=== PATIENT | female | born 1945 | race Caucasian/White ===

== ENCOUNTER 2018-01-14 09:23 | Inpatient (IN) | payer MEDICARE, MEDICAID ==
[2018-01-14 10:06] LABS: #Lymphocytes 0.8 thou/uL (1.20-3.40); #Monocytes 0.7 thou/uL (0.11-0.59); #Neutrophils 10.9 thou/uL (1.40-6.50); %Basophils 0.2 % (0.0-1.0); %Eosinophils 0.4 % (0.0-10.0); %Lymphocytes 6.5 % (21.0-51.0); %Monocytes 5.4 % (0.0-10.0); %Neutrophils 87.5 % (42.0-75.0); Hemoglobin 14.9 g/dL (12.0-16.0); Mean Corpuscular HGB CONC 33.5 g/dL (32.0-36.0); Mean Corpuscular Hemoglobin 30.4 pg (27.0-31.0); Mean Corpuscular Volume 90.7 fl (81.0-99.0); Mean Platelet Volume 7.1 fL (7.4-10.4); Platelet Count 225 thou/uL (130-400); RBC Distribution Width 11.8 % (11.5-14.5); Red Blood Cell (RBC) Count 4.89 mill/uL (4.20-5.40); White Blood Cell (WBC) Count 12.4 thou/uL (4.8-10.8)
[2018-01-14 10:24] LABS: ALT (SGPT) 26 U/L (8-55); AST (SGOT) 21 U/L (5-34); Alkaline Phosphatase 60 U/L (40-150); Anion Gap 12 mmol/L (10-20); BUN (Urea Nitrogen) 13 mg/dL (9.8-20.1); Bilirubin, Total 1.1 mg/dL (0.2-1.2); Calc. Creatinine Clearance 0 mL/min (70-130); Calcium 9.6 mg/dL (7.8-10.44); Carbon Dioxide 24 mmol/L (23-31); Chloride 105 mmol/L (98-107); Estimated GFR-MDRD 78; Globulin 2.9 g/dL (2.4-3.5); Glucose 141 mg/dL (83-110); Lipase 22 U/L (8-78); Potassium 3.5 mmol/L (3.5-5.1); Protein, Total 6.9 g/dL (6.0-8.3); Sodium 137 mmol/L (136-145)
--- NOTE | 2018-01-14 10:51 | ULT ---
RIGHT UPPER QUADRANT ULTRASOUND: Indication: Right upper quadrant pain. Nausea, vomiting, and diarrhea. Technique: Grayscale and doppler ultrasound images were obtained in the right upper quadrant. FINDINGS: Visualized aspect of the abdominal aorta are unremarkable. No focal hepatic lesion is evident. Visualized gallbladder is unremarkable. Sonographic Munguia's sign is indeterminate. Common bile duct measured 4 mm. Visualized aspects of the pancreas are within normal limits. The right kidney measures 10.4 cm in length. No focal renal lesion or hydronephrosis is evident. IMPRESSION: No acute sonographic abnormalities seen in the right upper quadrant. POS: [facility]
--- NOTE | 2018-01-14 11:24 | CT ---
CT ABDOMEN AND PELVIS WITHOUT CONTRAST: Date: 01/14/18 HISTORY: Nausea, vomiting, diarrhea, and abdominal pain. FINDINGS: Absence of oral and IV contrast reduces the sensitivity of exam, particularly for evaluation of solid organs and bowel. Comparison made with exam of 10/15/16. There are mild dependent changes in the lung bases. No free air is seen in the abdomen or pelvis. No calcified gallstones are seen. No calculi noted in the kidneys, ureters, or the urinary bladder. No h ydroureteronephrosis is noted on either side. There is dilatation of the proximal and mid small bowel loops. There is a small amount of free fluid in the pelvis. There are vascular calcifications without evidence of aneurysmal dilatation of the abdominal aorta. T here are degenerative changes in the spine. Surgical clips in the retroperitoneum and pelvis are agai n noted. IMPRESSION: Findings are suspicious for small bowel obstruction. POS: [facility]
[2018-01-14] MEDS ORDERED: Benzocaine 20% Spray 60 ML CAN ONE (11:43)
--- NOTE | 2018-01-14 11:49 | PDOC.PN ---
- Subjective Encounter Start Date: 01/14/18 Encounter Start Time: 11:48 -: old records requested/rev see my H & P later - Objective MAR Reviewed: Yes Result Diagrams: 01/14/18 09:51 01/14/18 09:51 Radiology Reviewed by me: Yes EKG Reviewed by me: Yes Phys Exam - Physical Examination Constitutional: NAD HEENT: PERRLA, moist MMs, sclera anicteric Neck: no JVD, supple Respiratory: no wheezing, no rales, no rhonchi Cardiovascular: RRR, no significant murmur, no rub Gastrointestinal: soft, no distention, positive bowel sounds discomfort Musculoskeletal: no edema, pulses present Neurological: non-focal, normal sensation, moves all 4 limbs Psychiatric: normal affect, A&O x 3 Skin: no rash, normal turgor Dx/Plan (1) SBO (small bowel obstruction) Code(s): K56.69 - OTHER INTESTINAL OBSTRUCTION * DO NOT USE * Status: Acute (2) Dyslipidemia Code(s): E78.5 - HYPERLIPIDEMIA, UNSPECIFIED Status: Chronic (3) Hx of anxiety disorder Code(s): Z86.59 - PERSONAL HISTORY OF OTHER MENTAL AND BEHAVIORAL DISORDERS Status: Chronic (4) Hypertension Code(s): I10 - ESSENTIAL (PRIMARY) HYPERTENSION Status: Chronic Qualifiers: (5) Hypothyroidism Code(s): E03.9 - HYPOTHYROIDISM, UNSPECIFIED Status: Chronic (6) Uterine cancer Code(s): C55 - MALIGNANT NEOPLASM OF UTERUS, PART UNSPECIFIED Status: Chronic - Plan cont current plan of care * NG tube with LIS * surgery consult * IVF * see my H & P later for further detail. Review of Systems - Review of Systems Constitutional: negative: fever, chills, sweats, weakness, malaise, other Eyes: negative: Pain, Vision Change, Conjunctivae Inflammation, Eyelid Inflammation, Redness, Other ENT: negative: Ear Pain, Ear Discharge, Nose Pain, Nose Discharge, Nose Congestion, Mouth Pain, Mouth Swelling, Throat Pain, Throat Swelling, Other Respiratory: negative: Cough, Dry, Shortness of Breath, Hemoptysis, SOB with Excertion, Pleuritic Pain, Sputum, Wheezing Cardiovascular: negative: chest pain, palpitations, orthopnea, paroxysmal nocturnal dyspnea, edema, light headedness, other Gastrointestinal: Nausea, Vomiting, Abdominal Pain, Diarrhea. negative: Constipation, Melena, Hematochezia, Other Genitourinary: negative: Dysuria, Frequency, Incontinence, Hematuria, Retention , Other Musculoskeletal: negative: Neck Pain, Shoulder Pain, Arm Pain, Back Pain, Hand Pain, Leg Pain, Foot Pain, Other Skin: negative: Rash, Lesions, Abdulkadir, Bruising, Other - Medications/Allergies Allergies/Adverse Reactions: Allergies Allergy/AdvReac Type Severity Reaction Status Date / Time Iodine and Iodide Containing Allergy Severe Verified 08/23/14 21:14 Produc Hives metronidazole [From Flagyl] Allergy Verified 08/23/14 21:14
--- NOTE | 2018-01-14 13:02 | RAD ---
ABDOMEN 1 VIEW: Date: 01/14/18 HISTORY: NG tube placement, nausea and vomiting. FINDINGS/IMPRESSION: There is a nasogastric tube with tip in the projection of the stomach and the left upper quadrant. POS: [facility]
--- NOTE | 2018-01-14 13:05 | CON ---
DATE OF CONSULTATION: 01/14/2018 REQUESTING PHYSICIAN: Dr. Lenz HISTORY OF PRESENT ILLNESS: This is a 72-year-old woman who presented to emergency department today given a history of insidious onset crampy abdominal pain which started yesterday. The pain was sever e, associated with multiple episodes of nausea and bilious emesis. The patient passed a lot of flatu s yesterday. This morning she had 3 bouts of diarrhea which failed to relieve the abdominal pain. As a result, lorraine bernardo presented to emergency department. She denies any fevers or chills. She has had multiple previous hospital visits and admissions relating to acute small-bowel obstruction. She has had multiple abdo jai operations in the past. At the time of my evaluation, the patient reports a 2-3/10 abdominal pain. She has a nasogastric tub e which has been placed here in the emergency department which returns nonbilious moderate amount of gastric effluent. PAST MEDICAL HISTORY: Pertinent for uterine carcinoma, multiple previous small bowel obstructions, s he is status post chemoradiation therapy. Other pertinent past medical history includes chronic anxi ety disorder. PAST SURGICAL HISTORY: Pertinent for , total abdominal hysterectomy followed by adjuvant ch emoradiation therapy. She has had upper and lower endoscopies in the past. SOCIAL HISTORY: The patient lives at home independently. She denies any cigarette smoking, ethanol or illicit drug abuse. FAMILY HISTORY: Noncontributory for this patient's age. REVIEW OF SYSTEMS: This morning includes runny nose, cough over the last 24-36 hours. Otherwise, un remarkable except for as stated in past medical history and chief complaint. PHYSICAL EXAMINATION: GENERAL: This reveals a 72-year-old normally developed woman who is otherwise coherent and interacti ve and appears stated age. The patient is alert and oriented x3, appears to be in no acute distress at the time of my evaluation. VITAL SIGNS: Includes blood pressure 153/90, heart rate is 77, respiratory rate is 16, temperature i s 98.2 degrees Fahrenheit. Oxygen saturation is 92% on room air. HEENT: Reveals normocephalic and atraumatic. Pupils are equal, round, and reactive to light and acc ommodation. Extraocular muscles are intact bilaterally. No sclerae icterus present. Oral mucosa is pink and moist. No lesions are noted. NECK: Supple. No palpable lymphadenopathy or thyromegaly present. CARDIOVASCULAR: Reveals regular rate and rhythm, no murmurs or gallops auscultated. LUNGS: Clear to auscultation bilaterally. Her breathing is regular and unlabored. ABDOMEN: Soft with mild tenderness to deep palpation. There is no abdominal distention present. Mo wel sounds in all 4 quadrants appear normoactive. EXTREMITIES: Reveals 2+ radial and pedal pulses bilaterally. No ankle edema is present. NEUROLOGIC: Reveals no focal deficits present. PERTINENT LABORATORY DATA: Today includes a CBC with 12,400 white blood cells, hemoglobin 14.9, ijeoma tocrit is 44.3, platelet count is 225,000. Metabolic profile: Sodium 137, potassium is 3.5, chloride is 105, bicarbonate is 24, BUN 13, creatin ine 0.73, glucose 141, AST and ALT normal at 21 and 26 respectively. Serum lipase is normal at 22. I have personally reviewed the CT scan of the abdomen and pelvis which is without oral contrast. Helena s is remarkable for multiple distended loops of proximal and mid small bowel. There is, however, gas in the colon and rectum. There is minimal free fluid in the pelvis. There is no pneumatosis intest inalis seen. IMPRESSION: Multiple distended loops of small bowel, likely secondary to recurrent partial small-bow el obstruction versus gastroenteritis. PLAN: Bowel rest with nasogastric tube decompression. There is no acute surgical indication for thi s patient at this time. We will initiate a small bowel follow through and make further recommendatio ns as necessary. The above findings and plan discussed with the patient who indicates understanding of information giv en. I have answered her questions. Thank you again, Dr. Lenz for allowing me the opportunity to participate in the care of this patie nt.
[2018-01-14] MEDS ORDERED: Ondansetron PF 4 MG/2 ML Vial IVP PRN (13:12)
[2018-01-14] MEDS ORDERED: Eucerin (Mineral Oil/Petrolatum,White) 30 gm Jar TOP PRN (13:12)
[2018-01-14] MEDS ORDERED: Acetaminophen 325 MG TAB PO PRN (13:12)
[2018-01-14] MEDS ORDERED: hydrALAZINE 20 MG/ML VIAL SLOW IVP PRN (13:12)
[2018-01-14] MEDS ORDERED: Artificial Tears 18 DROP/0.9 ML EA EYE PRN (13:12)
[2018-01-14] MEDS ORDERED: Sodium Chloride 0.65% Nasal 44 ML BOT EA NARE PRN (13:12)
[2018-01-14 13:15] VITALS: BMI 30.2
--- NOTE | 2018-01-14 16:05 | RAD ---
GASTROGRAFIN SMALL BOWEL FOLLOW THROUGH: INDICATION: History of small bowel obstruction. COMPARISON: CT of the abdomen and pelvis dated 01/14/18. FINDINGS: Supervisor Of Officials image demonstrated mild to moderately dilated loop of gas-filled small bowel within the central abdomen. Gas is present within the colon. Subsequent images after administration of Gastrografin c ontrast through the nasogastric tube demonstrates filling of mildly prominent loops of small bowel wi thin the central abdomen. Subsequent images obtained at 1 hour demonstrate filling of contrast withi n the cecum and right hemicolon. There are numerous surgical clips within the lower abdomen and pelv is. There is scattered degenerative change. IMPRESSION: 1. Findings consistent with mild partial small bowel obstruction of the mid to distal small bowel. 2. Small bowel transit time of 1 hour. POS: [facility]
[2018-01-14] MEDS: D5 0.9% NS w/ 20 mEq KCl 1,000 ML IV SCH (16:14)
[2018-01-14] MEDS ORDERED: MD-Gastroview 120 ML BOT ONE (17:54)
[2018-01-15] MEDS: D5 0.9% NS w/ 20 mEq KCl 1,000 ML IV SCH ×2 (01:27→09:59)
[2018-01-15 04:29] LABS: Bilirubin Negative (Negative); Blood, Urine Negative (Negative); Clarity CLEAR (Clear); Glucose, Urine (Dipstick) Negative (Negative); Leukocyte Negative (Negative); Nitrite Negative (Negative); Protein, Urine (Dipstick) Negative (Neg-Trace); Specific Gravity, Urine 1.022 (1.002-1.036); Urobilinogen 0.2 mg/dL (0.2-1.0)
[2018-01-15 06:06] LABS: #Eosinphils 0.1 thou/uL (0.0-0.7); #Lymphocytes 1.1 thou/uL (1.20-3.40); #Monocytes 0.9 thou/uL (0.11-0.59); #Neutrophils 5.6 thou/uL (1.40-6.50); %Basophils 0.4 % (0.0-1.0); %Eosinophils 0.8 % (0.0-10.0); %Lymphocytes 14.2 % (21.0-51.0); %Monocytes 11.4 % (0.0-10.0); %Neutrophils 73.1 % (42.0-75.0); Hemoglobin 13.2 g/dL (12.0-16.0); Mean Corpuscular HGB CONC 33.6 g/dL (32.0-36.0); Mean Corpuscular Hemoglobin 30.8 pg (27.0-31.0); Mean Corpuscular Volume 91.6 fl (81.0-99.0); Platelet Count 212 thou/uL (130-400); RBC Distribution Width 11.9 % (11.5-14.5); Red Blood Cell (RBC) Count 4.28 mill/uL (4.20-5.40); White Blood Cell (WBC) Count 7.7 thou/uL (4.8-10.8)
[2018-01-15 06:31] LABS: Anion Gap 10 mmol/L (10-20); BUN (Urea Nitrogen) 16 mg/dL (9.8-20.1); Calc. Creatinine Clearance 103 mL/min (70-130); Calcium 8.7 mg/dL (7.8-10.44); Carbon Dioxide 26 mmol/L (23-31); Chloride 112 mmol/L (98-107); Estimated GFR-MDRD 88; Glucose 132 mg/dL (83-110); Potassium 3.2 mmol/L (3.5-5.1); Sodium 145 mmol/L (136-145)
--- NOTE | 2018-01-15 06:31 | HP ---
DATE OF ADMISSION: 01/14/2018. Date of service: 01/14/18 PRIMARY CARE PHYSICIAN: Dr. Armani Polanco. REASON FOR ADMISSION: Small-bowel obstruction. HISTORY OF PRESENT ILLNESS: A 72-year-old female who has previous history of small-bowel obstruction which was improved with conservative treatment that was happened in 09/2016. At this time, the patient has exactly similar presentation. The patient reports that she had a bowel movement yesterday as well as patient had this morning several loose stools. She was also having crampy abdominal pain associated with nausea and vomiting. She was feeling subjective feverish, but she did not measure her temperature. She denies any abdominal distension. She describes abdominal pain, crampy in nature, 10/10 in intensity, associated with nausea and vomiting. Patient denies any urinary tract infection symptoms. She denies any previous constipation. She denies any sick exposures. She denies any unusual food ingestion. She denies any hematochezia, melena or hematemesis. She denies any chest pain, palpitation or shortness of breath. Patient came to emergency room and she had CT of the abdomen and pelvis which showed findings suggestive of small-bowel obstruction. The patient also had ultrasound of abdomen which was unremarkable. Routine blood test was also unremarkable. General Surgery was consulted from the emergency room and they recommended to admit under Medicine Service. Patient is being admitted for small-bowel obstruction. After admission, the patient had a small bowel x-ray series and that showed partial small bowel obstruction. In the emergency room, we started NG tube with low intermittent suction and IV fluid was started. REVIEW OF SYSTEMS: REVIEW OF SYSTEMS: The following complete review of systems was negative, unless otherwise mentioned in the HPI or below: Constitutional: Weight loss or gain, ability to conduct usual activities. Skin: Rash, itching. Eyes: Double vision, pain. ENT/Mouth: Nose bleeding, neck stiffness, pain, tenderness. Cardiovascular: Palpitations, dyspnea on exertion, orthopnea. Respiratory: Shortness of breath, wheezing, cough, hemoptysis, fever or night sweats. Gastrointestinal: Poor appetite, abdominal pain, heartburn, nausea, vomiting, constipation, or diarrhea. Genitourinary: Urgency, frequency, dysuria, nocturia. Musculoskeletal: Pain, swelling. Neurologic/Psychiatric: Anxiety, depression. Allergy/Immunologic: Skin rash, bleeding tendency. Please see my HPI for pertinent positive and negative. All other review of systems reviewed and negative except as mentioned in the HPI. PAST MEDICAL HISTORY: History of recurrent small-bowel obstruction, last one in 09/2016 and before that patient had in 07/2016, history of uterine cancer, hypothyroidism, dyslipidemia, and hypertension. PAST PSYCHIATRIC HISTORY: Anxiety and depression. PAST SURGICAL HISTORY: and hysterectomy for uterine cancer. SOCIAL HISTORY: Patient is . She lives by herself at home. No history of tobacco, alcohol or illicit drug abuse. FAMILY HISTORY: No strong family history of premature coronary artery disease, stroke or cancer. ALLERGIES: FLAGYL, IODINE, and IODINE CONTAINING PRODUCTS. CURRENT HOME MEDICATIONS: Alprazolam 0.5 mg p.o. at bedtime p.r.n., aspirin 81 mg p.o. daily, chlorthalidone 12.5 mg p.o. daily, clotrimazole topical application b.i.d., Benadryl 25 mg q.6 hourly p.r.n., Synthroid 88 mcg p.o. daily, lisinopril 10 mg p.o. daily, MiraLax 17 grams p.o. daily, Zocor 20 mg p.o. at bedtime, triamcinolone topical application as directed. EMERGENCY ROOM COURSE: Reviewed. PHYSICAL EXAMINATION: VITAL SIGNS: On arrival, blood pressure 130/64, pulse 74, respiratory rate 15, temperature 97.8, saturation 96% on room air, and weight 84.8 kilograms. GENERAL: The patient is currently alert, oriented, no acute distress. HEAD: Normocephalic, atraumatic. EYES: Pupils round, reactive to light. Extraocular muscle intact. ENT: Oropharynx within normal limits. Moist mucous membranes, no oral lesion, no pharyngeal erythema, no exudate. NECK: Supple, no JVD, no thyromegaly, no carotid bruit, no jugular venous distention. LUNGS: Clear to auscultation without any rhonchi or rales. CARDIAC: S1 and S2 regular. No murmur, no gallop, no rub. ABDOMEN: Soft, bowel sounds hyperactive noted. Diffuse vague discomfort noted. No distention, no organomegaly, no mass, no peritoneal sign, no suprapubic tenderness. BACK: Examination unremarkable, no CVA tenderness. EXTREMITIES: Upper extremity passive movements of all joints are normal. Lower extremities: No edema. Good peripheral pulsation. SKIN: No skin rash. HEMATOLOGICAL SYSTEM: No lymphadenopathy. PSYCHIATRIC: Normal affect. SIGNIFICANT LABORATORY DATA AND IMAGING DATA: 1. CBC: WBC 12.4, hemoglobin 14.9, and platelet 225. 2. BMP: Sodium 137, potassium 3.5, chloride 105, carbon dioxide 24, anion gap 12, BUN 13, creatinine 0.73, glucose 141, calcium 9.6. 3. LFT: AST 21, ALT 26, alkaline phosphatase 60, albumin 4.0, and lipase 22. Urinalysis normal. 4. Stool for infection workup negative. 5. Abdomen x-ray showed nasogastric tube in stomach. 6. Small bowel x-ray showing partial small-bowel obstruction. 7. Abdomen and pelvis CT scan showing small-bowel obstruction. 8. Abdominal ultrasound unremarkable. ASSESSMENT AND PLAN/IMPRESSION: 1. Small-bowel obstruction. The patient has third episode of small-bowel obstruction. Previously, it was improved with conservative treatment. Currently, patient does not have any distention and she still has little bit bowel sound. Radiographically, patient had small-bowel obstruction. Small bowel x-ray also showing partial bowel obstruction. At this point, we will treat this condition conservatively with NG tube with low intermittent suction, n.p.o. except ice chips and medications. We will continue IV fluid, dextrose NS 20s mEq KCl 800 mL per hour. We will monitor on surgical floor. Neurosurgery will be consulted. Patient will need repeat abdominal x-ray tomorrow. Once patient's condition improves, then we will start clear liquid and advancing her diet. We are thinking that most likely this patient will not need any surgical intervention. 2. Hypertension. We will continue chlorthalidone 12.5 mg p.o. daily and lisinopril 10 mg p.o. daily. 3. Hypothyroidism, currently controlled. Continue Synthroid 88 mcg p.o. daily. 4. Dyslipidemia, controlled. Continue Zocor 20 mg p.o. at bedtime. 5. Anxiety/depression. Continue Xanax 0.5 mg p.o. at bedtime p.r.n. 6. Fluid, electrolytes, and nutrition. We are giving her IV fluid with dextrose with NS and KCl and we will repeat labs tomorrow and replace electrolytes accordingly. 7. Obesity with body mass index 30. Dietary education given. 8. Deep venous thrombosis prophylaxis, Lovenox 40 mg subcu daily. 9. Gastrointestinal prophylaxis, Protonix 40 mg IV daily. 10. Code status: The patient is FULL CODE. Patient does not have any surrogate decision maker. Disposition plan based on clinical course. We are expecting patient's stay in hospital more than 2 midnights. Plan of care discussed with the patient. We are going to send stool for infection workup as well during this admission. TENZIN
[2018-01-15 08:37] LABS: Magnesium 1.9 mg/dL (1.6-2.6); Phosphorus 2.3 mg/dL (2.3-4.7)
[2018-01-15] MEDS ORDERED: Pantoprazole 40 MG VIAL IVP SCH (09:00)
[2018-01-15] MEDS ORDERED: Enoxaparin Sodium 40 MG/0.4 ML SYRINGE SC SCH (09:00)
[2018-01-15] MEDS ORDERED: Potassium Phosphate 20 MMOL, Magnesium Sulfate 3 GM in Sodium Chloride 0.9% 250 ML 250 ML IVPB SCH (09:30)
--- NOTE | 2018-01-15 11:24 | PRG ---
DATE OF SERVICE: 01/15/2018 SUBJECTIVE: Ms. Barton is a 72-year-old woman with previous multiple abdominal operations who was ad mitted yesterday following multiple bouts of loose bowel movements associated with abdominal pain. R adiographic examination was suggestive of small-bowel obstruction. Nasogastric tube was placed in [facility] department and small bowel follow through was initiated. Overnight, the patient has had 5 bowel movements. She reports no abdominal pain this morning. Nasogastric tube output has been 150 mL of nonbilious effluent from insertion. In fact, over the last 12 hours, nasogastric tube output returned 500 mL of nonbilious output. PHYSICAL EXAMINATION: VITAL SIGNS: Currently includes blood pressure 115/74, pulse 68, respiration rate 16, temperature 98 degrees Fahrenheit, and oxygen saturation 94% on room air. HEART: Reveals regular rate and rhythm. No murmurs or gallops auscultated. CHEST: Lungs clear to auscultation bilaterally. Breathing is regular and unlabored. ABDOMEN: Soft, nontender, nondistended. Bowel sounds in all four quadrants appear normoactive. LABORATORY DATA: Laboratory findings includes CBC with 7,700 white blood cells, hemoglobin and hemat ocrit are stable at 13.2 and 39.2 respectively. Platelet count is 212,000. Metabolic profile; sodiu m 145, potassium is 3.2, chloride is 112, bicarbonate 26, BUN 16, creatinine 0.66, glucose 132, magne sium 1.9, and phosphorus is 2.3. I have also personally reviewed the small bowel follow through, which is remarkable for any significa nt bowel obstruction. In fact, transit time for contrast was 1 hour. IMPRESSION: 1. Resolved partial small-bowel obstruction. 2. Acute hypokalemia. 3. Acute hypophosphatemia. 4. Acute hypomagnesemia. PLAN: 1. Correct abnormal electrolytes. 2. Nasogastric tube will be removed. Diet will be initiated. 3. There is no acute surgical indication for this patient at this time.
[2018-01-15] MEDS ORDERED: diphenhydrAMINE 25 MG CAP PO PRN (14:19)
[2018-01-15] MEDS ORDERED: ALPRAZolam 0.5 MG TAB PO PRN (22:06)
--- NOTE | 2018-01-15 22:08 | PDOC.PN ---
- Subjective Encounter Start Date: 01/15/18 Encounter Start Time: 10:00 Patient seen and examined for SBO. No new complaints. No overnight events. No N/ V/abd pain - Objective Resuscitation Status: Resuscitation Status FULL:Full Resuscitation MAR Reviewed: Yes Vital Signs & Weight: Vital Signs (12 hours) Temp Pulse Resp BP Pulse Ox 01/15/18 20:00 98.3 F 75 18 119/73 97 01/15/18 15:37 97.8 F 76 16 136/78 96 01/15/18 11:46 97.4 F L 78 16 125/83 91 L I&O: 01/14/18 01/15/18 01/16/18 06:59 06:59 06:59 Intake Total 1650 1920 Output Total 950 Balance 700 1920 Result Diagrams: 01/15/18 05:36 01/16/18 03:13 Radiology Reviewed by me: Yes (CT abd - SBO) Phys Exam - Physical Examination Constitutional: NAD Respiratory: no wheezing, no rhonchi Cardiovascular: RRR, no rub Gastrointestinal: soft, non-tender, no distention, positive bowel sounds Musculoskeletal: no edema Neurological: moves all 4 limbs Dx/Plan - Plan DVT proph w/SCDs IMPRESSION: 1. SBO 2. Hypokalemia 3. Obesity BMI 30.2 4. HTN 5. Hypothyroidism PLAN: * NG tube dced * on Clear liqd diet - advance as tolerated * AM labs * Replace Potassium * Cont current meds as below Review of Systems - Review of Systems Respiratory: negative: Cough, Dry, Shortness of Breath, Hemoptysis, SOB with Excertion, Pleuritic Pain, Sputum, Wheezing Cardiovascular: negative: chest pain, palpitations, orthopnea, paroxysmal nocturnal dyspnea, edema, light headedness, other - Medications/Allergies Allergies/Adverse Reactions: Allergies Allergy/AdvReac Type Severity Reaction Status Date / Time Iodine and Iodide Containing Allergy Severe Verified 08/23/14 21:14 Produc Hives metronidazole [From Flagyl] Allergy Verified 08/23/14 21:14 Medications: Current Medications Acetaminophen (Tylenol) 650 mg PO Q4H PRN PRN Reason: Headache/Fever or Pain Artificial Tears (Tears Naturale) 0 drop EA EYE PRN PRN PRN Reason: Dry Eyes Diphenhydramine HCl (Benadryl) 25 mg PO Q6H PRN PRN Reason: Itching & Insomnia Last Admin: 01/15/18 14:57 Dose: 25 mg Hydralazine HCl (Apresoline) 10 mg SLOW IVP Q4H PRN PRN Reason: Systolic BP > 180 Mineral Oil/White Petrolatum (Eucerin Cream) 0 gm TOP BIDPRN PRN PRN Reason: Dry Skin Ondansetron HCl (Zofran) 4 mg IVP Q6H PRN PRN Reason: Nausea/Vomiting Pantoprazole Sodium (Protonix) 40 mg PO DAILY FERNANDA Sodium Chloride ([place] Nasal Phyllis 0.65%) 0 ml EA NARE QIDPRN PRN PRN Reason: Nasal Congestion
[2018-01-16 04:39] LABS: Anion Gap 12 mmol/L (10-20); BUN (Urea Nitrogen) 9 mg/dL (9.8-20.1); Calc. Creatinine Clearance 106 mL/min (70-130); Calcium 8.5 mg/dL (7.8-10.44); Carbon Dioxide 25 mmol/L (23-31); Chloride 106 mmol/L (98-107); Estimated GFR-MDRD Greater than 90; Glucose 95 mg/dL (83-110); Magnesium 2.5 mg/dL (1.6-2.6); Potassium 3.7 mmol/L (3.5-5.1); Sodium 139 mmol/L (136-145)
[2018-01-16] MEDS ORDERED: Levothyroxine Sodium 88 MCG TAB PO SCH (06:00)
[2018-01-16] MEDS ORDERED: Lisinopril 10 MG TAB PO SCH (09:00)
[2018-01-16 12:32] VITALS: BP 121/76; TEMP 98
--- NOTE | 2018-01-16 13:16 | PRG-2 ---
DATE OF SERVICE: 01/16/2018 ATTENDING PHYSICIAN: Dr. Akhil Mathews SUBJECTIVE: The patient is a 72-year-old female with multiple abdominal operations who was admitted 2 days ago following multiple bouts of loose bowel movements associated with abdominal pain.Radiographic exam was suggestive of small-bowel obstruction. She did have 5 bowel movements on the night of the . Today, she reports no abdominal pain, no nausea or vomiting and continues to pass gas from her bottom. Diet was initiated yesterday and she reports tolerating it well. She is dressed and up and moving about. Vital signs remain normal. GENERAL: AOx4, NAD ABD: soft, nontender, normoactive BS IMPRESSION: 1. Partial small bowel obstruction, resolved PLAN There is no surgical intervention needed at this time. She is stable for discharge from a general surgery standpoint. The patient was seen and examined by Dr. Mathews and myself and together formulated a plan. TENZIN
[2018-01-16] MEDS ORDERED: Atorvastatin Calcium 10 MG TAB PO SCH (21:00)
--- NOTE | 2018-01-17 09:37 | DIS ---
DATE OF ADMISSION: 01/14/2018 DATE OF DISCHARGE: 01/16/2018 DISCHARGE DISPOSITION: Home. FOLLOWUP: 1. Follow up with primary care physician, Dr. Lomeli in 1 week. 2. Follow up with General Surgery, Dr. Mathews in 2-3 weeks. The patient was seen and examined on the day of discharge. Denies any new complaints. No chest pain , shortness of breath, or palpitations. She is able to tolerate a regular diet. BRIEF HOSPITAL COURSE: The patient is a 72-year-old female with history of small bowel obstructions in the past, presented to the hospital with abdominal pain, nausea, and vomiting. Her workup in the emergency room including abdominal and pelvis CT was consistent with small-bowel obstruction. She wa s managed conservatively with NG tube suction and IV fluids. Next day, she underwent a Gastrografin small bowel follow through that showed findings consistent wit h partial small-bowel obstruction. She improved with conservative measures. Later on, NG tube was d iscontinued. Her diet was gradually advanced. The patient was seen by General Surgery this admissio n. Her electrolytes were monitored on a daily basis. She has been cleared for discharge by the [facility]. A stool workup was negative. SIGNIFICANT LABORATORY DATA: Potassium 3.2, at discharge 3.7. WBC on admission 12.4, at discharge 7 .7. FINAL DIAGNOSES: 1. Small-bowel obstruction. 2. Hypokalemia, corrected. 3. Obesity with a BMI 30.2. 4. Hypertension. 5. Hypothyroidism. 6. Dyslipidemia. Plan of care was discussed with the patient in detail. She stated understanding.
== END 2018-01-16 14:07 | disposition home or self-care (01) | DRG 390 ==
LOC: ERS 09:23 → SURG A 11:20
PROVIDERS: ADMIT Internal Medicine; ATTEND Internal Medicine
DX: K56.600 Partial intestinal obstruction, unspecified as to cause (principal); E83.39 Other disorders of phosphorus metabolism; E03.9 Hypothyroidism, unspecified; I10 Essential (primary) hypertension; E78.5 Hyperlipidemia, unspecified; F32.9 Major depressive disorder, single episode, unspecified; F41.9 Anxiety disorder, unspecified; E66.9 Obesity, unspecified; Z68.30 Body mass index [BMI] 30.0-30.9, adult; E87.6 Hypokalemia; E83.42 Hypomagnesemia
CPT/HCPCS: 36415; 74018; 74176; 74250; 76705; 80048; 80053; 81003; 83690; 83735; 84100; 85025; 87045; 87046; 87449; 87899; C9113; J1650; J3475; J7050

== ENCOUNTER 2018-02-27 14:26 | Emergency (ER) | payer MEDICARE, MEDICAID | END 2018-02-27 15:26 | disposition home or self-care (01) | LOC: ERS 14:26 | DX: T78.40XA Allergy, unspecified, initial encounter (principal); F41.9 Anxiety disorder, unspecified; F32.9 Major depressive disorder, single episode, unspecified; Z79.82 Long term (current) use of aspirin; Z79.899 Other long term (current) drug therapy | CPT/HCPCS: 99283 ==

== ENCOUNTER 2018-03-20 05:46 | Emergency (ER) | payer MEDICARE, MEDICAID ==
[2018-03-20 06:19] LABS: #Eosinphils 0.1 thou/uL (0.0-0.7); #Monocytes 0.5 thou/uL (0.11-0.59); %Basophils 0.9 % (0.0-1.0); %Eosinophils 1.3 % (0.0-10.0); %Lymphocytes 17.1 % (21.0-51.0); %Monocytes 9.1 % (0.0-10.0); %Neutrophils 71.6 % (42.0-75.0); Hemoglobin 13.1 g/dL (12.0-16.0); Mean Corpuscular HGB CONC 33.3 g/dL (32.0-36.0); Mean Corpuscular Hemoglobin 30.2 pg (27.0-31.0); Mean Corpuscular Volume 90.8 fL (78.0-98.0); Mean Platelet Volume 7.2 fL (7.4-10.4); Platelet Count 222 thou/uL (130-400); RBC Distribution Width 11.6 % (11.5-14.5); Red Blood Cell (RBC) Count 4.35 mill/uL (4.20-5.40); White Blood Cell (WBC) Count 5.5 thou/uL (4.8-10.8)
[2018-03-20] MEDS ORDERED: hydrOXYzine 25 MG TAB ONE (06:22)
[2018-03-20 06:42] LABS: Acetaminophen Less than 6.0 mcg/mL (10.0-30.0); Alcohol Less than 10 mg/dL (Less than 10); CK (CPK) 426 U/L (29-168); Salicylate Less than 8.0 mg/dL (15.0-30.0)
[2018-03-20 06:44] LABS: ALT (SGPT) 34 U/L (8-55); AST (SGOT) 31 U/L (5-34); Alkaline Phosphatase 54 U/L (40-150); Anion Gap 12 mmol/L (10-20); BUN (Urea Nitrogen) 11 mg/dL (9.8-20.1); Bilirubin, Total 1.3 mg/dL (0.2-1.2); Calc. Creatinine Clearance 0 mL/min (70-130); Calcium 9.7 mg/dL (7.8-10.44); Carbon Dioxide 27 mmol/L (23-31); Chloride 101 mmol/L (98-107); Estimated GFR-MDRD 81; Globulin 2.9 g/dL (2.4-3.5); Glucose 138 mg/dL (83-110); Potassium 3.2 mmol/L (3.5-5.1); Protein, Total 6.9 g/dL (6.0-8.3); Sodium 137 mmol/L (136-145)
== END 2018-03-20 06:38 | disposition home or self-care (01) ==
LOC: ERS 05:46
DX: T78.40XA Allergy, unspecified, initial encounter (principal); F41.9 Anxiety disorder, unspecified; F32.9 Major depressive disorder, single episode, unspecified; Z79.82 Long term (current) use of aspirin; Z79.899 Other long term (current) drug therapy
CPT/HCPCS: 36415; 80053; 80307; 82550; 84443; 85025; 99283

== ENCOUNTER 2018-03-31 15:59 | Observation (INO) | payer MEDICARE, MEDICAID ==
--- NOTE | 2018-03-31 17:23 | RAD ---
AP VIEW CHEST: HISTORY: A 72-year-old with a history of a panic attack and dizziness. COMPARISON: 08/23/2014 TECHNIQUE: AP view chest is obtained on 03/31/2018. FINDINGS: AP view chest demonstrates mild cardiomegaly seen. The lungs are well aerated. No evidence of activ e intrathoracic disease is seen. No evidence of effusions, pneumonia, or pneumothorax is seen. IMPRESSION: Unremarkable anterior-posterior view chest. POS: H
[2018-03-31 17:25] LABS: #Eosinphils 0.1 thou/uL (0.0-0.7); #Lymphocytes 1.2 thou/uL (1.20-3.40); #Monocytes 0.7 thou/uL (0.11-0.59); #Neutrophils 5.1 thou/uL (1.40-6.50); %Basophils 0.5 % (0.0-1.0); %Eosinophils 0.9 % (0.0-10.0); %Lymphocytes 16.4 % (21.0-51.0); %Monocytes 9.6 % (0.0-10.0); %Neutrophils 72.6 % (42.0-75.0); Hemoglobin 13.8 g/dL (12.0-16.0); Mean Corpuscular HGB CONC 34.8 g/dL (32.0-36.0); Mean Corpuscular Hemoglobin 31.1 pg (27.0-31.0); Mean Corpuscular Volume 89.4 fL (78.0-98.0); Mean Platelet Volume 6.7 fL (7.4-10.4); Platelet Count 248 thou/uL (130-400); RBC Distribution Width 11.5 % (11.5-14.5); Red Blood Cell (RBC) Count 4.44 mill/uL (4.20-5.40)
[2018-03-31 17:45] LABS: ALT (SGPT) 30 U/L (8-55); AST (SGOT) 27 U/L (5-34); Albumin 4.1 g/dL (3.4-4.8); Alkaline Phosphatase 59 U/L (40-150); Anion Gap 16 mmol/L (10-20); BUN (Urea Nitrogen) 13 mg/dL (9.8-20.1); Bilirubin, Total 0.5 mg/dL (0.2-1.2); Calc. Creatinine Clearance 0 mL/min (70-130); Calcium 9.8 mg/dL (7.8-10.44); Carbon Dioxide 24 mmol/L (23-31); Chloride 102 mmol/L (98-107); Estimated GFR-MDRD 74; Globulin 3.1 g/dL (2.4-3.5); Glucose 95 mg/dL (83-110); Potassium 3.6 mmol/L (3.5-5.1); Protein, Total 7.2 g/dL (6.0-8.3); Sodium 138 mmol/L (136-145)
[2018-03-31 17:49] LABS: Troponin I Less than 0.010 ng/mL (< 0.028)
[2018-03-31 17:53] LABS: CKMB 9.1 ng/mL (0-6.6)
[2018-03-31] MEDS ORDERED: Acetaminophen 325 MG TAB PO PRN (19:50)
[2018-03-31 20:47] LABS: Troponin I Less than 0.010 ng/mL (< 0.028)
[2018-03-31] MEDS ORDERED: ALPRAZolam 0.25 MG TAB PO PRN (23:17)
[2018-03-31 23:20] LABS: Troponin I Less than 0.010 ng/mL (< 0.028)
[2018-04-01 00:31] VITALS: BMI 30.5
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
[2018-04-01] MEDS ORDERED: Lisinopril 10 MG TAB PO SCH (09:00)
[2018-04-01 12:06] VITALS: BP 104/56; TEMP 98.5
--- NOTE | 2018-04-01 12:59 | PDOC.PN ---
- Subjective Encounter Start Date: 04/01/18 Encounter Start Time: 09:40 Subjective: no chest pain or sob or palp -: is amb in room - Objective Resuscitation Status: Resuscitation Status FULL:Full Resuscitation MAR Reviewed: Yes Vital Signs & Weight: Vital Signs (12 hours) Temp Pulse Resp BP BP Pulse Ox 04/01/18 11:05 98.5 F 80 18 104/56 L 95 04/01/18 08:56 113/55 L 04/01/18 08:50 97.6 F 71 20 04/01/18 07:37 97.6 F 71 20 113/55 L 94 L 04/01/18 04:55 98.0 F 69 18 121/59 L 95 Weight Weight 183 lb 9.6 oz I&O: 03/31/18 04/01/18 04/02/18 06:59 06:59 06:59 Intake Total 550 Output Total 1000 Balance -450 Result Diagrams: 03/31/18 17:14 03/31/18 17:13 Phys Exam - Physical Examination HEENT: PERRLA, moist MMs Neck: no JVD, supple Respiratory: no wheezing, no rales Cardiovascular: RRR, no significant murmur Gastrointestinal: soft, non-tender, positive bowel sounds Musculoskeletal: no edema, pulses present Neurological: non-focal, moves all 4 limbs Psychiatric: normal affect, A&O x 3 Dx/Plan (1) Chest pain Code(s): R07.9 - CHEST PAIN, UNSPECIFIED Status: Acute Qualifiers: Chest pain type: unspecified Qualified Code(s): R07.9 - Chest pain, unspecified (2) Dyslipidemia Code(s): E78.5 - HYPERLIPIDEMIA, UNSPECIFIED Status: Chronic (3) Hypertension Code(s): I10 - ESSENTIAL (PRIMARY) HYPERTENSION Status: Chronic Qualifiers: Hypertension type: essential hypertension (4) Hypothyroidism Code(s): E03.9 - HYPOTHYROIDISM, UNSPECIFIED Status: Chronic Qualifiers: Hypothyroidism type: unspecified Qualified Code(s): E03.9 - Hypothyroidism , unspecified - Plan trop x 3 -ve, clinically no pain -: dc pt home -: has f/u appt with cardio on of this month -: hemostable * .
[2018-04-01] MEDS ORDERED: Atorvastatin Calcium 10 MG TAB PO SCH (21:00)
[2018-04-02] MEDS ORDERED: Levothyroxine Sodium 88 MCG TAB PO SCH (06:00)
--- NOTE | 2018-04-03 05:00 | DIS ---
DATE OF ADMISSION: 03/31/2018 DATE OF DISCHARGE: 04/01/2018 DISCHARGE DISPOSITION: To home. PRIMARY DISCHARGE DIAGNOSIS: Chest pain which is noncardiac. SECONDARY DISCHARGE DIAGNOSES: Hypertension, hypothyroidism, and dyslipidemia. PROCEDURES DONE DURING HOSPITALIZATION: Chest x-ray done showed no acute cardiopulmonary abnormaliti es. H&H 13 and 39, platelet count 248. Troponin x3 was negative. TSH 1.97. BUN 13, creatinine 0.7 . DISCHARGE MEDICATIONS: Aspirin 81 mg p.o. daily, levothyroxine 88 mcg p.o. daily, lisinopril 10 mg p .o. daily, simvastatin 20 mg p.o. at bedtime, alprazolam p.r.n. for anxiety. ALLERGIES: Allergic to IODINE, METRONIDAZOLE, and PANTOPRAZOLE. DISCHARGE PLAN: The patient to follow up with Dr. Mathew, her news anchor on 04/15/2018 and to follow up with primary care physician in 1 week. BRIEF COURSE DURING HOSPITALIZATION: The patient initially got admitted on the with complaints of chest tightness. In view of multiple risk factors, the patient was placed under observation on te lemetry. She has had 3 sets of troponin done which were negative. EKGs did not reveal any new acute ischemic changes. She remained chest pain free after initial chest tightness on arrival. The patie nt has a followup appointment with her news anchor on 04/15/2018. She has been advised to follow up with Dr. Mathew. She is otherwise hemodynamically stable, ambulating and eating well prior to dischar . Please see a [id number] documentation on [facility] for the day of discharge.
== END 2018-04-01 15:56 | disposition home or self-care (01) ==
LOC: ERS 15:59 → 2SW 18:40
PROVIDERS: ADMIT Internal Medicine; ATTEND Internal Medicine
DX: R07.89 Other chest pain (principal); I10 Essential (primary) hypertension; E03.9 Hypothyroidism, unspecified; E78.5 Hyperlipidemia, unspecified; Z91.041 Radiographic dye allergy status; Z88.8 Allergy status to other drugs, medicaments and biological substances; Z79.82 Long term (current) use of aspirin; Z79.899 Other long term (current) drug therapy
CPT/HCPCS: 71045; 82553; 84484 ×2; 93005; 99285; G0378; 36415; 80053; 84443; 85025

== ENCOUNTER 2018-05-20 07:28 | Emergency (ER) | payer MEDICARE, MEDICAID ==
[2018-05-20 07:59] LABS: #Eosinphils 0.1 thou/uL (0.0-0.7); #Monocytes 0.6 thou/uL (0.11-0.59); #Neutrophils 3.6 thou/uL (1.40-6.50); %Basophils 0.4 % (0.0-1.0); %Eosinophils 1.3 % (0.0-10.0); %Lymphocytes 18.6 % (21.0-51.0); %Monocytes 11.4 % (0.0-10.0); %Neutrophils 68.4 % (42.0-75.0); Hemoglobin 13.2 g/dL (12.0-16.0); Mean Corpuscular HGB CONC 34.1 g/dL (32.0-36.0); Mean Corpuscular Hemoglobin 31.1 pg (27.0-31.0); Mean Corpuscular Volume 91.3 fL (78.0-98.0); Mean Platelet Volume 7.3 fL (7.4-10.4); Platelet Count 210 thou/uL (130-400); RBC Distribution Width 11.7 % (11.5-14.5); Red Blood Cell (RBC) Count 4.25 mill/uL (4.20-5.40); White Blood Cell (WBC) Count 5.3 thou/uL (4.8-10.8)
--- NOTE | 2018-05-20 08:12 | RAD ---
AP VIEW OF THE CHEST: INDICATION: History of nausea. COMPARISON: Prior study dated 03/31/18. IMPRESSION: There is stable cardiomegaly. No appreciable change is seen from the comparison study. POS: [facility]
[2018-05-20 08:21] LABS: ALT (SGPT) 26 U/L (8-55); AST (SGOT) 21 U/L (5-34); Albumin 3.9 g/dL (3.4-4.8); Alkaline Phosphatase 57 U/L (40-150); Anion Gap 11 mmol/L (10-20); BUN (Urea Nitrogen) 12 mg/dL (9.8-20.1); Bilirubin, Total 1.1 mg/dL (0.2-1.2); Calc. Creatinine Clearance 0 mL/min (70-130); Calcium 9.6 mg/dL (7.8-10.44); Carbon Dioxide 24 mmol/L (23-31); Chloride 107 mmol/L (98-107); Estimated GFR-MDRD 81; Globulin 2.9 g/dL (2.4-3.5); Glucose 102 mg/dL (83-110); Potassium 3.9 mmol/L (3.5-5.1); Protein, Total 6.8 g/dL (6.0-8.3); Sodium 138 mmol/L (136-145)
[2018-05-20 08:24] LABS: Troponin I Less than 0.010 ng/mL (< 0.028)
[2018-05-20 08:28] LABS: CKMB 8.8 ng/mL (0-6.6)
== END 2018-05-20 10:57 | disposition home or self-care (01) ==
LOC: ERS 07:28
DX: R11.0 Nausea (principal); I10 Essential (primary) hypertension; E03.9 Hypothyroidism, unspecified; E78.00 Pure hypercholesterolemia, unspecified; F41.9 Anxiety disorder, unspecified; F32.9 Major depressive disorder, single episode, unspecified; Z79.82 Long term (current) use of aspirin; Z79.899 Other long term (current) drug therapy
CPT/HCPCS: 36415; 71045; 80053; 82553; 84484; 85025

== ENCOUNTER 2018-05-30 11:54 | Emergency (ER) | payer MEDICARE, MEDICAID ==
[2018-05-30] MEDS ORDERED: Ondansetron HCl/PF 4 MG/2 ML Vial ONE (12:45)
[2018-05-30 13:05] LABS: Bilirubin Negative (Negative); Blood, Urine Negative (Negative); Clarity CLOUDY (Clear); Glucose, Urine (Dipstick) Negative (Negative); Leukocyte Trace (Negative); Nitrite Negative (Negative); Protein, Urine (Dipstick) Negative (Neg-Trace); Specific Gravity, Urine 1.015 (1.002-1.036); Urobilinogen 0.2 mg/dL (0.2-1.0)
[2018-05-30 13:07] LABS: Bacteria/HPF None Seen HPF (None Seen); Hyaline Casts/LPF 0-3 HYALINE CAST LPF (0-3 Hyaline); RBC/HPF 0-3 HPF (0-3); Squamous Epithelial 0-3 HPF (0-3); WBC/HPF 0-3 HPF (0-3)
[2018-05-30 13:24] LABS: #Lymphocytes 0.8 thou/uL (1.20-3.40); #Monocytes 0.7 thou/uL (0.11-0.59); #Neutrophils 10.4 thou/uL (1.40-6.50); %Basophils 0.1 % (0.0-1.0); %Eosinophils 0.3 % (0.0-10.0); %Lymphocytes 6.3 % (21.0-51.0); %Monocytes 5.8 % (0.0-10.0); %Neutrophils 87.5 % (42.0-75.0); Hemoglobin 14.7 g/dL (12.0-16.0); Mean Corpuscular HGB CONC 34.1 g/dL (32.0-36.0); Mean Corpuscular Hemoglobin 31.3 pg (27.0-31.0); Mean Corpuscular Volume 91.7 fL (78.0-98.0); Mean Platelet Volume 7.1 fL (7.4-10.4); Platelet Count 237 thou/uL (130-400); RBC Distribution Width 11.7 % (11.5-14.5); White Blood Cell (WBC) Count 11.9 thou/uL (4.8-10.8)
[2018-05-30 13:39] LABS: ALT (SGPT) 25 U/L (8-55); AST (SGOT) 19 U/L (5-34); Alkaline Phosphatase 68 U/L (40-150); Anion Gap 14 mmol/L (10-20); BUN (Urea Nitrogen) 12 mg/dL (9.8-20.1); Bilirubin, Total 0.8 mg/dL (0.2-1.2); Calc. Creatinine Clearance 0 mL/min (70-130); Calcium 9.7 mg/dL (7.8-10.44); Carbon Dioxide 22 mmol/L (23-31); Chloride 103 mmol/L (98-107); Estimated GFR-MDRD 80; Globulin 3.2 g/dL (2.4-3.5); Glucose 111 mg/dL (83-110); Lipase 23 U/L (8-78); Potassium 3.9 mmol/L (3.5-5.1); Protein, Total 7.2 g/dL (6.0-8.3); Sodium 135 mmol/L (136-145)
[2018-05-30] MEDS ORDERED: Dicyclomine 20 MG TAB ONE (15:51)
== END 2018-05-30 15:57 | disposition home or self-care (01) ==
LOC: ERS 11:54
DX: R11.2 Nausea with vomiting, unspecified (principal); R10.32 Left lower quadrant pain; E03.9 Hypothyroidism, unspecified; I10 Essential (primary) hypertension; F41.9 Anxiety disorder, unspecified; F32.9 Major depressive disorder, single episode, unspecified; Z79.899 Other long term (current) drug therapy; Z79.82 Long term (current) use of aspirin
CPT/HCPCS: 36415; 80053; 81003; 81015; 83690; 85025; 96374; J2405

== ENCOUNTER 2018-06-26 06:34 | Inpatient (IN) | payer MEDICARE, MEDICAID ==
[2018-06-26 07:20] LABS: #Eosinphils 0.1 thou/uL (0.0-0.7); #Lymphocytes 0.9 thou/uL (1.20-3.40); #Monocytes 0.6 thou/uL (0.11-0.59); #Neutrophils 5.4 thou/uL (1.40-6.50); %Basophils 0.3 % (0.0-1.0); %Eosinophils 0.7 % (0.0-10.0); %Lymphocytes 12.4 % (21.0-51.0); %Monocytes 9.1 % (0.0-10.0); %Neutrophils 77.4 % (42.0-75.0); Hemoglobin 14.2 g/dL (12.0-16.0); Mean Corpuscular HGB CONC 32.9 g/dL (32.0-36.0); Mean Corpuscular Volume 91.1 fL (78.0-98.0); Mean Platelet Volume 7.1 fL (7.4-10.4); Platelet Count 254 thou/uL (130-400); RBC Distribution Width 11.7 % (11.5-14.5); Red Blood Cell (RBC) Count 4.73 mill/uL (4.20-5.40); White Blood Cell (WBC) Count 6.9 thou/uL (4.8-10.8)
[2018-06-26 07:30] LABS: ALT (SGPT) 22 U/L (8-55); AST (SGOT) 18 U/L (5-34); Alkaline Phosphatase 68 U/L (40-150); Anion Gap 12 mmol/L (10-20); BUN (Urea Nitrogen) 10 mg/dL (9.8-20.1); Calc. Creatinine Clearance 0 mL/min (70-130); Calcium 9.6 mg/dL (7.8-10.44); Carbon Dioxide 24 mmol/L (23-31); Chloride 103 mmol/L (98-107); Estimated GFR-MDRD 81; Globulin 3.1 g/dL (2.4-3.5); Glucose 120 mg/dL (83-110); Lipase 25 U/L (8-78); Potassium 4.2 mmol/L (3.5-5.1); Protein, Total 7.1 g/dL (6.0-8.3); Sodium 135 mmol/L (136-145)
[2018-06-26 08:03] LABS: Bilirubin Negative (Negative); Blood, Urine Negative (Negative); Clarity CLEAR (Clear); Glucose, Urine (Dipstick) Negative (Negative); Leukocyte Negative (Negative); Nitrite Negative (Negative); Protein, Urine (Dipstick) Negative (Neg-Trace); Specific Gravity, Urine 1.013 (1.002-1.036); Urobilinogen 0.2 mg/dL (0.2-1.0); pH, Urine 6.5 (5.0-9.0)
[2018-06-26] MEDS ORDERED: methylPREDNISolone Sod Succ/PF 125 MG/2 ML VIAL ONE (08:29)
[2018-06-26] MEDS ORDERED: diphenhydrAMINE 50 MG CAP ONE (08:29)
[2018-06-26] MEDS ORDERED: Famotidine/PF 20 mg/2ml Vial ONE (08:29)
[2018-06-26] MEDS ORDERED: Benzocaine 20% Spray 60 ML CAN ONE (10:08)
--- NOTE | 2018-06-26 10:32 | CT ---
ABDOMEN AND PELVIS CT SCAN WITH IV CONTRAST: HISTORY: A 72-year-old female with abdominal pain. COMPARISON: 10/15/2016 FINDINGS: The lung bases are clear. The visualized liver, gallbladder, somewhat fatty replaced pancreas, splee n, and adrenal glands are unremarkable. No renal calculi or acute obstruction. There is some abn ormal, long segment, circumferential wall thickening of the terminal ileum and distal ileum, with brad e resultant proximal small bowel obstruction, with dilatation and air-fluid levels. This appearance has not significantly changed when compared to the prior study of 10/15/2016. In fact, at that time, there was more severe proximal small bowel dilatation. Findings concerning for nonspecific ileitis and resultant abnormal ileal wall thickening are considered possible etiologies. Trace amount of dat e cul-de-sac fluid. Status post hysterectomy. Very small intramuscular lipoma within the right ilio psoas distal muscle. IMPRESSION: 1. Abnormal long segment, circumferential wall thickening of the terminal ileum and distal ileum wit h possible small bowel obstruction. 2. Little change and actually slightly less abnormal small bowel dilatation than seen on the prior 2 017 study. 3. Trace free fluid in the pelvis. POS: [facility]
[2018-06-26] MEDS ORDERED: cloNIDine 0.1 MG TAB PO PRN (10:55)
[2018-06-26] MEDS ORDERED: traMADol HCl 50 MG TAB PO PRN (10:55)
[2018-06-26] MEDS ORDERED: Senokot S 8.6-50 MG TAB PO PRN (10:55)
[2018-06-26] MEDS ORDERED: Bisacodyl 10 MG SUPP PR PRN (10:55)
[2018-06-26] MEDS ORDERED: hydrALAZINE 20 MG/ML VIAL SLOW IVP PRN (10:55)
[2018-06-26] MEDS ORDERED: Nitroglycerin 0.4 MG TAB (25 Tab Bottle) SL PRN (10:55)
[2018-06-26] MEDS ORDERED: Acetaminophen 325 MG TAB PO PRN (10:55)
[2018-06-26] MEDS ORDERED: Calcium Carbonate 500 MG ChewTAB PO PRN (10:55)
[2018-06-26] MEDS ORDERED: Ondansetron HCl/PF 4 MG/2 ML Vial IVP PRN (10:55)
[2018-06-26] MEDS ORDERED: Bisacodyl 5 MG TAB PO PRN (10:55)
--- NOTE | 2018-06-26 11:03 | RAD ---
UPRIGHT PORTABLE CHEST 1 VIEW: HISTORY: A 72-year-old female with a history of diarrhea and abdominal cramping. COMPARISON: 05/20/2018. FINDINGS: Heart size is within normal limits. An NG tube is noted in place, the distal tip of the tube appears to be in the region of the distal esophagus and should probably be advanced roughly 10 cm or so to c ompletely enter the stomach. Heart size is normal. The lungs are clear. Atherosclerosis of the aor ta. IMPRESSION: Nasogastric tube tip in the distal esophagus which should probably be advanced at least 10 cm or so t o completely enter the stomach. Atherosclerosis of the aorta. No acute intrathoracic disease. POS: H
[2018-06-26] MEDS ORDERED: Famotidine/PF 20 mg/2ml Vial SLOW IVP SCH (11:15)
[2018-06-26] MEDS ORDERED: MEROPENEM 1 GM/50 ML 1 GM in Premix Bag 1 BAG IVPB SCH (11:30)
[2018-06-26 12:37] VITALS: BMI 28.5
[2018-06-26] MEDS: Sodium Chloride 0.9% 1,000 ML IV SCH (12:39)
[2018-06-26] MEDS ORDERED: ISOVUE-370 76%-LOCM 1 ML ONE (12:50)
--- NOTE | 2018-06-26 14:32 | HP ---
DATE OF ADMISSION: 06/26/2018 PRIMARY CARE PHYSICIAN: Dr. Lomeli. CHIEF COMPLAINT: Abdominal pain, nausea, and vomiting. HISTORY OF PRESENTING ILLNESS: Ms. Ramos is a pleasant 72-year-old female with past medical hist ory of multiple episodes of small bowel obstruction in the past and history of uterine cancer, dyslip idemia, hypertension, and hypothyroidism who presented to the emergency room with the above-mentioned complaint. History is mainly obtained by the patient herself. Electronic medical records have been reviewed. Ms. Smith reports that she has been feeling fine up until last evening. She ate 3 mashed potatoes wi th butter and some other stuff for dinner around 6:00 and shortly afterwards around 8:00 p.m., she st arted to feel bloated and had some abdominal pain followed by significant nausea. She did not have a ny vomiting up until this morning when she woke up. She had 2 episodes of vomiting this morning. Th e pain persisted on and off and because the patient has had multiple episodes of small bowel obstruct ion in the past, she decided to present to the emergency room this morning. She also reports that az has been having lots of loose stools since last night. She reports that she had 5 episodes of smal l bowel obstruction in 2016. She has been seen by General Surgery in the past. Other than that, she denies any recent illnesses. She denies any blood in her stools. She denies any fever or chills. She denies any dysuria, frequency or urgency. She denies any chest pain, shortness of breath. Upon presentation to the ER, she was hemodynamically stable with blood pressure 129/103 with a pulse of 88, saturating 95% on room air. She underwent CT scan of the abdomen and pelvis with IV contrast, which showed abnormal long segment, circumferential wall thickening of the terminal ileum and distal ileum with possible small-bowel obstruction. General Surgery, Dr. Mathews was contacted by the ER faraz olson who will be consulting on the patient. As per his direction, patient has got an NG tube and w ill be admitted to Medicine Team with n.p.o. status. At the time of my examination, the patient is quite comfortable and her abdominal pain is 2/10. PAST MEDICAL HISTORY: 1. History of recurrent small bowel obstructions, last one was in 12/2017. 2. History of uterine cancer. 3. Hypothyroidism. 4. Dyslipidemia. 5. Hypertension. PAST PSYCHIATRIC HISTORY: Anxiety and depression. PAST SURGICAL HISTORY: section and hysterectomy for uterine cancer. FAMILY HISTORY: Father of cancer. Mother of diabetes and heart failure. Brother of myocardial infarction and stroke. Sister has diabetes and renal failure. SOCIAL HISTORY: Patient lives alone, is a . She is independent with her ADLs and IDLs. Largel y, she lives in [facility]. She has no history of drug, tobacco or alcoho l abuse. ALLERGIES: Include METRONIDAZOLE. HOME MEDICATIONS: Are as follows; MiraLax 1 packet daily, risperidone 0.25 mg at bedtime, aspirin 81 mg daily, levothyroxine 88 mcg daily, Benadryl p.r.n., simvastatin 20 mg daily, lisinopril 10 mg stevo ly. REVIEW OF SYSTEMS: Twelve point review of systems was done and it is negative except for those menti oned in the history and physical. LABORATORY DATA AND IMAGING DATA: CBC shows neutrophils of 77% with normal WBC, otherwise unremarkab le. Serum chemistries show sodium 135, blood sugar 120, otherwise unremarkable. Lipase is normal. Urinalysis is unremarkable. Chest x-ray by my review has no evidence to suggest acute cardiopulmonar y abnormality. No effusion or edema. NG tube seen in the distal esophagus on the chest x-ray. CT s can of the abdomen and pelvis as per HPI. PHYSICAL EXAMINATION: VITAL SIGNS: Most recent vital signs, temperature 97.7, pulse of 66, respirations 16, saturating 94% on room air and blood pressure 126/79. GENERAL: No acute distress, awake, alert, oriented x3. HEENT: Mucous membrane is moist and pink. No oropharyngeal exudate or erythema. Head is normocepha lic and atraumatic. Pupils are equal, reactive to light and accommodation. Extraocular movement int act. NECK: Supple without any lymphadenopathy, JVD or bruit. CHEST: Clear to auscultation without any wheezing, rales or rhonchi. Rhythm is regular without any murmur, rubs or gallops. ABDOMEN: Mildly tender to palpation in the left upper quadrant and left lower quadrant. No guarding , rebound or rigidity. Bowel sounds are heard equally in all 4 quadrants. No hepatosplenomegaly. EXTREMITIES: Free of any cyanosis, clubbing, or edema. NEUROLOGIC: Examination is nonfocal. SKIN: Free of any rashes or bruises. I feel warm and dry to touch. PSYCHIATRIC: Normal affect. IMPRESSION AND PLAN: 1. Partial small-bowel obstruction. This is a recurrent episode for the patient. The patient is qu ite comfortable at this time and we will continue the conservative management with NG tube, n.p.o. st atus, and normal saline. General Surgery has been consulted and Dr. Mathews will see the patient later for possible small bowel follow through if needed if the symptoms do not improve. We will monitor h er electrolytes closely. She is currently hemodynamically stable to be admitted to medical floor. 2. Hypertension. Restart her home medications when she is cleared to take oral intake. Meanwhile, we will put her on p.r.n. IV antihypertensives. 3. Hypothyroidism. Resume Synthroid once she is cleared to take oral medications by General Surgery . 4. Dyslipidemia. Restart simvastatin once able to take p.o. medications. 5. Code status discussed with the patient in detail and she wants to be a FULL CODE for now. 6. Deep venous thrombosis and gastrointestinal prophylaxis. DISPOSITION: Ms. Ramos is currently being admitted to the hospital for small for recurrent small -bowel obstruction. Estimated length of stay at this time is at least 2-3 midnights. Further manage ment will depend upon her clinical course and recommendations from General Surgery Team.
[2018-06-26] MEDS: Famotidine/PF 20 mg/2ml Vial SLOW IVP SCH (19:38)
[2018-06-26] MEDS ORDERED: Famotidine 20 MG TAB PO SCH (21:00)
--- NOTE | 2018-06-26 22:52 | CON ---
DATE OF CONSULTATION: 06/26/2018 REQUESTING PHYSICIAN: Dr. Joshi. I have been asked to see Ms. Ramos 72-year-old woman with a known history of multiple intraabdomi nal operations. The patient presented to the emergency department with a complaint of insidious onset abdominal bloat ing and pain which started approximately 2 hours after dinner consisting of mashed potatoes and butte r. The patient reported multiple episodes of loose bowel movements. This continued up until this mo rning when she presented to emergency department. Her last bowel movement was approximately 0800 [address] rs in the emergency department. She also recorded the last flatus about the same time. Since then s he has had no abdominal pain, bloating, nausea, or vomiting. A nasogastric tube was placed in the em ergency department and this so far has returned very scant amount of clear gastric effluent, in fact, it was less than 100 mL more than 8 hours. The patient denies any fevers or chills. I have reviewed her medical record, she is in fact well known to me as I consulted with her last admi ssion in 12/2017 for possible small bowel obstruction at that time as well. Currently, she has no ab dominal pain. She is sitting up in the bed with her nurse at bedside, her legs crossed. She is hung ry. She has been hemodynamically stable and afebrile through this admission. Current vital signs in clude a blood pressure of 112/57, pulse 65, respiration rate is 18, temperature 97.7 degrees Fahrenhe it, oxygen saturation 95%. I have reviewed her laboratory status which includes a normal white blood cell count of 6900, hemoglobin and hematocrit 14.2 and 43.1 respectively. Platelet count is normal at 254,000. Metabolic profile is also unremarkable. I have personally reviewed the CT scan of the a bdomen and pelvis and was not impressed. The CT scan findings are in fact better done during her las t visit. She does have gas in the colon and rectum. IMPRESSION: Likely resolved gastroenteritis. There is no clinical evidence of acute small bowel obs truction at this time. PLAN: I discontinue her nasogastric tube. The patient will be started on clear liquid diet and adva nce as tolerated. Anticipate discharge within the next day unless there is any recurrence of abdomin al pain, nausea, or vomiting.
[2018-06-27 05:11] LABS: #Lymphocytes 1.2 thou/uL (1.20-3.40); #Monocytes 0.9 thou/uL (0.11-0.59); #Neutrophils 7.4 thou/uL (1.40-6.50); %Eosinophils 0.3 % (0.0-10.0); %Lymphocytes 12.8 % (21.0-51.0); %Monocytes 8.9 % (0.0-10.0); Hemoglobin 12.7 g/dL (12.0-16.0); Mean Corpuscular HGB CONC 33.2 g/dL (32.0-36.0); Mean Corpuscular Hemoglobin 30.8 pg (27.0-31.0); Mean Corpuscular Volume 92.8 fL (78.0-98.0); Mean Platelet Volume 7.1 fL (7.4-10.4); Platelet Count 231 thou/uL (130-400); RBC Distribution Width 11.7 % (11.5-14.5); Red Blood Cell (RBC) Count 4.11 mill/uL (4.20-5.40); White Blood Cell (WBC) Count 9.5 thou/uL (4.8-10.8)
[2018-06-27] MEDS: Sodium Chloride 0.9% 1,000 ML IV SCH ×2 (05:31→08:39)
[2018-06-27 05:34] LABS: Anion Gap 11 mmol/L (10-20); BUN (Urea Nitrogen) 11 mg/dL (9.8-20.1); Calc. Creatinine Clearance 106 mL/min (70-130); Calcium 8.9 mg/dL (7.8-10.44); Carbon Dioxide 23 mmol/L (23-31); Chloride 108 mmol/L (98-107); Estimated GFR-MDRD Greater than 90; Glucose 108 mg/dL (83-110); Potassium 3.7 mmol/L (3.5-5.1); Sodium 138 mmol/L (136-145)
[2018-06-27] MEDS: Enoxaparin Sodium 40 MG/0.4 ML SYRINGE SC SCH (08:34)
[2018-06-27] MEDS: Famotidine/PF 20 mg/2ml Vial SLOW IVP SCH ×2 (08:36→19:52)
[2018-06-27] MEDS ORDERED: Levothyroxine Sodium 88 MCG TAB PO SCH (10:30)
[2018-06-27] MEDS ORDERED: Lisinopril 10 MG TAB PO SCH (10:30)
--- NOTE | 2018-06-27 13:56 | PDOC.PN ---
- Subjective Encounter Start Date: 06/27/18 Encounter Start Time: 13:54 Subjective: feels well. able to eat and not have any abd pain/N/V -: some loose stools now - Objective Resuscitation Status: Resuscitation Status FULL:Full Resuscitation MAR Reviewed: Yes Vital Signs & Weight: Vital Signs (12 hours) Temp Pulse Resp BP BP Pulse Ox 06/27/18 11:07 97.5 F L 70 16 126/71 97 06/27/18 08:11 98.4 F 97 16 123/60 90 L 06/27/18 03:57 97.6 F 55 L 20 115/72 95 Weight Admit Weight 176 lb 12.8 oz Weight 176 lb 12.8 oz I&O: 06/26/18 06/27/18 06/28/18 06:59 06:59 06:59 Intake Total 1140 Balance 1140 Result Diagrams: 06/27/18 04:44 06/27/18 04:44 Phys Exam - Physical Examination Constitutional: NAD HEENT: PERRLA, moist MMs, sclera anicteric, oral pharynx no lesions Neck: no nodes, no JVD, supple, full ROM Respiratory: no wheezing, no rales, no rhonchi, clear to auscultation bilateral Cardiovascular: RRR, no significant murmur, no rub Gastrointestinal: soft, non-tender, no distention, positive bowel sounds Musculoskeletal: no edema, pulses present Neurological: non-focal, normal sensation, moves all 4 limbs Psychiatric: normal affect, A&O x 3 Skin: no rash Dx/Plan (1) Abdominal pain Code(s): R10.9 - UNSPECIFIED ABDOMINAL PAIN Status: Acute Comment: improved (2) SBO (small bowel obstruction) Code(s): K56.69 - OTHER INTESTINAL OBSTRUCTION * DO NOT USE * Status: Acute Comment: ruled out (3) Dyslipidemia Code(s): E78.5 - HYPERLIPIDEMIA, UNSPECIFIED Status: Chronic (4) Hx of anxiety disorder Code(s): Z86.59 - PERSONAL HISTORY OF OTHER MENTAL AND BEHAVIORAL DISORDERS Status: Chronic (5) Hypertension Code(s): I10 - ESSENTIAL (PRIMARY) HYPERTENSION Status: Chronic Qualifiers: (6) Hypothyroidism Code(s): E03.9 - HYPOTHYROIDISM, UNSPECIFIED Status: Chronic Qualifiers: (7) Uterine cancer Code(s): C55 - MALIGNANT NEOPLASM OF UTERUS, PART UNSPECIFIED Status: Chronic - Plan out of bed/ambulate, DVT proph w/SCDs advance diet.encourage Po intake -: am labs -: HH for DC -: likley DC in am if tolerates regular diet.NGT pulled yesterday . -: apprecite GS input * . Review of Systems - Review of Systems Constitutional: weakness, malaise. negative: fever, chills, sweats, other ENT: negative: Ear Pain, Ear Discharge, Nose Pain, Nose Discharge, Nose Congestion, Mouth Pain, Mouth Swelling, Throat Pain, Throat Swelling, Other Respiratory: negative: Cough, Dry, Shortness of Breath, Hemoptysis, SOB with Excertion, Pleuritic Pain, Sputum, Wheezing Cardiovascular: negative: chest pain, palpitations, orthopnea, paroxysmal nocturnal dyspnea, edema, light headedness, other Gastrointestinal: negative: Nausea, Vomiting, Abdominal Pain, Diarrhea, Constipation, Melena, Hematochezia, Other Genitourinary: negative: Dysuria, Frequency, Incontinence, Hematuria, Retention , Other Musculoskeletal: negative: Neck Pain, Shoulder Pain, Arm Pain, Back Pain, Hand Pain, Leg Pain, Foot Pain, Other Neurological: negative: Weakness, Numbness, Incoordination, Change in Speech, Confusion, Seizures, Other - Medications/Allergies Allergies/Adverse Reactions: Allergies Allergy/AdvReac Type Severity Reaction Status Date / Time Iodine and Iodide Containing Allergy Severe Verified 03/31/18 22:56 Produc Hives metronidazole [From Flagyl] Allergy Verified 03/31/18 22:56 pantoprazole [From Protonix] Allergy Verified 01/16/18 12:10 Medications: Current Medications Acetaminophen (Tylenol) 650 mg PO Q4H PRN PRN Reason: Headache/Fever/Mild Pain (1-3) Aspirin (Aspirin Chewable) 81 mg PO DAILY FERNANDA Atorvastatin Calcium (Lipitor) 10 mg PO HS FERNANDA Bisacodyl (Dulcolax) 10 mg PO DAILYPRN PRN PRN Reason: Constipation Bisacodyl (Dulcolax) 10 mg LA DAILYPRN PRN PRN Reason: Constipation Calcium Carbonate (Tums) 1,000 mg PO Q4H PRN PRN Reason: Heartburn or Indigestion Clonidine (Catapres) 0.1 mg PO Q4H PRN PRN Reason: Systolic BP > 160 Enoxaparin Sodium (Lovenox) 40 mg SC 0900 [facility] Last Admin: 06/27/18 08:34 Dose: Not Given Famotidine (Pepcid) 20 mg SLOW IVP BID [facility] Last Admin: 06/27/18 08:36 Dose: 20 mg Hydralazine HCl (Apresoline) 10 mg SLOW IVP Q4H PRN PRN Reason: Systolic BP > 170 Sodium Chloride (Normal Saline 0.9%) 1,000 mls @ 75 mls/hr IV .[id number] [facility] Last Admin: 06/27/18 08:39 Dose: 1,000 mls Levothyroxine Sodium (Synthroid) 88 mcg PO DAILY-AC [facility] Lisinopril (Zestril) 10 mg PO DAILY [facility] Nitroglycerin (Nitrostat) 0.4 mg SL Q5MIN PRN PRN Reason: Chest Pain Ondansetron HCl (Zofran) 4 mg IVP Q6H PRN PRN Reason: Nausea/Vomiting Risperidone (Risperidone) 0.25 mg PO HS [facility] Senna/Docusate Sodium (Senokot S) 2 tab PO BID PRN PRN Reason: Constipation Sodium Chloride (Flush - Normal Saline) 10 ml IVF Q12HR PRN PRN Reason: Saline Flush Last Admin: 06/27/18 08:36 Dose: 10 ml Tramadol HCl (Ultram) 50 mg PO Q4H PRN PRN Reason: Moderate Pain (4-6)
[2018-06-27] MEDS ORDERED: Polyethylene Glycol 3350 17 GM Packet PO PRN (16:35)
[2018-06-27] MEDS: diphenhydrAMINE 25 MG CAP PO PRN (18:21)
[2018-06-27] MEDS ORDERED: Atorvastatin Calcium 10 MG TAB PO SCH (21:00)
[2018-06-27] MEDS ORDERED: risperiDONE 0.25 MG TAB PO SCH (21:00)
[2018-06-28] MEDS ORDERED: Levothyroxine Sodium 88 MCG TAB PO SCH (07:30)
[2018-06-28] MEDS ORDERED: Lisinopril 10 MG TAB PO SCH (09:00)
[2018-06-28] MEDS: diphenhydrAMINE 25 MG CAP PO PRN (11:30)
[2018-06-28] MEDS: Sodium Chloride 0.9% 1,000 ML IV SCH ×2 (12:13→12:48)
[2018-06-28] MEDS: Enoxaparin Sodium 40 MG/0.4 ML SYRINGE SC SCH (12:14)
[2018-06-28] MEDS: Famotidine/PF 20 mg/2ml Vial SLOW IVP SCH (12:14)
--- NOTE | 2018-06-28 14:52 | DIS ---
DATE OF ADMISSION: 06/26/2018 DATE OF DISCHARGE: 06/28/2018 CONDITION AT THE TIME OF DISCHARGE: Stable and improved. DISCHARGE DISPOSITION: Home with [facility]. PRIMARY CARE PHYSICIAN: Dr. Collin Lomeli. PROCEDURES DONE IN THE HOSPITAL: CT scan of the abdomen and pelvis which was somewhat concerning for partial small-bowel obstruction. IN-HOUSE CONSULTATIONS: General Surgery, Dr. Mathews. DISCHARGE MEDICATIONS: Remain the same as admission medication. No changes were made. Please see [facility] EMR for further details. HISTORY OF PRESENT ILLNESS: Ms. Ramos is a pleasant 72-year-old female with past medical history of hypertension, dyslipidemia, hypothyroidism, and obesity, who presented to the emergency room with complaints of abdominal pain. She underwent a CT scan of the abdomen and pelvis in the Emergency Ro om with contrast which was concerning for partial small-bowel obstruction. Emergency room physician talked to the on-call General Surgery, Dr. Mathews and an NG tube was advised with n.p.o. status. This was started and IM team was called to admit this patient. Please see admission history and physical for further detail. The patient was otherwise hemodynamically stable at the time of admission. HOSPITAL COURSE: Dr. Mathews saw the patient next morning and after his examination, he found out that the patient did not have small-bowel obstruction. NG tube was discontinued and diet was advanced. The patient was monitored 1 more day even though she was cleared for discharge by General Surgery. [facility] patient was somewhat reluctant to leave the hospital and go home yesterday as she lives alone. [facility] was discussed for her and it was arranged with the help of the porter sample case. As of this morning, the patient is having frequent bowel movements, eating a regular diet without saurav sea, vomiting or abdominal pain. She insisted and took MiraLax actually because she felt that she wa s constipated and this morning, she has had 3 or 4 loose stools. PHYSICAL EXAMINATION: Otherwise unremarkable. She was seen and examined prior to discharge. VITAL SIGNS: This morning, temperature 97.6, pulse of 63, respirations 14, saturating 96% on room ai r, blood pressure 157/81 with repeat blood pressure of systolic 112. Home medications were restarted , and the patient tolerated it very well. GENERAL: No acute distress, awake, alert, oriented x3. CHEST: Clear to auscultation bilaterally. Rate and rhythm is regular. ABDOMEN: Soft, nontender, nondistended, positive bowel sound. LABORATORY EXAMINATION: Please see [facility] for details. As of now, the EMR is down for me to dicta te. The patient is instructed to follow up with the primary care physician in 1-2 weeks. She verbalizes understanding. The patient's blood pressure will be checked again and if it remains stable, she tal l be discharged home. She is ambulatory and hemodynamically stable.
[2018-06-28 15:53] VITALS: BP 121/78; TEMP 98.1
== END 2018-06-28 16:10 | disposition home health service (06) | DRG 392 ==
LOC: ERS 06:34 → T4-A 11:04
PROVIDERS: ADMIT Internal Medicine; ATTEND Internal Medicine
DX: K52.9 Noninfective gastroenteritis and colitis, unspecified (principal); E78.5 Hyperlipidemia, unspecified; I10 Essential (primary) hypertension; E03.9 Hypothyroidism, unspecified; Z85.42 Personal history of malignant neoplasm of other parts of uterus; F32.9 Major depressive disorder, single episode, unspecified; F41.9 Anxiety disorder, unspecified; Z88.8 Allergy status to other drugs, medicaments and biological substances; E66.9 Obesity, unspecified; K59.00 Constipation, unspecified; Z68.28 Body mass index [BMI] 28.0-28.9, adult; Z79.899 Other long term (current) drug therapy; Z79.82 Long term (current) use of aspirin
CPT/HCPCS: 36415; 71045; 74177; 80048; 80053; 81003; 83690; 85025; 93005; 96374; 96375; J2185; J2930; S0028

== ENCOUNTER 2018-12-28 17:09 | Emergency (ER) | payer MEDICARE, MEDICAID ==
[~2018-12-28 17:09] MED LIST: ISOVUE-370 76%-LOCM 1 ML ONE
[2018-12-28 17:52] LABS: #Eosinphils 0.1 thou/uL (0.0-0.7); #Lymphocytes 1.1 thou/uL (1.20-3.40); #Monocytes 0.8 thou/uL (0.11-0.59); %Basophils 0.6 % (0.0-1.0); %Eosinophils 0.9 % (0.0-10.0); %Lymphocytes 18.3 % (21.0-51.0); %Neutrophils 67.2 % (42.0-75.0); Mean Corpuscular HGB CONC 34.6 g/dL (32.0-36.0); Mean Corpuscular Hemoglobin 30.7 pg (27.0-31.0); Mean Corpuscular Volume 88.7 fL (78.0-98.0); Mean Platelet Volume 7.4 fL (7.4-10.4); Platelet Count 208 thou/uL (130-400); RBC Distribution Width 11.6 % (11.5-14.5); Red Blood Cell (RBC) Count 4.25 mill/uL (4.20-5.40)
[2018-12-28] MEDS ORDERED: methylPREDNISolone Sod Succ/PF 125 MG/2 ML VIAL ONE (17:53)
[2018-12-28] MEDS ORDERED: diphenhydrAMINE 50 MG/ML VIAL ONE (17:53)
[2018-12-28] MEDS ORDERED: Ondansetron PF 4 MG/2 ML Vial ONE (17:53)
[2018-12-28] MEDS ORDERED: Famotidine/PF 20 mg/2ml Vial ONE (17:53)
[2018-12-28 18:21] LABS: ALT (SGPT) 16 U/L (8-55); AST (SGOT) 24 U/L (5-34); Albumin 3.7 g/dL (3.4-4.8); Alkaline Phosphatase 51 U/L (40-150); Anion Gap 15 mmol/L (10-20); BUN (Urea Nitrogen) 11 mg/dL (9.8-20.1); Bilirubin, Total 0.9 mg/dL (0.2-1.2); Calc. Creatinine Clearance 0 mL/min (70-130); Calcium 9.1 mg/dL (7.8-10.44); Carbon Dioxide 24 mmol/L (23-31); Chloride 105 mmol/L (98-107); Estimated GFR-MDRD 77; Globulin 3.1 g/dL (2.4-3.5); Glucose 88 mg/dL (83-110); Lipase 28 U/L (8-78); Potassium 4.5 mmol/L (3.5-5.1); Protein, Total 6.8 g/dL (6.0-8.3); Sodium 139 mmol/L (136-145)
[2018-12-28 18:53] LABS: Bilirubin Negative (Negative); Blood, Urine Trace (Negative); Glucose, Urine (Dipstick) Negative (Negative); Leukocyte Negative (Negative); Nitrite Negative (Negative); Protein, Urine (Dipstick) Negative (Neg-Trace)
[2018-12-28 18:56] LABS: Clarity CLEAR (Clear)
[2018-12-28 18:57] LABS: Specific Gravity, Urine 1.012 (1.002-1.036)
[2018-12-28 19:03] LABS: Bacteria/HPF None Seen HPF (None Seen); RBC/HPF None Seen HPF (0-3); Squamous Epithelial 0-3 HPF (0-3); WBC/HPF None Seen HPF (0-3)
[2018-12-28 19:04] LABS: Hyaline Casts/LPF NONE SEEN LPF (0-3 Hyaline)
--- NOTE | 2018-12-28 19:04 | CT ---
CT abdomen and pelvis with IV contrast HISTORY: Abdominal pain. COMPARISON: 06/26/2018. FINDINGS: Lung bases are clear. The liver, spleen, kidneys, adrenal glands, and pancreas have a stevenson l CT appearance. Postoperative changes in the retroperitoneum. Calcification throughout the arterial structures. There are degenerative changes of the lumbar spine. Urinary bladder is intact. Gaseous distention of small bowel loops within the lower anterior abdomen is similar in appearance to the prior exam. Not the appearance of an obstruction. IMPRESSION: Atherosclerosis. Findings are stable. No acute abnormalities are demonstrated.
== END 2018-12-28 20:50 | disposition home or self-care (01) ==
LOC: ERS 17:09
DX: R10.30 Lower abdominal pain, unspecified (principal); E78.00 Pure hypercholesterolemia, unspecified; I10 Essential (primary) hypertension; E03.9 Hypothyroidism, unspecified; F41.9 Anxiety disorder, unspecified; F32.9 Major depressive disorder, single episode, unspecified; Z79.82 Long term (current) use of aspirin; Z79.899 Other long term (current) drug therapy
CPT/HCPCS: 51701; 74177; 80053; 81003; 81015; 83690; 85025; 93005; 96361; 96374; 96375; A4353; J1200; J2405; J2930; Q9966; S0028

== ENCOUNTER 2019-01-12 06:09 | Emergency (ER) | payer MEDICARE, MEDICAID ==
[2019-01-12 06:36] LABS: #Lymphocytes 0.9 thou/uL (1.20-3.40); #Monocytes 0.6 thou/uL (0.11-0.59); #Neutrophils 4.2 thou/uL (1.40-6.50); %Basophils 0.3 % (0.0-1.0); %Eosinophils 0.8 % (0.0-10.0); %Lymphocytes 15.9 % (21.0-51.0); %Monocytes 10.6 % (0.0-10.0); %Neutrophils 72.4 % (42.0-75.0); Hemoglobin 13.6 g/dL (12.0-16.0); Mean Corpuscular HGB CONC 31.9 g/dL (32.0-36.0); Mean Corpuscular Hemoglobin 29.2 pg (27.0-31.0); Mean Corpuscular Volume 91.5 fL (78.0-98.0); Mean Platelet Volume 7.9 fL (7.4-10.4); Platelet Count 204 thou/uL (130-400); RBC Distribution Width 11.8 % (11.5-14.5); Red Blood Cell (RBC) Count 4.65 mill/uL (4.20-5.40); White Blood Cell (WBC) Count 5.7 thou/uL (4.8-10.8)
[2019-01-12 06:59] LABS: ALT (SGPT) 18 U/L (8-55); AST (SGOT) 19 U/L (5-34); Alkaline Phosphatase 59 U/L (40-150); Anion Gap 13 mmol/L (10-20); BUN (Urea Nitrogen) 11 mg/dL (9.8-20.1); Bilirubin, Total 1.6 mg/dL (0.2-1.2); Calc. Creatinine Clearance 0 mL/min (70-130); Calcium 9.7 mg/dL (7.8-10.44); Carbon Dioxide 26 mmol/L (23-31); Chloride 102 mmol/L (98-107); Estimated GFR-MDRD 76; Glucose 119 mg/dL (83-110); Lipase 24 U/L (8-78); Potassium 4.1 mmol/L (3.5-5.1); Sodium 137 mmol/L (136-145)
[2019-01-12] MEDS ORDERED: Acetaminophen 500 MG TAB ONE ×2 (07:17)
== END 2019-01-12 07:27 | disposition home or self-care (01) ==
LOC: ERS 06:09
DX: E86.0 Dehydration (principal); I10 Essential (primary) hypertension; E03.9 Hypothyroidism, unspecified; E78.00 Pure hypercholesterolemia, unspecified; F41.9 Anxiety disorder, unspecified; F32.9 Major depressive disorder, single episode, unspecified; Z79.899 Other long term (current) drug therapy; Z79.82 Long term (current) use of aspirin
CPT/HCPCS: 80053; 83690; 85025; 96360; 96361

== ENCOUNTER 2019-01-29 10:28 | Emergency (ER) | payer MEDICARE, MEDICAID ==
[2019-01-29 10:57] LABS: #Lymphocytes 0.9 thou/uL (1.20-3.40); #Monocytes 0.6 thou/uL (0.11-0.59); #Neutrophils 5.9 thou/uL (1.40-6.50); %Basophils 0.2 % (0.0-1.0); %Eosinophils 0.2 % (0.0-10.0); %Lymphocytes 12.2 % (21.0-51.0); %Monocytes 7.4 % (0.0-10.0); %Neutrophils 79.9 % (42.0-75.0); Hemoglobin 13.5 g/dL (12.0-16.0); Mean Corpuscular HGB CONC 33.8 g/dL (32.0-36.0); Mean Corpuscular Hemoglobin 30.7 pg (27.0-31.0); Mean Corpuscular Volume 90.9 fL (78.0-98.0); Mean Platelet Volume 7.7 fL (7.4-10.4); Platelet Count 222 thou/uL (130-400); RBC Distribution Width 11.7 % (11.5-14.5); White Blood Cell (WBC) Count 7.4 thou/uL (4.8-10.8)
[2019-01-29 11:18] LABS: ALT (SGPT) 20 U/L (8-55); AST (SGOT) 17 U/L (5-34); Albumin 4.1 g/dL (3.4-4.8); Alkaline Phosphatase 59 U/L (40-150); Anion Gap 12 mmol/L (10-20); BUN (Urea Nitrogen) 15 mg/dL (9.8-20.1); Bilirubin, Total 0.8 mg/dL (0.2-1.2); Calc. Creatinine Clearance 0 mL/min (70-130); Calcium 9.9 mg/dL (7.8-10.44); Carbon Dioxide 25 mmol/L (23-31); Chloride 104 mmol/L (98-107); Estimated GFR-MDRD 83; Globulin 2.8 g/dL (2.4-3.5); Glucose 99 mg/dL (83-110); Potassium 4.1 mmol/L (3.5-5.1); Protein, Total 6.9 g/dL (6.0-8.3); Sodium 137 mmol/L (136-145)
[2019-01-29 11:28] LABS: Bilirubin Negative (Negative); Blood, Urine Negative (Negative); Clarity CLEAR (Clear); Glucose, Urine (Dipstick) Negative (Negative); Leukocyte Negative (Negative); Nitrite Negative (Negative); Protein, Urine (Dipstick) Negative (Neg-Trace); Specific Gravity, Urine 1.009 (1.002-1.036); Urobilinogen 0.2 mg/dL (0.2-1.0)
[2019-01-29] MEDS ORDERED: Meclizine HCl 25 MG TAB ONE (11:39)
[2019-01-29] MEDS ORDERED: Ondansetron ODT 4 MG TAB ONE (11:39)
--- NOTE | 2019-01-29 11:59 | CT ---
Exam: CT brain without contrast HISTORY: Dizziness COMPARISON: None TECHNIQUE: Multiple contiguous axial images were obtained and a CT of the brain without contrast. FINDINGS: There are scattered hypodensities in the subcortical and periventricular white matter consi stent with small vessel ischemic disease. There is no evidence of hydrocephalus, intracranial hemorrhage, or extra-axial fluid collection. The calvarium and overlying soft tissues are unremarkable. The visualized paranasal sinuses and masto id air cells are well aerated. IMPRESSION: No evidence of acute intracranial abnormality
== END 2019-01-29 13:30 | disposition home or self-care (01) ==
LOC: ERS 10:28
DX: R42 Dizziness and giddiness (principal); E03.9 Hypothyroidism, unspecified; E78.00 Pure hypercholesterolemia, unspecified; F41.9 Anxiety disorder, unspecified; F32.9 Major depressive disorder, single episode, unspecified; Z79.82 Long term (current) use of aspirin; Z79.899 Other long term (current) drug therapy
CPT/HCPCS: 70450; 80053; 81003; 84484; 85025; 93005; J8499; Q0162

== ENCOUNTER 2019-02-03 06:21 | Emergency (ER) | payer MEDICARE, MEDICAID ==
[2019-02-03 07:11] LABS: #Lymphocytes 0.9 thou/uL (1.20-3.40); #Monocytes 0.6 thou/uL (0.11-0.59); #Neutrophils 4.4 thou/uL (1.40-6.50); %Basophils 0.3 % (0.0-1.0); %Eosinophils 0.5 % (0.0-10.0); %Monocytes 9.9 % (0.0-10.0); %Neutrophils 74.3 % (42.0-75.0); Hemoglobin 14.2 g/dL (12.0-16.0); Mean Corpuscular HGB CONC 33.5 g/dL (32.0-36.0); Mean Corpuscular Hemoglobin 30.7 pg (27.0-31.0); Mean Corpuscular Volume 91.4 fL (78.0-98.0); Mean Platelet Volume 7.1 fL (7.4-10.4); Platelet Count 227 thou/uL (130-400); RBC Distribution Width 11.9 % (11.5-14.5); Red Blood Cell (RBC) Count 4.64 mill/uL (4.20-5.40)
[2019-02-03 07:28] LABS: ALT (SGPT) 20 U/L (8-55); AST (SGOT) 16 U/L (5-34); Albumin 4.2 g/dL (3.4-4.8); Alkaline Phosphatase 58 U/L (40-150); Anion Gap 11 mmol/L (10-20); BUN (Urea Nitrogen) 10 mg/dL (9.8-20.1); Calc. Creatinine Clearance 0 mL/min (70-130); Calcium 10.1 mg/dL (7.8-10.44); Carbon Dioxide 26 mmol/L (23-31); Chloride 101 mmol/L (98-107); Estimated GFR-MDRD 81; Globulin 2.9 g/dL (2.4-3.5); Glucose 103 mg/dL (83-110); Magnesium 1.9 mg/dL (1.6-2.6); Potassium 4.2 mmol/L (3.5-5.1); Protein, Total 7.1 g/dL (6.0-8.3); Sodium 134 mmol/L (136-145)
--- NOTE | 2019-02-03 07:38 | RAD ---
RADIOGRAPH CHEST 1 VIEW: DATE: 02/03/2019 HISTORY: Dyspnea FINDINGS: There is no airspace density, pulmonary edema, or pneumothorax. The lateral costophrenic angles are n ot effaced. IMPRESSION: No acute pulmonary findings.
[2019-02-03 07:40] LABS: Bilirubin Negative (Negative); Blood, Urine Negative (Negative); Clarity CLEAR (Clear); Glucose, Urine (Dipstick) Negative (Negative); Leukocyte Negative (Negative); Nitrite Negative (Negative); Protein, Urine (Dipstick) Negative (Neg-Trace); Urobilinogen 0.2 mg/dL (0.2-1.0); pH, Urine 7.5 (5.0-9.0)
== END 2019-02-03 08:24 | disposition home or self-care (01) ==
LOC: ERS 06:21
DX: E86.0 Dehydration (principal); F41.9 Anxiety disorder, unspecified; F32.9 Major depressive disorder, single episode, unspecified; Z79.899 Other long term (current) drug therapy; Z79.82 Long term (current) use of aspirin
CPT/HCPCS: 71045; 80053; 81003; 83735; 85025; 93005; 96360

== ENCOUNTER 2019-02-07 07:14 | Observation (INO) | payer MEDICARE, MEDICAID ==
[2019-02-07 07:38] LABS: #Lymphocytes 0.9 thou/uL (1.20-3.40); #Monocytes 0.8 thou/uL (0.11-0.59); #Neutrophils 5.1 thou/uL (1.40-6.50); %Basophils 0.7 % (0.0-1.0); %Eosinophils 0.3 % (0.0-10.0); %Lymphocytes 12.8 % (21.0-51.0); %Monocytes 11.8 % (0.0-10.0); %Neutrophils 74.5 % (42.0-75.0); Mean Corpuscular HGB CONC 35.1 g/dL (32.0-36.0); Mean Corpuscular Hemoglobin 31.3 pg (27.0-31.0); Mean Corpuscular Volume 89.1 fL (78.0-98.0); Mean Platelet Volume 6.8 fL (7.4-10.4); Platelet Count 221 thou/uL (130-400); RBC Distribution Width 11.8 % (11.5-14.5); Red Blood Cell (RBC) Count 4.47 mill/uL (4.20-5.40); White Blood Cell (WBC) Count 6.8 thou/uL (4.8-10.8)
--- NOTE | 2019-02-07 07:46 | RAD ---
RADIOGRAPH CHEST 1 VIEW: DATE: 02/07/2019 HISTORY: 73-year-old female with chest pain FINDINGS: There is cardiomegaly. There is no evidence of airspace density, pulmonary edema, or pneumothorax. Th e lateral costophrenic angles are not effaced. IMPRESSION: 1) No acute pulmonary findings. 2) cardiomegaly without congestive heart failure.
[2019-02-07 08:04] LABS: ALT (SGPT) 21 U/L (8-55); AST (SGOT) 21 U/L (5-34); Albumin 4.1 g/dL (3.4-4.8); Alkaline Phosphatase 61 U/L (40-150); Anion Gap 15 mmol/L (10-20); BUN (Urea Nitrogen) 12 mg/dL (9.8-20.1); Bilirubin, Total 1.4 mg/dL (0.2-1.2); CK (CPK) 195 U/L (29-168); Calc. Creatinine Clearance 0 mL/min (70-130); Calcium 9.7 mg/dL (7.8-10.44); Carbon Dioxide 22 mmol/L (23-31); Chloride 99 mmol/L (98-107); Estimated GFR-MDRD 88; Globulin 2.4 g/dL (2.4-3.5); Glucose 108 mg/dL (83-110); Lipase 31 U/L (8-78); Potassium 4.2 mmol/L (3.5-5.1); Protein, Total 6.5 g/dL (6.0-8.3); Sodium 132 mmol/L (136-145)
--- NOTE | 2019-02-07 09:37 | RAD ---
ABDOMEN ONE VIEW: HISTORY: abdominal pain FINDINGS: Postop changes seen in the lower abdomen and pelvis. The bowel gas pattern is unremarkable. There are degenerative changes with levoscoliosis of the lumbar spine.
[2019-02-07 11:48] LABS: Troponin I Less than 0.010 ng/mL (< 0.028)
[2019-02-07] MEDS ORDERED: ADENOSINE 60 MG/20 ML VIAL ONE (11:55)
[2019-02-07] MEDS ORDERED: Ondansetron ODT 4 MG TAB PO PRN (12:10)
[2019-02-07] MEDS ORDERED: Ondansetron PF 4 MG/2 ML Vial IVP PRN ×2 (12:10→12:51)
--- NOTE | 2019-02-07 13:49 | MRI ---
MRI brain noncontrast HISTORY: Dizziness. Altered mental status. FINDINGS: There is no evidence of acute intracranial hemorrhage or infarct. The ventricles appear nor mal in size, shape and position. Mild chronic ischemic small vessel disease within the periventricular white matter of each cerebral hemisphere. No mass effect or shift of midline structur es. Visualized paranasal sinuses remain well-aerated. IMPRESSION: No acute intracranial abnormalities are demonstrated.
--- NOTE | 2019-02-07 16:41 | NM ---
EXAM: CARDIAC SPECT HISTORY: Chest pain, hypertension, dyslipidemia TECHNIQUE: A myocardial perfusion scan was performed using the single isotope 1 day protocol with alex hnetium 99m sestamibi. [10 mCi] was injected intravenously for the rest exam followed by 30 mCi for the stress study. Pharmacologic stress with adenosine was monitored and interpreted by Dr. Juarez FINDINGS: No fixed or reversible defects are seen. Gated SPECT LVEF: 48% Wall motion exam: No significant wall motion abnormalities are seen. IMPRESSION: No evidence of reversible ischemia
[2019-02-07] MEDS: Sodium Chloride 0.9% 1,000 ML IV SCH (16:57)
[2019-02-07 17:21] LABS: Troponin I Less than 0.010 ng/mL (< 0.028)
--- NOTE | 2019-02-07 19:49 | HP ---
CHIEF COMPLAINT: Chest tightness and dizziness. HISTORY OF PRESENT ILLNESS: The patient is a 73-year-old female with past medical history significant for hypertension, hyperlipidemia, and hypothyroidism, who presented to the ED today with complaints of chest tightness. She states that her discomfort began around 6:00 a.m. this morning. It radiates to her back. Associated symptoms include shortness of breath and nausea. The patient is a somewhat poor historian, and seems to be pointing to her back when she is speaking of her chest tightness. In any case, it seems to have happened recurrently, and her primary certified driver examiner, Dr. Brown had wanted to schedule a stress test, but the patient has had some transportation issues. The patient also reports some dizziness, although it does not seem to be associated with her episode of chest tightness. She states that the dizziness has made it hard for her to walk at times, and is the reason that she can no longer drive. The dizziness does not seem to be presyncopal in nature, but she reports that her "head feels as if it is spinning, not the room." She states that Dr. Brown had her wear a monitor for some time, which I am assuming was to rule out bradyarrhythmia as a cause for her dizziness. Upon my interview, the patient is chest pain free. She does not report any nausea, chest pain, or back pain at this time. Workup on arrival has included an EKG, which showed no acute ST or T-wave changes. Two of her serial cardiac enzymes have been negative. REVIEW OF SYSTEMS: A 12-point review of systems performed and is negative except that stated above. The patient specifically denies any vomiting, abdominal pain, fever, or recent sick contacts. PAST MEDICAL HISTORY: 1. History of recurrent small-bowel obstructions. 2. History of uterine cancer. 3. Hypothyroidism. 4. Dyslipidemia. 5. Hypertension. 6. Anxiety and depression. PAST SURGICAL HISTORY: and hysterectomy for uterine cancer. PAST PSYCHIATRIC HISTORY: Anxiety and depression. SOCIAL HISTORY: The patient lives alone. She denies any alcohol, illicit drug use, or smoking history. FAMILY HISTORY: Positive for GA and stroke in her brother. ALLERGIES: FLAGYL. HOME MEDICATIONS: 1. Aspirin 81 mg daily. 2. Levothyroxine 100 mcg daily. 3. Lisinopril 20 mg daily. 4. Simvastatin 20 mg daily. 5. Risperidone 0.25 mg daily. 6. MiraLAX p.r.n. 7. Meclizine 50 mg orally every 12 hours. PHYSICAL EXAMINATION: VITAL SIGNS: Blood pressure 119/69 and pulse 68. The patient is afebrile, temperature 97.5, and O2 saturation is 98% on room air. GENERAL: The patient is a moderately obese female, resting comfortably in bed, in no acute distress. HEENT: Head is atraumatic and normocephalic. Positive for strabismus in the left eye. NECK: Supple. No lymphadenopathy. Trachea is midline. CV: S1 and S2. Regular rate and rhythm. No appreciable murmurs, rubs, or gallops. LUNGS: Regular respiratory rate and pattern. Clear to auscultation bilaterally. ABDOMEN: Soft. Positive bowel sounds. Nontender. EXTREMITIES: No edema. +2 DP pulses bilaterally. SKIN: Warm and dry. No rashes. NEUROLOGIC: Cranial nerves 2 through 12 grossly intact. The patient is nonfocal. She is alert and oriented x3. LABORATORY DATA: White blood cell count 6.8, hemoglobin 14, hematocrit 39.8, and platelet count is 221. Sodium 132, potassium 4.2, anion gap is 15, BUN is 12, creatinine is 0.66, bilirubin is 1.4. AST, ALT, and alkaline phosphatase all within normal limits. Creatine kinase mildly elevated at 195. Serial troponin is negative x3. Her lipase is negative. ASSESSMENT: 1. Chest tightness, atypical and typical features in the patient with multiple risk factors, recurrent. 2. Dizziness, unclear etiology. At this time, the patient seems to have had a negative outpatient workup with Holter monitor or other event monitor. 3. Hypertension. 4. Hyperlipidemia. 5. Anxiety and depression. 6. History of small-bowel obstructions. 7. Family history of coronary artery disease. PLAN: At this time given the patient's risk factors and recurrent chest pain, we will rule out ischemia with a nuclear stress test. The patient has also had some persistent dizziness, although this seems somewhat consistent with vertigo, we will rule out vertebrobasilar stroke with MRI. We will provide some gentle IV fluid resuscitation for her elevated CK. Further recommendations based on findings of noninvasive testing and her hospital course. The care of this patient has been discussed in detail with Dr. Arcos, who agrees with the above. Job ID: [id number]
[2019-02-07] MEDS ORDERED: risperiDONE 0.25 MG TAB PO SCH (21:00)
[2019-02-07] MEDS ORDERED: Atorvastatin Calcium 10 MG TAB PO SCH (21:00)
[2019-02-08] MEDS: Sodium Chloride 0.9% 1,000 ML IV SCH ×3 (02:50→08:51)
[2019-02-08] MEDS ORDERED: Levothyroxine Sodium 88 MCG TAB PO SCH (07:30)
[2019-02-08 08:00] VITALS: BP 126/61; TEMP 98.1
[2019-02-08] MEDS ORDERED: Aspirin Chewable 81 MG TAB PO SCH (09:00)
[2019-02-08] MEDS ORDERED: Lisinopril 20 MG TAB PO SCH (09:00)
[2019-02-08] MEDS ORDERED: Polyethylene Glycol 3350 17 GM Packet PO SCH (09:00)
--- NOTE | 2019-02-08 10:45 | PDOC.EVN ---
Event Note - Event Note Event Note: pt seen an examined agree with physician's assistance assessment and plan. pt's stress test and mri brain no acute finding. pt complained of vague abdomen bloating but able to tolerate her meals without nausea/vomiting or diarrhea. pt will be given a gi referral as outpatient.
--- NOTE | 2019-02-08 15:15 | DIS ---
DATE OF ADMISSION: 02/07/2019 DATE OF DISCHARGE: 02/08/2019 ADMITTING CHIEF COMPLAINT: Chest pain. DISCHARGE DIAGNOSES: 1. Chest pain, recurrent, atypical, nuclear stress test negative for reversible ischemia. 2. Dizziness, MRI negative for any vertebrae's role or cerebrovascular accident, consistent with benign paroxysmal positional vertigo. 3. Hypertension. 4. Hyperlipidemia. 5. Anxiety and depression. 6. History of small bowel obstructions. 7. Family history of coronary artery disease. BRIEF HOSPITAL COURSE: The patient is a 73-year-old female with past medical history as outlined above, who presented to the ED with complaints of chest tightness. She stated that the discomfort began around 6 a.m., on the morning of her arrival. It seemed to radiate to the back. Associated symptoms included nausea and shortness of breath. She seemed to think that the discomfort came on after eating some yogurt. In any case, she was admitted for chest pain rule out. Her serial troponins were negative. Dr. Brown is her primary children librarian, and he had scheduled a previous nuclear stress test, which the patient had trouble getting to due to transportation issues. This was done in-house and revealed no evidence of reversible ischemia along with normal EF. Given her history of dizziness, which also seemed to be a recurrent problem for her, we did have MRI performed, which showed no intracranial abnormality and no evidence of CVA. The patient's CK was mildly elevated on arrival, and she was given IV fluid resuscitation, with resolution of her elevated CK. On the morning of my interview, she denies any chest discomfort. She does continue to complain of some dizziness, however, admits that she has not been taking her meclizine as prescribed and scheduled. She has ambulated back and forth to the bathroom without issue. She has eaten a full dinner and also full breakfast this morning without any digestive issues or problems. CONDITION AT DISCHARGE: Stable. DISCHARGE DISPOSITION: Home. PLAN: The patient will follow up with both Dr. Brown of Cardiology as well as her primary care physician, who is Dr. Lomeli. She will continue her home medication regimen with the addition of scheduled meclizine for the next several days at 25 mg p.o. t.i.d. Her other home medications include: 1. Aspirin 81 mg daily. 2. Levothyroxine 88 mcg daily. 3. Lisinopril 10 mg p.o. daily. 4. MiraLAX as needed. 5. Risperidone 1 mg p.o. at bedtime. All questions were answered to the patient's satisfaction. She will be discharged home today in good condition. The care of this patient has been discussed with Dr. Arcos, who agrees with the above. Job ID: [id number]
== END 2019-02-08 14:32 | disposition home or self-care (01) ==
LOC: ERS 07:14 → 2SW 11:41
PROVIDERS: ADMIT Internal Medicine; ATTEND Internal Medicine
DX: R07.89 Other chest pain (principal); R42 Dizziness and giddiness; I11.9 Hypertensive heart disease without heart failure; E78.5 Hyperlipidemia, unspecified; F32.9 Major depressive disorder, single episode, unspecified; F41.9 Anxiety disorder, unspecified; E03.9 Hypothyroidism, unspecified; Z87.19 Personal history of other diseases of the digestive system; Z85.42 Personal history of malignant neoplasm of other parts of uterus; Z82.49 Family history of ischemic heart disease and other diseases of the circulatory system; Z91.041 Radiographic dye allergy status; Z88.1 Allergy status to other antibiotic agents; Z88.8 Allergy status to other drugs, medicaments and biological substances; Z79.82 Long term (current) use of aspirin; Z79.899 Other long term (current) drug therapy
CPT/HCPCS: 70551; 71045; 74018; 78452; 80053; 82550 ×2; 83690; 84484 ×2; 85025; 93005; 93017; 94760; 96360; 96361 ×2; 99285; A9500; G0378 ×2; 36415; J0153

== ENCOUNTER 2019-02-13 09:39 | Emergency (ER) | payer MEDICARE, MEDICAID ==
--- NOTE | 2019-02-13 10:30 | RAD ---
Exam: 2 views abdomen HISTORY: Pain Comparison: 02/07/2019 FINDINGS: Nonspecific bowel gas pattern. No suspicious densities in the abdomen or pelvis. No differe ntial air fluid levels. No pneumoperitoneum Surgical clips are noted in the left or right hemiabdomen and hemipelvis Mild leftward curvature lumbar spine IMPRESSION: Nonspecific bowel gas pattern. No radiographic evidence of constipation.
[2019-02-13 10:59] LABS: #Lymphocytes 0.9 thou/uL (1.20-3.40); #Monocytes 0.6 thou/uL (0.11-0.59); #Neutrophils 5.7 thou/uL (1.40-6.50); %Basophils 0.1 % (0.0-1.0); %Eosinophils 0.3 % (0.0-10.0); %Lymphocytes 12.3 % (21.0-51.0); %Monocytes 8.8 % (0.0-10.0); %Neutrophils 78.4 % (42.0-75.0); Hemoglobin 14.1 g/dL (12.0-16.0); Mean Corpuscular HGB CONC 33.8 g/dL (32.0-36.0); Mean Corpuscular Hemoglobin 30.8 pg (27.0-31.0); Mean Corpuscular Volume 91.2 fL (78.0-98.0); Platelet Count 229 thou/uL (130-400); RBC Distribution Width 11.7 % (11.5-14.5); Red Blood Cell (RBC) Count 4.57 mill/uL (4.20-5.40); White Blood Cell (WBC) Count 7.3 thou/uL (4.8-10.8)
[2019-02-13 11:14] LABS: Bilirubin Negative (Negative); Blood, Urine Negative (Negative); Clarity CLEAR (Clear); Glucose, Urine (Dipstick) Negative (Negative); Leukocyte Negative (Negative); Nitrite Negative (Negative); Protein, Urine (Dipstick) Negative (Neg-Trace); Urobilinogen 0.2 mg/dL (0.2-1.0); pH, Urine 7.5 (5.0-9.0)
[2019-02-13 11:27] LABS: ALT (SGPT) 21 U/L (8-55); AST (SGOT) 16 U/L (5-34); Albumin 4.1 g/dL (3.4-4.8); Alkaline Phosphatase 64 U/L (40-150); Anion Gap 13 mmol/L (10-20); BUN (Urea Nitrogen) 10 mg/dL (9.8-20.1); Bilirubin, Total 1.1 mg/dL (0.2-1.2); Calc. Creatinine Clearance 0 mL/min (70-130); Calcium 9.7 mg/dL (7.8-10.44); Carbon Dioxide 24 mmol/L (23-31); Chloride 99 mmol/L (98-107); Estimated GFR-MDRD 86; Globulin 2.4 g/dL (2.4-3.5); Glucose 101 mg/dL (83-110); Lipase 37 U/L (8-78); Potassium 4.3 mmol/L (3.5-5.1); Protein, Total 6.5 g/dL (6.0-8.3); Sodium 132 mmol/L (136-145)
--- NOTE | 2019-02-13 11:46 | CT ---
CT ABDOMEN PELVIS WITHOUT ORAL AND IV CONTRAST: HISTORY:Abdominal pain, constipation COMPARISON: 01/14/2018 DISCLAIMER: Absence of oral and IV contrast reduces the sensitivity of the exam particularly for the evaluation of solid organs and bowel. FINDINGS: The lung bases are clear. No free air or free fluid is seen in the abdomen or pelvis. No calcified ga llstones are noted. A normal-appearing appendix is seen. There are vascular calcifications without evidence of aneurysmal dilatation of the abdominal aorta. Degenerative changes are present in the spi ne. The small bowel loops are not abnormally dilated. No calculi noted in the kidneys, ureters or the urinary bladder. No hydroureteronephrosis is seen on either side. IMPRESSION: No CT evidence of urinary tract calculi or obstruction.
== END 2019-02-13 11:55 | disposition home or self-care (01) ==
LOC: ERS 09:39
DX: K59.00 Constipation, unspecified (principal); E03.9 Hypothyroidism, unspecified; I10 Essential (primary) hypertension; E78.5 Hyperlipidemia, unspecified; F41.9 Anxiety disorder, unspecified; F32.9 Major depressive disorder, single episode, unspecified; Z79.899 Other long term (current) drug therapy; Z79.82 Long term (current) use of aspirin
CPT/HCPCS: 36415; 51701; 74019; 74176; 80053; 81003; 83690; 84484; 85025; 87086; 93005; A4353

== ENCOUNTER 2019-02-19 06:29 | Emergency (ER) | payer MEDICARE, MEDICAID ==
[2019-02-19 07:16] LABS: #Lymphocytes 0.8 thou/uL (1.20-3.40); #Monocytes 0.5 thou/uL (0.11-0.59); %Basophils 0.3 % (0.0-1.0); %Eosinophils 0.8 % (0.0-10.0); %Lymphocytes 15.4 % (21.0-51.0); %Monocytes 9.7 % (0.0-10.0); %Neutrophils 73.9 % (42.0-75.0); Hemoglobin 13.9 g/dL (12.0-16.0); Mean Corpuscular HGB CONC 34.9 g/dL (32.0-36.0); Mean Corpuscular Hemoglobin 31.4 pg (27.0-31.0); Mean Corpuscular Volume 90.1 fL (78.0-98.0); Mean Platelet Volume 7.1 fL (7.4-10.4); Platelet Count 230 thou/uL (130-400); RBC Distribution Width 11.8 % (11.5-14.5); Red Blood Cell (RBC) Count 4.43 mill/uL (4.20-5.40); White Blood Cell (WBC) Count 5.4 thou/uL (4.8-10.8)
[2019-02-19 07:37] LABS: ALT (SGPT) 22 U/L (8-55); AST (SGOT) 16 U/L (5-34); Alkaline Phosphatase 58 U/L (40-150); Anion Gap 11 mmol/L (10-20); BUN (Urea Nitrogen) 7 mg/dL (9.8-20.1); Bilirubin, Total 1.1 mg/dL (0.2-1.2); Calc. Creatinine Clearance 0 mL/min (70-130); Calcium 9.7 mg/dL (7.8-10.44); Carbon Dioxide 26 mmol/L (23-31); Chloride 100 mmol/L (98-107); Estimated GFR-MDRD 81; Globulin 2.6 g/dL (2.4-3.5); Glucose 139 mg/dL (83-110); Magnesium 1.9 mg/dL (1.6-2.6); Potassium 3.8 mmol/L (3.5-5.1); Protein, Total 6.6 g/dL (6.0-8.3); Sodium 133 mmol/L (136-145)
--- NOTE | 2019-02-19 08:11 | RAD ---
SINGLE VIEW OF THE CHEST: Comparison: 02-07-19 History: Difficulty breathing/dyspnea. FINDINGS: Single view of the chest shows a normal sized cardiomediastinal silhouette. There is no evidence of c onsolidation, mass, or pleural effusion. Degenerative changes are seen in the spine. IMPRESSION: No evidence of acute cardiopulmonary disease. POS: [facility]
== END 2019-02-19 08:27 | disposition home or self-care (01) ==
LOC: ERS 06:29
DX: J44.1 Chronic obstructive pulmonary disease with (acute) exacerbation (principal); E03.9 Hypothyroidism, unspecified; E78.5 Hyperlipidemia, unspecified; I10 Essential (primary) hypertension; E78.00 Pure hypercholesterolemia, unspecified; F41.9 Anxiety disorder, unspecified; F32.9 Major depressive disorder, single episode, unspecified; Z79.899 Other long term (current) drug therapy; Z79.82 Long term (current) use of aspirin
CPT/HCPCS: 36415; 71045; 80053; 83735; 83880; 84484; 85025; 93005

== ENCOUNTER 2019-02-26 07:35 | Emergency (ER) | payer MEDICARE, MEDICAID ==
--- NOTE | 2019-02-26 08:08 | RAD ---
CHEST 1 VIEW: Date: 02/26/19 HISTORY: Dyspnea. COMPARISON: Radiograph dated 02/19/19. FINDINGS: Lungs are hypoinflated with vascular crowding. No pneumothorax. No significant effusion. Heart size i s similar. No acute osseous abnormality. IMPRESSION: No acute intrathoracic abnormality. POS: [facility]
[2019-02-26 08:18] LABS: #Lymphocytes 0.7 thou/uL (1.20-3.40); #Monocytes 0.5 thou/uL (0.11-0.59); #Neutrophils 3.6 thou/uL (1.40-6.50); %Basophils 0.7 % (0.0-1.0); %Eosinophils 0.5 % (0.0-10.0); %Lymphocytes 14.8 % (21.0-51.0); Hemoglobin 13.7 g/dL (12.0-16.0); Mean Corpuscular HGB CONC 35.8 g/dL (32.0-36.0); Mean Corpuscular Hemoglobin 32.1 pg (27.0-31.0); Mean Corpuscular Volume 89.6 fL (78.0-98.0); Mean Platelet Volume 7.2 fL (7.4-10.4); Platelet Count 211 thou/uL (130-400); RBC Distribution Width 11.7 % (11.5-14.5); Red Blood Cell (RBC) Count 4.26 mill/uL (4.20-5.40); White Blood Cell (WBC) Count 4.9 thou/uL (4.8-10.8)
[2019-02-26 08:38] LABS: ALT (SGPT) 24 U/L (8-55); AST (SGOT) 18 U/L (5-34); Albumin 3.9 g/dL (3.4-4.8); Alkaline Phosphatase 57 U/L (40-150); Anion Gap 12 mmol/L (10-20); BUN (Urea Nitrogen) 7 mg/dL (9.8-20.1); Bilirubin, Total 1.1 mg/dL (0.2-1.2); CK (CPK) 105 U/L (29-168); Calc. Creatinine Clearance 0 mL/min (70-130); Calcium 9.4 mg/dL (7.8-10.44); Carbon Dioxide 23 mmol/L (23-31); Chloride 102 mmol/L (98-107); Estimated GFR-MDRD Greater than 90; Globulin 2.6 g/dL (2.4-3.5); Glucose 103 mg/dL (83-110); Lipase 25 U/L (8-78); Potassium 3.6 mmol/L (3.5-5.1); Protein, Total 6.5 g/dL (6.0-8.3); Sodium 133 mmol/L (136-145)
[2019-02-26 09:03] LABS: Bilirubin Negative (Negative); Blood, Urine Negative (Negative); Clarity CLEAR (Clear); Glucose, Urine (Dipstick) Negative (Negative); Leukocyte Negative (Negative); Nitrite Negative (Negative); Protein, Urine (Dipstick) Negative (Neg-Trace); Specific Gravity, Urine 1.009 (1.002-1.036); Urobilinogen 0.2 mg/dL (0.2-1.0); pH, Urine 8.5 (5.0-9.0)
--- NOTE | 2019-03-01 15:29 | EKG ---
Test Reason : Blood Pressure : / mmHG Vent. Rate : 071 BPM Atrial Rate : 071 BPM P-R Int : 156 ms QRS Dur : 082 ms QT Int : 396 ms P-R-T Axes : 025 -20 041 degrees QTc Int : 430 ms Normal sinus rhythm Minimal voltage criteria for LVH, may be normal variant Borderline ECG Similar to 02/13/2019 Confirmed by SANA LEÓN MD ([id number]), editorial writer FREDI KEY ([id number]) on 03/01/2019 3:29:15 PM Referred By: Confirmed By:SANA LEÓN MD
== END 2019-02-26 13:13 | disposition home or self-care (01) ==
LOC: ERS 07:35
DX: R19.7 Diarrhea, unspecified (principal); E03.9 Hypothyroidism, unspecified; E78.5 Hyperlipidemia, unspecified; I10 Essential (primary) hypertension; F41.9 Anxiety disorder, unspecified; F32.9 Major depressive disorder, single episode, unspecified; Z79.899 Other long term (current) drug therapy; Z79.82 Long term (current) use of aspirin
CPT/HCPCS: 36415; 51701; 71045; 80053; 81003; 82550; 83690; 84484; 85025; 93005; 96360; A4353

== ENCOUNTER 2019-03-08 08:07 | Emergency (ER) | payer MEDICARE, MEDICAID ==
--- NOTE | 2019-03-08 09:50 | ULT ---
EXAM: US Venous Doppler Rt Unilat PROVIDED CLINICAL HISTORY: Right forearm pain and area of bruising. COMPARISON: None FINDINGS: Grayscale, color-flow, Doppler evaluation, and spectral analysis of the right upper extremity venous structures is performed with 2-D imaging. There is normal lumen compressibility and flow seen within the right internal jugular, axillary, and brachial veins with normal flow seen in the right flower bclavian vein. Normal lumen compressibility and flow is present within the right upper extremity basilic and cephalic veins. Flow is demonstrated in the limited visualized right ulnar and radial vei ns. Sonographic evaluation was performed in the region of the patient's area of ecchymosis in the right f orearm. No fluid collection or findings to suggest a hematoma are visualized. IMPRESSION: 1. No evidence of a DVT in the visualized deep venous structures right upper extremity. 2. No fluid collection or findings to suggest hematoma involving the subcutaneous soft tissues right forearm in the region of the patient's area of ecchymosis.
== END 2019-03-08 10:04 | disposition home or self-care (01) ==
LOC: ERS 08:07
DX: I80.8 Phlebitis and thrombophlebitis of other sites (principal); E03.9 Hypothyroidism, unspecified; E78.5 Hyperlipidemia, unspecified; I10 Essential (primary) hypertension; F41.9 Anxiety disorder, unspecified; F32.9 Major depressive disorder, single episode, unspecified

== ENCOUNTER 2019-03-09 06:20 | Emergency (ER) | payer MEDICARE, MEDICAID ==
[2019-03-09 06:54] LABS: #Lymphocytes 1.3 thou/uL (1.20-3.40); #Monocytes 0.6 thou/uL (0.11-0.59); #Neutrophils 3.7 thou/uL (1.40-6.50); %Basophils 0.4 % (0.0-1.0); %Eosinophils 0.5 % (0.0-10.0); %Lymphocytes 22.2 % (21.0-51.0); %Monocytes 11.2 % (0.0-10.0); %Neutrophils 65.6 % (42.0-75.0); Hemoglobin 14.5 g/dL (12.0-16.0); Mean Corpuscular HGB CONC 33.7 g/dL (32.0-36.0); Mean Corpuscular Hemoglobin 30.6 pg (27.0-31.0); Mean Corpuscular Volume 90.9 fL (78.0-98.0); Mean Platelet Volume 7.2 fL (7.4-10.4); Platelet Count 212 thou/uL (130-400); RBC Distribution Width 11.7 % (11.5-14.5); Red Blood Cell (RBC) Count 4.73 mill/uL (4.20-5.40); White Blood Cell (WBC) Count 5.7 thou/uL (4.8-10.8)
[2019-03-09 07:11] LABS: ALT (SGPT) 25 U/L (8-55); AST (SGOT) 20 U/L (5-34); Albumin 4.1 g/dL (3.4-4.8); Alkaline Phosphatase 61 U/L (40-150); Anion Gap 17 mmol/L (10-20); BUN (Urea Nitrogen) 10 mg/dL (9.8-20.1); Bilirubin, Total 1.2 mg/dL (0.2-1.2); Calc. Creatinine Clearance 0 mL/min (70-130); Calcium 10.1 mg/dL (7.8-10.44); Carbon Dioxide 19 mmol/L (23-31); Chloride 103 mmol/L (98-107); Estimated GFR-MDRD 86; Globulin 2.8 g/dL (2.4-3.5); Glucose 110 mg/dL (83-110); Potassium 3.8 mmol/L (3.5-5.1); Protein, Total 6.9 g/dL (6.0-8.3); Sodium 135 mmol/L (136-145)
--- NOTE | 2019-03-09 07:38 | RAD ---
EXAM: Portable chest PROVIDED CLINICAL HISTORY: Dyspnea COMPARISON: 02/26/2019 FINDINGS: Cardiac and mediastinal silhouette is stable in appearance. No focal consolidation, pleural fluid or pneumothorax evident. IMPRESSION: No evidence for an acute cardiopulmonary process.
== END 2019-03-09 08:07 | disposition home or self-care (01) ==
LOC: ERS 06:20
DX: F41.9 Anxiety disorder, unspecified (principal); F32.9 Major depressive disorder, single episode, unspecified; E03.9 Hypothyroidism, unspecified; E78.5 Hyperlipidemia, unspecified; I10 Essential (primary) hypertension; Z79.899 Other long term (current) drug therapy
CPT/HCPCS: 36415; 71045; 80053; 83880; 84484; 85025; 93005

== ENCOUNTER 2019-03-21 06:57 | Emergency (ER) | payer MEDICARE, MEDICAID ==
--- NOTE | 2019-03-21 08:01 | RAD ---
EXAM: Chest one view: HISTORY: Chest pain shortness of breath anxiety COMPARISON: 03/09/2019 FINDINGS: Heart size: Within normal limits. Lungs: Clear of acute process. No evidence for pneumonia, pleural effusion, acute edema, or pneumothorax, or other significant acute process. IMPRESSION: No significant acute intrathoracic disease. Stable chest.
== END 2019-03-21 08:14 | disposition home or self-care (01) ==
LOC: ERS 06:57
DX: F41.9 Anxiety disorder, unspecified (principal); R07.9 Chest pain, unspecified; E03.9 Hypothyroidism, unspecified; E78.5 Hyperlipidemia, unspecified; F32.9 Major depressive disorder, single episode, unspecified; Z79.899 Other long term (current) drug therapy
CPT/HCPCS: 36415; 71045; 84484; 93005

== ENCOUNTER 2019-06-28 09:10 | Emergency (ER) | payer MEDICARE, MEDICAID | END 2019-06-28 09:59 | disposition home or self-care (01) | LOC: ERS 09:10 | DX: H11.32 Conjunctival hemorrhage, left eye (principal); E78.5 Hyperlipidemia, unspecified; E03.9 Hypothyroidism, unspecified; E78.00 Pure hypercholesterolemia, unspecified; F41.9 Anxiety disorder, unspecified; F32.9 Major depressive disorder, single episode, unspecified | CPT/HCPCS: 99281 ==

== ENCOUNTER 2019-07-13 07:17 | Observation (INO) | payer MEDICARE, MEDICAID ==
[2019-07-13 07:58] LABS: #Lymphocytes 0.9 thou/uL (1.20-3.40); #Monocytes 0.4 thou/uL (0.11-0.59); #Neutrophils 3.4 thou/uL (1.40-6.50); %Basophils 0.1 % (0.0-1.0); %Eosinophils 0.8 % (0.0-10.0); %Lymphocytes 18.3 % (21.0-51.0); %Monocytes 9.3 % (0.0-10.0); %Neutrophils 71.5 % (42.0-75.0); Hemoglobin 13.3 g/dL (12.0-16.0); Mean Corpuscular HGB CONC 33.4 g/dL (32.0-36.0); Mean Corpuscular Hemoglobin 30.6 pg (27.0-31.0); Mean Corpuscular Volume 91.5 fL (78.0-98.0); Mean Platelet Volume 7.4 fL (7.4-10.4); Platelet Count 219 thou/uL (130-400); RBC Distribution Width 11.5 % (11.5-14.5); Red Blood Cell (RBC) Count 4.34 mill/uL (4.20-5.40); White Blood Cell (WBC) Count 4.7 thou/uL (4.8-10.8)
[2019-07-13 08:14] LABS: ALT (SGPT) 16 U/L (8-55); AST (SGOT) 21 U/L (5-34); Albumin 3.9 g/dL (3.4-4.8); Alkaline Phosphatase 59 U/L (40-110); Anion Gap 14 mmol/L (10-20); BUN (Urea Nitrogen) 8 mg/dL (9.8-20.1); Bilirubin, Total 1.1 mg/dL (0.2-1.2); Calc. Creatinine Clearance 0 mL/min (70-130); Calcium 9.5 mg/dL (7.8-10.44); Carbon Dioxide 23 mmol/L (23-31); Chloride 104 mmol/L (98-107); Estimated GFR-MDRD 85; Globulin 3.3 g/dL (2.4-3.5); Glucose 95 mg/dL (83-110); Lipase 24 U/L (8-78); Potassium 4.6 mmol/L (3.5-5.1); Protein, Total 7.2 g/dL (6.0-8.3); Sodium 136 mmol/L (136-145)
[2019-07-13] MEDS ORDERED: Meclizine HCl 25 MG TAB PO PRN (09:00)
[2019-07-13] MEDS ORDERED: Polyethylene Glycol 3350 17 GM Packet PO PRN (09:00)
[2019-07-13] MEDS ORDERED: Aspirin Chewable 81 MG TAB ONE (09:03)
[2019-07-13] MEDS ORDERED: Ondansetron PF 4 MG/2 ML Vial IVP PRN (09:06)
[2019-07-13] MEDS ORDERED: Calcium Carbonate 500 MG ChewTAB PO PRN (09:06)
[2019-07-13] MEDS ORDERED: Acetaminophen 325 MG TAB PO PRN (09:06)
[2019-07-13] MEDS ORDERED: Ondansetron ODT 4 MG TAB PO PRN (09:06)
[2019-07-13] MEDS ORDERED: Melatonin 3 MG TAB PO PRN (09:08)
[2019-07-13] MEDS ORDERED: Benzonatate 100 MG CAP PO PRN (09:08)
[2019-07-13] MEDS ORDERED: diphenhydrAMINE 25 MG CAP PO PRN (09:08)
[2019-07-13] MEDS ORDERED: Labetalol HCl 100 MG/20 ML VIAL SLOW IVP PRN (09:08)
[2019-07-13] MEDS ORDERED: Docusate 100 MG CAP PO PRN (09:08)
--- NOTE | 2019-07-13 09:53 | RAD ---
PORTABLE CHEST 1 VIEW: Date: 07/13/19 Time: 0745 hours HISTORY: Dyspnea. FINDINGS: Comparison made with exam of 03/21/19. The heart size is enlarged. The aorta is tortuous. The lungs are expanded without lobar consolidation , pneumothoraces, selina pulmonary edema, or pleural effusions. IMPRESSION: No acute process. POS: [facility]
[2019-07-13 12:26] VITALS: BMI 28.4
--- NOTE | 2019-07-13 14:29 | PDOC.HHP ---
Hospitalist HPI - History of Present Illness Chest pain and shortness of breath History of Present Illness: 73-year-old female with past medical history of hypertension, hypothyroidism, hyperlipidemia, and mood disorder presents with chest pain and shortness of breath. Patient denies it history of cardiac events and states that she has never had cardiac catheterization or stent placement. Patient denies history of myocardial infarction. I did recommend to the emergency department that with a negative stress test roughly 5 months ago the patient may be seen electively in the outpatient setting however the ER doctor stated that with an elevated heart score the patient needed to be ruled out for ACS. Patient admitted to medical unit with telemetry, cardiology consultation requested for further recommendations. The emergency department states that the patient is short of breath however the patient is saturating 97% on room air. Patient's chest x-ray is without acute cardiothoracic process. Patient's labs are normal. Vital signs normal, afebrile. Patient is [facility] [facility] of [facility]. Patient is very hard of hearing. Patient has no acute complaints at the time I interviewed her and just finished her lunch without problems. Will monitor the patient and observation status pending cardiology consultation for further recommendations. Hospitalist ROS - Review of Systems All other systems reviewed; all pertinent +/- noted in HPI/Subj Hospitalist History - Past Medical History Source: patient, old records Cardiac: reports: HTN, Hyperlipidemia Psych: reports: Other (mood disorder) Musculoskeletal: reports: Osteoarthritis - Family History Family History: reports: hyperlipidemia, hypertension - Social History Smoking Status: Unknown if ever smoked Alcohol: reports: None Drugs: reports: none Living Situation: [facility] Domestic Violence: Negative - Exam General Appearance: NAD, awake alert Eye: PERRL, anicteric sclera ENT: normocephalic atraumatic, no oropharyngeal lesions, moist mucosa ENT - other findings: Hard of hearing Neck: supple, symmetric, no lymphadenopathy Heart: no murmur, no gallops, no rubs Respiratory: CTAB, no wheezes, no rales, no ronchi Gastrointestinal: soft, non-tender, non-distended, normal bowel sounds, no guarding, no rigidity Extremities: no edema Skin: no lesions, no rashes Neurological: cranial nerve grossly intact, normal sensation to touch, no focal deficits Musculoskeletal: generalized weakness Psychiatric: normal affect, A&O x 3 Hospitalist Results - Labs Result Diagrams: 07/13/19 07:35 07/13/19 07:35 Lab results: WBC 4.7 thou/uL (4.8-10.8) L 07/13/19 07:35 Hgb 13.3 g/dL (12.0-16.0) 07/13/19 07:35 Hct 39.7 % (36.0-47.0) 07/13/19 07:35 MCV 91.5 fL (78.0-98.0) 07/13/19 07:35 Plt Count 219 thou/uL (130-400) 07/13/19 07:35 Neutrophils % 71.5 % (42.0-75.0) 07/13/19 07:35 Sodium 136 mmol/L (136-145) 07/13/19 07:35 Potassium 4.6 mmol/L (3.5-5.1) 07/13/19 07:35 Chloride 104 mmol/L (98-107) 07/13/19 07:35 Carbon Dioxide 23 mmol/L (23-31) 07/13/19 07:35 BUN 8 mg/dL (9.8-20.1) L 07/13/19 07:35 Creatinine 0.68 mg/dL (0.6-1.1) 07/13/19 07:35 Glucose 95 mg/dL (83-110) 07/13/19 07:35 Calcium 9.5 mg/dL (7.8-10.44) 07/13/19 07:35 Total Bilirubin 1.1 mg/dL (0.2-1.2) 07/13/19 07:35 AST 21 U/L (5-34) 07/13/19 07:35 ALT 16 U/L (8-55) 07/13/19 07:35 Alkaline Phosphatase 59 U/L (40-110) 07/13/19 07:35 Troponin I 0.020 ng/mL (< 0.028) 07/13/19 13:38 B-Natriuretic Peptide 34.7 pg/mL (0-100) 07/13/19 07:35 Serum Total Protein 7.2 g/dL (6.0-8.3) 07/13/19 07:35 Albumin 3.9 g/dL (3.4-4.8) 07/13/19 07:35 Lipase 24 U/L (8-78) 07/13/19 07:35 - Radiology Interpretation Chest x-ray Status: image reviewed by me Hospitalist H&P A/P - Problem (1) Chest pain Code(s): R07.9 - CHEST PAIN, UNSPECIFIED Status: Acute Qualifiers: Chest pain type: unspecified Qualified Code(s): R07.9 - Chest pain, unspecified (2) Dyslipidemia Code(s): E78.5 - HYPERLIPIDEMIA, UNSPECIFIED Status: Chronic (3) Hypertension Code(s): I10 - ESSENTIAL (PRIMARY) HYPERTENSION Status: Chronic Qualifiers: (4) Hypothyroidism Code(s): E03.9 - HYPOTHYROIDISM, UNSPECIFIED Status: Chronic Qualifiers: - Plan Plan: Plan: admit to medical unit with telemetry under observation cardiology consultation, recommendations appreciated negative stress test five months ago recommended outpatient follow-up, with elevated heart score emergency department physician recommended ACS rule out continuous telemetry to monitor for arrhythmia patient subjective shortness of breath is not backed up by objective data, she is saturating 97% on room air, her chest x-ray is without acute cardiothoracic process, white blood cell count is normal. No indication for antibiotics/ steroids at this time breathing treatments as needed for shortness of breath continue other home medications as able
[2019-07-13] MEDS: Famotidine 20 MG TAB PO SCH (20:07)
[2019-07-13] MEDS ORDERED: Atorvastatin Calcium 10 MG TAB PO SCH (21:00)
[2019-07-13] MEDS ORDERED: Polyethylene Glycol 3350 17 GM Packet PO SCH (21:00)
[2019-07-14 06:03] LABS: #Eosinphils 0.1 thou/uL (0.0-0.7); #Lymphocytes 1.1 thou/uL (1.20-3.40); #Monocytes 0.6 thou/uL (0.11-0.59); #Neutrophils 3.5 thou/uL (1.40-6.50); %Basophils 0.2 % (0.0-1.0); %Eosinophils 1.2 % (0.0-10.0); %Lymphocytes 20.1 % (21.0-51.0); %Monocytes 11.1 % (0.0-10.0); %Neutrophils 67.4 % (42.0-75.0); Hemoglobin 13.4 g/dL (12.0-16.0); Mean Corpuscular HGB CONC 32.9 g/dL (32.0-36.0); Mean Corpuscular Hemoglobin 29.8 pg (27.0-31.0); Mean Corpuscular Volume 90.4 fL (78.0-98.0); Mean Platelet Volume 6.9 fL (7.4-10.4); Platelet Count 222 thou/uL (130-400); RBC Distribution Width 11.6 % (11.5-14.5); White Blood Cell (WBC) Count 5.2 thou/uL (4.8-10.8)
[2019-07-14 06:18] LABS: Anion Gap 11 mmol/L (10-20); BUN (Urea Nitrogen) 11 mg/dL (9.8-20.1); Calc. Creatinine Clearance 92 mL/min (70-130); Calcium 9.7 mg/dL (7.8-10.44); Carbon Dioxide 25 mmol/L (23-31); Chloride 103 mmol/L (98-107); Estimated GFR-MDRD 88; Glucose 98 mg/dL (83-110); Potassium 3.9 mmol/L (3.5-5.1); Sodium 135 mmol/L (136-145)
[2019-07-14] MEDS ORDERED: Levothyroxine Sodium 88 MCG TAB PO SCH (07:30)
[2019-07-14 08:26] VITALS: BP 156/78; TEMP 97.7
[2019-07-14] MEDS ORDERED: Aspirin Chewable 81 MG TAB PO SCH (09:00)
[2019-07-14] MEDS ORDERED: Lisinopril 20 MG TAB PO SCH (09:00)
[2019-07-14] MEDS ORDERED: Lisinopril 10 MG TAB PO SCH (09:00)
[2019-07-14] MEDS: Famotidine 20 MG TAB PO SCH (09:31)
[2019-07-14] MEDS ORDERED: risperiDONE 1 MG TAB PO SCH (21:00)
--- NOTE | 2019-07-15 04:10 | DIS ---
DATE OF ADMISSION: 07/13/2019 DATE OF DISCHARGE: 07/14/2019 CONDITION ON DISCHARGE: Stable. DISCHARGE INSTRUCTIONS: 1. The patient is recommended to follow up with primary care physician in the next 5 to 7 days. 2. The patient is recommended to follow up with Cardiology in the next 1 to 2 weeks. 3. The patient is recommended to take all medications as directed, to be re-evaluated by primary care physician and Cardiology in the outpatient clinic in the next 1 to 2 weeks. 4. The patient is recommended to return to acute care hospital immediately if signs or symptoms return, worsen, or any other new symptoms occur. REASON FOR HOSPITALIZATION: Chest pain. SIGNIFICANT FINDINGS: The patient had serial cardiac enzymes, which were found to be negative, the patient with a negative nuclear medicine stress test five months ago, was recommended no further workup by Cardiology. DISCHARGE MEDICATIONS: 1. Meclizine 25 mg one tablet p.o. t.i.d. 2. Aspirin 81 mg one tablet p.o. daily. 3. Simvastatin 20 mg one tablet p.o. at bedtime. 4. Levothyroxine 88 mcg one tablet p.o. daily. 5. Risperidone 1 mg one tablet p.o. daily. 6. MiraLAX 1 pack p.o. daily. 7. Lisinopril 10 mg one tablet p.o. daily. 8. Docusate 100 mg one tablet p.o. b.i.d. TIME SPENT: Greater than 33 minutes spent coordinating care and discharge process for this patient. Job ID: [id number]
== END 2019-07-14 10:15 | disposition home or self-care (01) ==
LOC: ERS 07:17 → 2SW 09:05
PROVIDERS: ADMIT Internal Medicine; ATTEND Internal Medicine
DX: R07.89 Other chest pain (principal); R06.02 Shortness of breath; I10 Essential (primary) hypertension; E03.9 Hypothyroidism, unspecified; E78.5 Hyperlipidemia, unspecified; E78.00 Pure hypercholesterolemia, unspecified; F39 Unspecified mood [affective] disorder; M19.90 Unspecified osteoarthritis, unspecified site; Z79.899 Other long term (current) drug therapy; Z88.1 Allergy status to other antibiotic agents; Z88.8 Allergy status to other drugs, medicaments and biological substances; Z91.041 Radiographic dye allergy status
CPT/HCPCS: 71045; 80048; 80053; 83690; 83880; 84484 ×2; 85025 ×2; 93005; 97139; 99285; G0378 ×2; 36415

== ENCOUNTER 2019-07-18 09:29 | Emergency (ER) | payer MEDICARE, MEDICAID ==
[2019-07-18 10:50] LABS: Bilirubin Negative (Negative); Blood, Urine Negative (Negative); Clarity Clear (Clear); Glucose, Urine (Dipstick) Normal (Negative); Leukocyte Negative Leu/uL (Negative); Nitrite Negative (Negative); Protein, Urine (Dipstick) Negative (Neg-Trace); Urobilinogen Normal mg/dL (Less than 2)
[2019-07-18] MEDS ORDERED: Meclizine HCl 25 MG TAB ONE (11:01)
== END 2019-07-18 11:55 | disposition home or self-care (01) ==
LOC: ERS 09:29
DX: R53.1 Weakness (principal); E03.9 Hypothyroidism, unspecified; E78.5 Hyperlipidemia, unspecified; I10 Essential (primary) hypertension; E78.00 Pure hypercholesterolemia, unspecified; F41.9 Anxiety disorder, unspecified; F32.9 Major depressive disorder, single episode, unspecified; Z85.42 Personal history of malignant neoplasm of other parts of uterus; Z79.899 Other long term (current) drug therapy
CPT/HCPCS: 81003; 93005; J8597

== ENCOUNTER 2019-07-30 07:57 | Emergency (ER) | payer MEDICARE, MEDICAID ==
--- NOTE | 2019-07-30 08:31 | RAD ---
XR Chest 1 View Portable HISTORY: Difficulty breathing, chest pain COMPARISON: 07/13/2019 FINDINGS: The heart size is enlarged. The aorta is tortuous. No selina pulmonary edema is seen. The oj ngs are well expanded without focal areas of consolidation, pneumothorax or pleural effusions. IMPRESSION: No radiographic evidence of acute cardiopulmonary process.
[2019-07-30 08:52] LABS: #Lymphocytes 0.9 thou/uL (1.20-3.40); #Monocytes 0.7 thou/uL (0.11-0.59); #Neutrophils 5.6 thou/uL (1.40-6.50); %Basophils 0.4 % (0.0-1.0); %Eosinophils 0.3 % (0.0-10.0); %Lymphocytes 12.5 % (21.0-51.0); %Neutrophils 76.8 % (42.0-75.0); Hemoglobin 14.2 g/dL (12.0-16.0); Mean Corpuscular HGB CONC 33.9 g/dL (32.0-36.0); Mean Corpuscular Hemoglobin 30.6 pg (27.0-31.0); Mean Corpuscular Volume 90.5 fL (78.0-98.0); Platelet Count 213 thou/uL (130-400); RBC Distribution Width 11.6 % (11.5-14.5); Red Blood Cell (RBC) Count 4.64 mill/uL (4.20-5.40); White Blood Cell (WBC) Count 7.3 thou/uL (4.8-10.8)
[2019-07-30 09:09] LABS: ALT (SGPT) 19 U/L (8-55); AST (SGOT) 20 U/L (5-34); Albumin 4.3 g/dL (3.4-4.8); Alkaline Phosphatase 68 U/L (40-110); Anion Gap 16 mmol/L (10-20); BUN (Urea Nitrogen) 10 mg/dL (9.8-20.1); Bilirubin, Total 1.6 mg/dL (0.2-1.2); Calc. Creatinine Clearance 0 mL/min (70-130); Calcium 9.7 mg/dL (7.8-10.44); Carbon Dioxide 22 mmol/L (23-31); Chloride 103 mmol/L (98-107); Estimated GFR-MDRD 86; Globulin 2.6 g/dL (2.4-3.5); Glucose 86 mg/dL (83-110); Potassium 4.4 mmol/L (3.5-5.1); Protein, Total 6.9 g/dL (6.0-8.3); Sodium 137 mmol/L (136-145)
== END 2019-07-30 11:04 | disposition home or self-care (01) ==
LOC: ERS 07:57
DX: R06.00 Dyspnea, unspecified (principal); E03.9 Hypothyroidism, unspecified; E78.5 Hyperlipidemia, unspecified; I10 Essential (primary) hypertension; E78.00 Pure hypercholesterolemia, unspecified; F41.9 Anxiety disorder, unspecified; F32.9 Major depressive disorder, single episode, unspecified; Z79.899 Other long term (current) drug therapy
CPT/HCPCS: 36415; 71045; 80053; 84443; 84484; 85025; 93005

== ENCOUNTER 2019-08-06 08:51 | Emergency (ER) | payer MEDICARE, MEDICAID ==
[2019-08-06] MEDS ORDERED: Aspirin Chewable 81 MG TAB ONE (09:15)
[2019-08-06 09:28] LABS: #Monocytes 0.5 thou/uL (0.11-0.59); %Basophils 0.7 % (0.0-1.0); %Eosinophils 0.5 % (0.0-10.0); %Lymphocytes 17.2 % (21.0-51.0); %Monocytes 9.4 % (0.0-10.0); %Neutrophils 72.2 % (42.0-75.0); Hemoglobin 14.6 g/dL (12.0-16.0); Mean Corpuscular HGB CONC 34.3 g/dL (32.0-36.0); Mean Corpuscular Hemoglobin 30.5 pg (27.0-31.0); Mean Corpuscular Volume 88.9 fL (78.0-98.0); Mean Platelet Volume 7.2 fL (7.4-10.4); Platelet Count 234 thou/uL (130-400); RBC Distribution Width 11.5 % (11.5-14.5); Red Blood Cell (RBC) Count 4.79 mill/uL (4.20-5.40); White Blood Cell (WBC) Count 5.6 thou/uL (4.8-10.8)
--- NOTE | 2019-08-06 09:35 | RAD ---
Exam: Chest one view HISTORY:Short of breath Comparison: 07/30/2019 FINDINGS: Lungs: No masses or consolidation. Cardiac silhouette:Accentuated by technique Pulmonary vessels: Normal Pleural Spaces: Clear Pneumothorax: None Osseous abnormalities: None of acuity. IMPRESSION: No focal consolidation.
[2019-08-06 09:53] LABS: ALT (SGPT) 19 U/L (8-55); AST (SGOT) 15 U/L (5-34); Albumin 4.1 g/dL (3.4-4.8); Alkaline Phosphatase 63 U/L (40-110); Anion Gap 14 mmol/L (10-20); BUN (Urea Nitrogen) 9 mg/dL (9.8-20.1); Bilirubin, Total 1.4 mg/dL (0.2-1.2); Calc. Creatinine Clearance 0 mL/min (70-130); Calcium 9.8 mg/dL (7.8-10.44); Carbon Dioxide 20 mmol/L (23-31); Chloride 103 mmol/L (98-107); Estimated GFR-MDRD 85; Globulin 2.9 g/dL (2.4-3.5); Glucose 104 mg/dL (83-110); Sodium 133 mmol/L (136-145)
[2019-08-06 10:23] LABS: Bacteria/HPF None Seen HPF (None Seen); Bilirubin Negative (Negative); Blood, Urine Negative (Negative); Clarity Clear (Clear); Glucose, Urine (Dipstick) Normal (Negative); Leukocyte Negative Leu/uL (Negative); Nitrite Negative (Negative); Protein, Urine (Dipstick) Negative (Neg-Trace); RBC/HPF None Seen HPF (0-3); Squamous Epithelial 0-3 HPF (0-3); Urobilinogen Normal mg/dL (Less than 2); WBC/HPF 0-3 HPF (0-3)
[2019-08-06] MEDS ORDERED: Aspirin 325 MG TAB ONE (10:48)
== END 2019-08-06 12:04 | disposition home or self-care (01) ==
LOC: ERS 08:51
DX: R06.02 Shortness of breath (principal); R07.89 Other chest pain; I10 Essential (primary) hypertension; E03.9 Hypothyroidism, unspecified; E78.5 Hyperlipidemia, unspecified; Z79.899 Other long term (current) drug therapy
CPT/HCPCS: 71045; 80053; 81001; 84443; 84484; 85025; 87804; 93005

== ENCOUNTER 2019-08-16 08:55 | Emergency (ER) | payer MEDICARE, MEDICAID ==
[2019-08-16 09:46] LABS: #Lymphocytes 0.9 thou/uL (1.20-3.40); #Monocytes 0.5 thou/uL (0.11-0.59); #Neutrophils 3.7 thou/uL (1.40-6.50); %Basophils 0.5 % (0.0-1.0); %Eosinophils 0.5 % (0.0-10.0); %Lymphocytes 18.4 % (21.0-51.0); %Neutrophils 71.7 % (42.0-75.0); Hemoglobin 14.8 g/dL (12.0-16.0); Mean Corpuscular HGB CONC 34.4 g/dL (32.0-36.0); Mean Corpuscular Hemoglobin 30.9 pg (27.0-31.0); Mean Corpuscular Volume 89.7 fL (78.0-98.0); Mean Platelet Volume 7.7 fL (7.4-10.4); Platelet Count 226 thou/uL (130-400); RBC Distribution Width 11.6 % (11.5-14.5); Red Blood Cell (RBC) Count 4.78 mill/uL (4.20-5.40); White Blood Cell (WBC) Count 5.1 thou/uL (4.8-10.8)
[2019-08-16 10:07] LABS: ALT (SGPT) 22 U/L (8-55); AST (SGOT) 14 U/L (5-34); Albumin 4.1 g/dL (3.4-4.8); Alkaline Phosphatase 59 U/L (40-110); Anion Gap 12 mmol/L (10-20); BUN (Urea Nitrogen) 10 mg/dL (9.8-20.1); Bilirubin, Total 1.5 mg/dL (0.2-1.2); Calc. Creatinine Clearance 0 mL/min (70-130); Calcium 9.7 mg/dL (7.8-10.44); Carbon Dioxide 20 mmol/L (23-31); Chloride 106 mmol/L (98-107); Estimated GFR-MDRD 88; Globulin 2.6 g/dL (2.4-3.5); Glucose 97 mg/dL (83-110); Potassium 3.6 mmol/L (3.5-5.1); Protein, Total 6.7 g/dL (6.0-8.3); Sodium 134 mmol/L (136-145)
[2019-08-16 10:08] LABS: Bilirubin Negative (Negative); Blood, Urine Negative (Negative); Clarity Clear (Clear); Glucose, Urine (Dipstick) Normal (Negative); Leukocyte Negative Leu/uL (Negative); Nitrite Negative (Negative); Protein, Urine (Dipstick) Negative (Neg-Trace); Urobilinogen Normal mg/dL (Less than 2)
[2019-08-16] MEDS ORDERED: Lorazepam 1 MG TAB ONE (10:26)
--- NOTE | 2019-08-16 10:44 | RAD ---
CHEST 1 VIEW: INDICATION: Dyspnea. COMPARISON: Prior exam dated 08/06/2019. FINDINGS: Chronic lung changes and mild cardiomegaly are stable. No acute airspace opacity, pleural effusion, or pneumothorax is evident. No acute osseous abnormality is evident. IMPRESSION: No acute cardiopulmonary abnormality. Stable cardiomegaly and chronic lung change. POS: CET
[2019-08-16 13:17] LABS: Troponin I 0.019 ng/mL (< 0.028)
== END 2019-08-16 14:44 | disposition home or self-care (01) ==
LOC: ERS 08:55
DX: R06.02 Shortness of breath (principal); E03.9 Hypothyroidism, unspecified; I10 Essential (primary) hypertension; F41.9 Anxiety disorder, unspecified
CPT/HCPCS: 36415; 51701; 71045; 80053; 81003; 83880; 84484; 85025; 93005; A4353

== ENCOUNTER 2019-08-22 08:50 | Observation (INO) | payer MEDICARE, MEDICAID ==
[2019-08-22 10:01] LABS: #Basophils 0.1 thou/uL (0.0-0.2); #Lymphocytes 1.1 thou/uL (1.20-3.40); #Monocytes 0.6 thou/uL (0.11-0.59); #Neutrophils 4.3 thou/uL (1.40-6.50); %Basophils 0.9 % (0.0-1.0); %Eosinophils 0.4 % (0.0-10.0); %Lymphocytes 17.9 % (21.0-51.0); %Monocytes 9.3 % (0.0-10.0); %Neutrophils 71.5 % (42.0-75.0); Hemoglobin 15.2 g/dL (12.0-16.0); Mean Corpuscular HGB CONC 34.4 g/dL (32.0-36.0); Mean Corpuscular Hemoglobin 30.9 pg (27.0-31.0); Mean Corpuscular Volume 89.8 fL (78.0-98.0); Mean Platelet Volume 8.3 fL (7.4-10.4); Platelet Count 231 thou/uL (130-400); RBC Distribution Width 11.8 % (11.5-14.5); Red Blood Cell (RBC) Count 4.91 mill/uL (4.20-5.40)
[2019-08-22 10:09] LABS: Bilirubin Negative (Negative); Blood, Urine Negative (Negative); Clarity Clear (Clear); Glucose, Urine (Dipstick) Normal (Negative); Leukocyte Negative Leu/uL (Negative); Nitrite Negative (Negative); Protein, Urine (Dipstick) Negative (Neg-Trace); Urobilinogen Normal mg/dL (Less than 2)
--- NOTE | 2019-08-22 10:15 | RAD ---
PORTABLE CHEST ONE VIEW: 08/22/2019 9:53 a.m. HISTORY: Dizziness. Shortness of breath. COMPARISON: 08/16/2019 FINDINGS: The heart size is borderline. The lungs are expanded without focal areas of consolidation, pneumothor aces, selina pulmonary edema or pleural effusions. IMPRESSION: No acute process. POS: DILIP
[2019-08-22 11:45] LABS: ALT (SGPT) 22 U/L (8-55); AST (SGOT) 19 U/L (5-34); Albumin 4.1 g/dL (3.4-4.8); Alkaline Phosphatase 64 U/L (40-110); Anion Gap 16 mmol/L (10-20); BUN (Urea Nitrogen) 9 mg/dL (9.8-20.1); Bilirubin, Total 1.6 mg/dL (0.2-1.2); Calc. Creatinine Clearance 0 mL/min (70-130); Calcium 9.9 mg/dL (7.8-10.44); Carbon Dioxide 19 mmol/L (23-31); Chloride 104 mmol/L (98-107); Estimated GFR-MDRD 86; Globulin 3.2 g/dL (2.4-3.5); Glucose 88 mg/dL (83-110); Potassium 4.1 mmol/L (3.5-5.1); Protein, Total 7.3 g/dL (6.0-8.3); Sodium 135 mmol/L (136-145)
[2019-08-22] MEDS ORDERED: Ondansetron PF 4 MG/2 ML Vial IVP PRN (13:10)
[2019-08-22] MEDS ORDERED: Ondansetron ODT 4 MG TAB PO PRN (13:10)
[2019-08-22 13:50] LABS: Troponin I Less than 0.010 ng/mL (< 0.028)
--- NOTE | 2019-08-22 14:39 | HP ---
TIME OF ASSESSMENT: 1200 hours. CHIEF COMPLAINT: Chest tightness and dizziness. HISTORY OF PRESENT ILLNESS: Ms. Ramos is a 73-year-old woman, who presents due to dizziness and a near syncopal episode. The patient apparently has had multiple visits with the same complaints. Today, she apparently developed shortness of breath and dizziness at 2 a.m. this morning. She reports having some blurred vision. She states she feels a tightness in her chest. Unable to quantify the severity of the discomfort in her chest. She states she has also been experiencing cramping in both legs. She lives alone, and normally, she is able to walk well on her own with the use of her cane. She states today she felt as if she was going to fall over. She states the dizziness is a spinning type of sensation. She feels nauseated, but denies any vomiting and states she has not had anything to eat. She does feel hungry. She denies any abdominal pain. Denies having any changes with her stools or any urinary symptoms. Denies having any fevers, but at this moment, reports feeling very cold and has chills. Denies having any cough or hemoptysis. She reports having a headache at the temples bilaterally. Denies any loss of vision or speech disturbances. No extremity numbness or weakness. The patient is . The patient was recently seen in the emergency department on August 17, 2019, at which time she had presented with abdominal pain and shortness of breath. She underwent a chest x-ray, which was negative. Troponins, which were negative x2. Urinalysis, which was unremarkable. Other laboratory studies were normal. She was given Ativan and subsequently improved, therefore, felt to have had exacerbation of anxiety that caused her symptoms. At this present time, the patient does appear anxious and states she feels "scared." ED COURSE: In the emergency department, she has undergone laboratory studies, which showed a normal full blood count. CMP was notable for sodium of 134 and her total bilirubin was 1.6. Initial troponin negative. She had a chest x-ray done that was unremarkable. She has been started on IV fluids. An EKG was done showing normal sinus rhythm with a heart rate in the 60s. She underwent a urinalysis, which was unremarkable. Her BNP was normal at 32.5. She has been referred for further workup and management. PAST MEDICAL HISTORY: 1. History of uterine cancer. 2. Hypothyroidism. 3. Hypertension. 4. Anxiety. PAST SURGICAL HISTORY: Hysterectomy. SOCIAL HISTORY: The patient lives at [place] in an apartment by herself. She is able to mobilize with the help of a cane, fairly independent. Denies any tobacco use, alcohol consumption, or illicit drug use. ALLERGIES: Iodine, Metronidazole, Pantoprazole CURRENT MEDICATIONS: 1. Aspirin 2. Levothyroxine 3. Miralax. 4. Simvastatin 5. Risperdal 6. Colace 7. Metoprolol Tartrate PHYSICAL EXAMINATION: GENERAL: The patient appears slightly anxious, but well developed, and in no acute distress. VITAL SIGNS: Temperature 98.6. During my assessment, her pulse continues to fluctuate and got as high as 184 and as well as 51. Respirations 20. O2 saturations 98% on room air. HEENT: Normocephalic and atraumatic. Pupils are equal, round, and reactive to light. Sclerae without icterus. Oropharynx is clear. NECK: Supple. Full range of motion. LUNGS: Clear to auscultation bilaterally. CARDIAC: S1 and S2. No audible murmurs, rubs, or gallops. ABDOMEN: Soft, nontender, and nondistended. Normoactive bowel sounds present. No guarding or rigidity. Negative Munguia sign. EXTREMITIES: Without edema or calf swelling/tenderness. SKIN: Warm and dry. NEUROLOGIC: Alert and oriented x3. Able to follow commands. Slightly hard of hearing. No neuro deficits on exam. INVESTIGATIONS: As mentioned above in HPI. IMPRESSION AND PLAN: Ms. Ramos is a pleasant 73-year-old woman, who presents with multiple complaints including chest tightness, dizziness, nausea, and chills with shortness of breath. She has been referred for management of the following. 1. Near syncope. The patient apparently has had multiple complaints of near syncope in the past. Last echo on file is from August 2014, at which time she had normal left ventricular systolic function with an EF of 55% to 60%. She had trace to mild pulmonic insufficiency and mild tricuspid regurgitation/mild mitral regurgitation. There was grade 1 diastolic dysfunction. We will go ahead and repeat an echo. We will obtain carotid Dopplers and orthostatic blood pressure readings. We will continue gentle IV fluids. Given the tachy-navarro pattern on the monitor during my assessment, a consultation has been placed to Cardiology as this could be the contributing factor to her near syncopal episodes. The patient will remain on continuous cardiac monitoring. We will continue to trend troponins. We will check magnesium. 2. Shortness of breath. We will add a D-dimer. Saturations remain normal. No signs or symptoms of infection. 3. Elevated bilirubin. Total bilirubin of 1.6. We will continue to trend LFTs and we will check direct bilirubin with morning labs. The patient has no abdominal pain. We will add a lipase. 4. Hypothyroidism. We will check TSH level. Resume home medications once verified. 5. Hypertension. Monitor blood pressure and resume home medications once verified. 6. Anxiety. Resume home medications once verified. 7. Gastrointestinal prophylaxis with famotidine. 8. Code status, full. Her surrogate decision maker is her son, Yvan Ramos. The patient's case was discussed with Dr. Samson, who agrees with plan of care as described above. Job ID: [id number] MTDD
[2019-08-22 14:55] VITALS: BMI 25.9
[2019-08-22] MEDS: Sodium Chloride 0.9% 1,000 ML IV SCH (15:10)
[2019-08-22] MEDS ORDERED: Metoprolol Tartrate 25 MG TAB PO SCH (15:30)
--- NOTE | 2019-08-22 16:09 | PRG ---
DATE OF SERVICE: 08/22/2019 REASON FOR CONSULTATION: Intermittent tachycardia. PRIMARY FORDER OPERATOR: Sanjay Brown MD SUBJECTIVE: Ms. Barton is a 73-year-old woman, came to the hospital complaining of some weakness and fatigue. It has been noted here that she has intermittent sinus tachycardia. No chest pain or pressure. OBJECTIVE: VITAL SIGNS: Her blood pressure 125/61, pulse 90 and it is regular, but also on the monitor she has been up to 130 beats per minute. LUNGS: Clear. CARDIAC: Normal S1. Normal S2. ABDOMEN: Soft and nontender. EXTREMITIES: There is no edema. DIAGNOSTIC STUDIES: The patient had a stress test done on February 07, 2019, which was within normal limits with Cardiolite imaging. ASSESSMENT: 1. Hypertension. 2. Paroxysmal sinus tachycardia. 3. Ejection fraction was 48% on previous nuclear medicine imaging. PLAN: Echocardiogram to be done to further evaluate left ventricular function. If that is within normal limits, then the patient can be released home to follow up with Dr. Brown as an outpatient. It is noted there is normal wall motion, no significant wall motion abnormalities, or no ischemia noted on stress testing. Job ID: [id number]
[2019-08-22] MEDS: Metoprolol Tartrate 25 MG TAB PO SCH (19:42)
[2019-08-22] MEDS: Docusate 100 MG CAP PO SCH (20:41)
[2019-08-22] MEDS: Famotidine 20 MG TAB PO SCH (20:41)
[2019-08-22] MEDS ORDERED: Atorvastatin Calcium 10 MG TAB PO SCH (21:00)
[2019-08-22] MEDS ORDERED: Famotidine/PF 20 mg/2ml Vial SLOW IVP SCH (21:00)
[2019-08-22] MEDS ORDERED: risperiDONE 1 MG TAB PO SCH (21:00)
[2019-08-23] MEDS: Sodium Chloride 0.9% 1,000 ML IV SCH (04:55)
[2019-08-23 05:32] LABS: #Basophils 0.1 thou/uL (0.0-0.2); #Eosinphils 0.1 thou/uL (0.0-0.7); #Lymphocytes 1.1 thou/uL (1.20-3.40); #Monocytes 0.6 thou/uL (0.11-0.59); #Neutrophils 3.2 thou/uL (1.40-6.50); %Basophils 1.2 % (0.0-1.0); %Eosinophils 1.1 % (0.0-10.0); %Lymphocytes 22.1 % (21.0-51.0); %Monocytes 11.6 % (0.0-10.0); %Neutrophils 64.1 % (42.0-75.0); Hemoglobin 14.1 g/dL (12.0-16.0); Mean Corpuscular HGB CONC 34.2 g/dL (32.0-36.0); Mean Corpuscular Volume 90.4 fL (78.0-98.0); Mean Platelet Volume 7.7 fL (7.4-10.4); Platelet Count 214 thou/uL (130-400); RBC Distribution Width 11.7 % (11.5-14.5); Red Blood Cell (RBC) Count 4.54 mill/uL (4.20-5.40)
[2019-08-23 05:54] LABS: ALT (SGPT) 24 U/L (8-55); AST (SGOT) 19 U/L (5-34); Albumin 3.8 g/dL (3.4-4.8); Alkaline Phosphatase 60 U/L (40-110); Anion Gap 10 mmol/L (10-20); BUN (Urea Nitrogen) 10 mg/dL (9.8-20.1); Bilirubin, Total 1.3 mg/dL (0.2-1.2); Calc. Creatinine Clearance 81 mL/min (70-130); Calcium 9.2 mg/dL (7.8-10.44); Carbon Dioxide 20 mmol/L (23-31); Chloride 109 mmol/L (98-107); Estimated GFR-MDRD 83; Globulin 2.7 g/dL (2.4-3.5); Glucose 96 mg/dL (83-110); Potassium 3.8 mmol/L (3.5-5.1); Protein, Total 6.5 g/dL (6.0-8.3); Sodium 135 mmol/L (136-145)
[2019-08-23] MEDS ORDERED: Levothyroxine Sodium 88 MCG TAB PO SCH (06:00)
[2019-08-23] MEDS ORDERED: Magnesium Sulfate 2 GM in Sodium Chloride 0.9% 100 ML IVPB SCH (07:15)
[2019-08-23] MEDS ORDERED: Magnesium 2 GM/50 ML 2 GM in Premix Bag 1 BAG IVPB SCH (07:30)
[2019-08-23] MEDS: Famotidine 20 MG TAB PO SCH (08:50)
[2019-08-23] MEDS: Docusate 100 MG CAP PO SCH (08:50)
[2019-08-23] MEDS: Metoprolol Tartrate 25 MG TAB PO SCH (08:50)
[2019-08-23] MEDS ORDERED: Aspirin Chewable 81 MG TAB PO SCH (09:00)
[2019-08-23 12:05] VITALS: BP 131/64; TEMP 98.3
--- NOTE | 2019-08-23 12:16 | PDOC.HOSPP ---
- Subjective Encounter Date: 08/23/19 Encounter Time: 08:30 Subjective: Patient seen and examined for Near syncope. No CP. No new complaints. No overnight events - Objective Vital Signs & Weight: Vital Signs (12 hours) Temp Pulse Resp BP BP Pulse Ox 08/23/19 11:29 98.3 F 56 L 18 131/64 97 08/23/19 07:47 99.4 F 73 20 120/79 98 08/23/19 04:55 97.3 F L 65 18 120/62 99 Weight Weight 156 lb 3 oz I&O: 08/22/19 08/23/19 08/24/19 06:59 06:59 06:59 Intake Total 1167 Output Total 1050 Balance 117 Result Diagrams: 08/23/19 05:02 08/23/19 05:02 EKG Reviewed by me: Yes (Tele SR) Hospitalist ROS - Review of Systems Respiratory: denies: cough, dry, shortness of breath, hemoptysis, SOB with excertion, pleuritic pain, sputum, wheezing, other Cardiovascular: denies: chest pain, palpitations, orthopnea, paroxysmal noc. dyspnea, edema, light headedness, other - Medication Medications: Active Medications Generic Name Dose Route Start Last Admin Trade Name Freq PRN Reason Stop Dose Admin Aspirin 81 mg 08/23/19 09:00 08/23/19 08:50 Aspirin Chewable PO 81 mg DAILY FERNANDA Administration Atorvastatin Calcium 10 mg 08/22/19 21:00 08/22/19 20:41 Lipitor PO 10 mg HS FERNANDA Administration Docusate Sodium 100 mg 08/22/19 21:00 08/23/19 08:50 Colace PO 100 mg BID FERNANDA Administration Famotidine 20 mg 08/22/19 21:00 08/23/19 08:50 Pepcid PO 20 mg BID FERNANDA Administration Sodium Chloride 1,000 mls @ 65 mls/hr 08/22/19 13:15 08/23/19 04:55 Normal Saline 0.9% IV 1,000 mls .[id number] FERNANDA Administration Levothyroxine Sodium 88 mcg 08/23/19 06:00 08/23/19 04:55 Synthroid PO 88 mcg 0600 FERNANDA Administration Metoprolol Tartrate 25 mg 08/22/19 21:00 08/23/19 08:50 Lopressor PO 25 mg BID FERNANDA Administration Risperidone 1 mg 08/22/19 21:00 08/22/19 20:41 Risperidone PO 1 mg HS FERNANDA Administration - Exam General Appearance: NAD Heart: RRR, no gallops, no rubs, normal peripheral pulses Respiratory: CTAB, no wheezes, no rales, no ronchi Gastrointestinal: soft, non-tender, non-distended, normal bowel sounds Extremities: no edema Neurological: normal sensation to touch, no weakness, no focal deficits, no new deficit Psychiatric: normal affect, A&O x 3 Hosp A/P - Plan DVT proph w/SCDs Gen weakness/Near syncope Intermittent sinus tachycardia Hypomagnesemia Abn LFTs - improving Hyponatremia HTN Hypothyroidism Anxiety PLAN: Await Echo Cont low dose BB Replace Magnesium Cont Levothyroxine Cardiology following
--- NOTE | 2019-08-23 16:54 | DIS ---
DATE OF ADMISSION: 08/22/2019 DATE OF DISCHARGE: 08/23/2019 DISCHARGE DISPOSITION: Home. FOLLOWUP: 1. Follow up with primary care physician, Dr. Lomeli, in 1 week. 2. Follow up with primary hydro sprayer operator, Dr. Brown, as scheduled. DISCHARGE MEDICATIONS: Metoprolol 12.5 mg b.i.d. Lisinopril was discontinued. All other home medications were left unchanged. BRIEF HOSPITAL COURSE: The patient is a 73-year-old female, who presented to the emergency room yesterday with dizziness and near syncopal episode. She was found to have significant tachycardia. Her rhythm was sinus. The patient was evaluated by Cardiology. An echocardiogram was obtained that showed ejection fraction 50% to 55%. She has been started on low-dose beta blockers. She has been cleared by Cardiology for discharge. LABORATORY DATA: Significant labs; total bilirubin on admission 1.6, at discharge 1.3. Please note that, the patient has intermittent elevation of LFTs. Sodium 135. D-dimer was negative. IMAGING STUDIES: Chest x-ray was negative for infiltrate. FINAL DIAGNOSES: 1. Near syncope, suspected to be secondary to sinus tachycardia. 2. Generalized weakness, multifactorial. 3. Hypomagnesemia, replaced. 4. Hyponatremia. 5. Abnormal LFTs, improving. 6. Hypothyroidism. 7. Hypertension. 8. Anxiety. PLAN: Plan was discussed with the patient in detail, she stated understanding. Job ID: [id number]
[2019-08-23] MEDS ORDERED: Metoprolol Tartrate 25 MG TAB PO SCH (21:00)
== END 2019-08-23 16:20 | disposition home or self-care (01) ==
LOC: ERS 08:50 → 2SW 14:31
PROVIDERS: ADMIT Internal Medicine; ATTEND Internal Medicine
DX: R55 Syncope and collapse (principal); E87.1 Hypo-osmolality and hyponatremia; E83.42 Hypomagnesemia; R00.0 Tachycardia, unspecified; R94.5 Abnormal results of liver function studies; E03.9 Hypothyroidism, unspecified; I10 Essential (primary) hypertension; F41.9 Anxiety disorder, unspecified; R06.02 Shortness of breath; R53.1 Weakness; Z79.82 Long term (current) use of aspirin; Z79.899 Other long term (current) drug therapy; Z88.1 Allergy status to other antibiotic agents; Z88.8 Allergy status to other drugs, medicaments and biological substances; Z91.041 Radiographic dye allergy status
CPT/HCPCS: 36415; 51701; 71045; 80053; 81003; 82248; 83690; 83735; 83880; 84443; 84484; 85025; 85379; 93005; 93306; 94760; 96361; 96365; G0378; J3475

== ENCOUNTER 2019-08-25 08:36 | Emergency (ER) | payer MEDICARE, MEDICAID ==
--- NOTE | 2019-08-25 11:55 | RAD ---
XR Chest Pa Lat STANDARD History: Dyspnea Comparison: Chest radiograph August 22, 2019 Findings: Lungs are clear. No pneumothorax. No effusion. Cardiac silhouette and mediastinal contours are within normal limits. No acute osseous abnormality. Impression: No acute intrathoracic abnormality.
[2019-08-25 12:23] LABS: #Monocytes 0.3 thou/uL (0.11-0.59); #Neutrophils 7.1 thou/uL (1.40-6.50); %Basophils 0.5 % (0.0-1.0); %Eosinophils 0.3 % (0.0-10.0); %Lymphocytes 11.6 % (21.0-51.0); %Monocytes 3.1 % (0.0-10.0); %Neutrophils 84.5 % (42.0-75.0); Hemoglobin 15.4 g/dL (12.0-16.0); Mean Corpuscular HGB CONC 33.9 g/dL (32.0-36.0); Mean Corpuscular Hemoglobin 30.5 pg (27.0-31.0); Mean Corpuscular Volume 89.9 fL (78.0-98.0); Mean Platelet Volume 7.1 fL (7.4-10.4); Platelet Count 255 thou/uL (130-400); RBC Distribution Width 11.7 % (11.5-14.5); Red Blood Cell (RBC) Count 5.05 mill/uL (4.20-5.40); White Blood Cell (WBC) Count 8.4 thou/uL (4.8-10.8)
[2019-08-25 12:45] LABS: ALT (SGPT) 23 U/L (8-55); AST (SGOT) 15 U/L (5-34); Albumin 4.4 g/dL (3.4-4.8); Alkaline Phosphatase 64 U/L (40-110); Anion Gap 18 mmol/L (10-20); BUN (Urea Nitrogen) 10 mg/dL (9.8-20.1); Bilirubin, Total 1.2 mg/dL (0.2-1.2); CK (CPK) 42 U/L (29-168); Calc. Creatinine Clearance 0 mL/min (70-130); Carbon Dioxide 18 mmol/L (23-31); Chloride 103 mmol/L (98-107); Estimated GFR-MDRD 69; Globulin 2.9 g/dL (2.4-3.5); Glucose 208 mg/dL (83-110); Potassium 3.6 mmol/L (3.5-5.1); Protein, Total 7.3 g/dL (6.0-8.3); Sodium 135 mmol/L (136-145)
== END 2019-08-25 17:40 | disposition home or self-care (01) ==
LOC: ERS 08:36
DX: R06.00 Dyspnea, unspecified (principal); F41.9 Anxiety disorder, unspecified; I10 Essential (primary) hypertension; E03.9 Hypothyroidism, unspecified; Z79.899 Other long term (current) drug therapy
CPT/HCPCS: 36415; 71046; 80053; 82550; 83880; 84484; 85025; 85379; 93005

== ENCOUNTER 2019-09-01 09:20 | Emergency (ER) | payer MEDICARE, MEDICAID ==
[2019-09-01 10:11] LABS: #Lymphocytes 0.9 thou/uL (1.20-3.40); #Monocytes 0.5 thou/uL (0.11-0.59); #Neutrophils 3.7 thou/uL (1.40-6.50); %Basophils 0.5 % (0.0-1.0); %Eosinophils 0.3 % (0.0-10.0); %Lymphocytes 17.9 % (21.0-51.0); %Monocytes 8.9 % (0.0-10.0); %Neutrophils 72.4 % (42.0-75.0); Hemoglobin 14.9 g/dL (12.0-16.0); Mean Corpuscular HGB CONC 34.8 g/dL (32.0-36.0); Mean Corpuscular Hemoglobin 31.1 pg (27.0-31.0); Mean Corpuscular Volume 89.2 fL (78.0-98.0); Mean Platelet Volume 7.4 fL (7.4-10.4); Platelet Count 261 thou/uL (130-400); RBC Distribution Width 11.6 % (11.5-14.5); Red Blood Cell (RBC) Count 4.79 mill/uL (4.20-5.40); White Blood Cell (WBC) Count 5.2 thou/uL (4.8-10.8)
--- NOTE | 2019-09-01 10:19 | RAD ---
ONE VIEW CHEST: HISTORY: Chest pain. COMPARISON: 08/22/2019, 08/25/2019. FINDINGS: Atherosclerosis of the aortic knob. Normal cardiac silhouette. Lungs and pleural spaces are clear. No pneumothorax or osseous abnormalities. IMPRESSION: Atherosclerosis. POS: CET
[2019-09-01] MEDS ORDERED: Meclizine HCl 25 MG TAB ONE (10:27)
[2019-09-01 10:38] LABS: ALT (SGPT) 21 U/L (8-55); AST (SGOT) 16 U/L (5-34); Albumin 4.3 g/dL (3.4-4.8); Alkaline Phosphatase 66 U/L (40-110); Anion Gap 18 mmol/L (10-20); BUN (Urea Nitrogen) 9 mg/dL (9.8-20.1); Bilirubin, Total 1.4 mg/dL (0.2-1.2); CK (CPK) 35 U/L (29-168); Calc. Creatinine Clearance 0 mL/min (70-130); Calcium 9.9 mg/dL (7.8-10.44); Carbon Dioxide 19 mmol/L (23-31); Chloride 102 mmol/L (98-107); Estimated GFR-MDRD 89; Globulin 2.5 g/dL (2.4-3.5); Glucose 101 mg/dL (83-110); Potassium 3.9 mmol/L (3.5-5.1); Protein, Total 6.8 g/dL (6.0-8.3); Sodium 135 mmol/L (136-145)
[2019-09-01 11:03] LABS: Bacteria/HPF None Seen HPF (None Seen); Bilirubin Negative (Negative); Blood, Urine Negative (Negative); Clarity Clear (Clear); Glucose, Urine (Dipstick) Normal (Negative); Leukocyte 250 Leu/uL (Negative); Nitrite Negative (Negative); Protein, Urine (Dipstick) Negative (Neg-Trace); RBC/HPF 0-3 HPF (0-3); Squamous Epithelial 0-3 HPF (0-3); Urobilinogen Normal mg/dL (Less than 2)
[2019-09-01 12:28] LABS: Troponin I Less than 0.010 ng/mL (< 0.028)
== END 2019-09-01 13:32 | disposition home or self-care (01) ==
LOC: ERS 09:20
DX: R07.9 Chest pain, unspecified (principal); E03.9 Hypothyroidism, unspecified; I10 Essential (primary) hypertension; F41.9 Anxiety disorder, unspecified; Z79.899 Other long term (current) drug therapy
CPT/HCPCS: 36415; 71045; 80053; 81003; 81015; 82550; 84484; 85025; 93005; J8597

== ENCOUNTER 2019-09-18 10:55 | Emergency (ER) | payer MEDICARE, MEDICAID ==
[2019-09-18] MEDS ORDERED: Aspirin Chewable 81 MG TAB ONE (11:19)
[2019-09-18 11:59] LABS: #Monocytes 0.5 thou/uL (0.11-0.59); #Neutrophils 4.5 thou/uL (1.40-6.50); %Basophils 0.4 % (0.0-1.0); %Eosinophils 0.3 % (0.0-10.0); %Lymphocytes 15.9 % (21.0-51.0); %Monocytes 8.8 % (0.0-10.0); %Neutrophils 74.6 % (42.0-75.0); Hemoglobin 13.9 g/dL (12.0-16.0); Mean Corpuscular HGB CONC 32.9 g/dL (32.0-36.0); Mean Corpuscular Hemoglobin 29.1 pg (27.0-31.0); Mean Corpuscular Volume 88.5 fL (78.0-98.0); Mean Platelet Volume 7.2 fL (7.4-10.4); Platelet Count 295 thou/uL (130-400); RBC Distribution Width 11.6 % (11.5-14.5); Red Blood Cell (RBC) Count 4.77 mill/uL (4.20-5.40); White Blood Cell (WBC) Count 6.1 thou/uL (4.8-10.8)
--- NOTE | 2019-09-18 12:01 | RAD ---
XR Chest 1 View Portable HISTORY: Chest pain COMPARISON: 09/01/2019 FINDINGS: The heart size is at upper limits of normal. The lungs are well expanded without focal area s of consolidation, selina pulmonary edema, pneumothorax or pleural effusions. IMPRESSION: No radiographic evidence of acute cardiopulmonary process.
[2019-09-18 12:05] LABS: ALT (SGPT) 22 U/L (8-55); AST (SGOT) 16 U/L (5-34); Albumin 3.9 g/dL (3.4-4.8); Alkaline Phosphatase 80 U/L (40-110); Anion Gap 16 mmol/L (10-20); BUN (Urea Nitrogen) 9 mg/dL (9.8-20.1); Calc. Creatinine Clearance 0 mL/min (70-130); Calcium 9.3 mg/dL (7.8-10.44); Carbon Dioxide 21 mmol/L (23-31); Chloride 104 mmol/L (98-107); Estimated GFR-MDRD Greater than 90; Globulin 2.5 g/dL (2.4-3.5); Glucose 98 mg/dL (83-110); Potassium 3.7 mmol/L (3.5-5.1); Protein, Total 6.4 g/dL (6.0-8.3); Sodium 137 mmol/L (136-145)
[2019-09-18 12:54] LABS: Bacteria/HPF 1+ HPF (None Seen); Bilirubin Negative (Negative); Blood, Urine Negative (Negative); Clarity Turbid (Clear); Glucose, Urine (Dipstick) Normal (Negative); Leukocyte 500 Leu/uL (Negative); Nitrite Negative (Negative); Protein, Urine (Dipstick) Negative (Neg-Trace); Urobilinogen Normal mg/dL (Less than 2); WBC/HPF 21-50 HPF (0-3)
== END 2019-09-18 13:30 | disposition home or self-care (01) ==
LOC: ERS 10:55
DX: J20.9 Acute bronchitis, unspecified (principal); I10 Essential (primary) hypertension; E03.9 Hypothyroidism, unspecified; F41.9 Anxiety disorder, unspecified; Z79.899 Other long term (current) drug therapy
CPT/HCPCS: 36415; 71045; 80053; 81003; 81015; 84484; 85025; 93005; 94640; J7620

== ENCOUNTER 2019-09-25 12:12 | Emergency (ER) | payer MEDICARE, MEDICAID ==
[2019-09-25] MEDS ORDERED: Lorazepam 2 MG/ML VIAL ONE (12:24)
--- NOTE | 2019-09-25 12:54 | RAD ---
Chest AP view INDICATION: Shortness of breath and chest pressure COMPARISON: September 18, 2019 FINDINGS: Lungs:The lungs are clear Cardiac silhouette:Stable cardiomegaly Pulmonary vasculature:Normal Pleural spaces:No pleural effusion or pneumothorax is demonstrated. Upper abdomen:No abnormality seen. Osseous structures: No acute osseous abnormality. Additional findings:None. IMPRESSION: Stable moderate cardiomegaly
[2019-09-25 12:56] LABS: Hemoglobin 14.3 g/dL (12.0-16.0); Mean Corpuscular HGB CONC 34.1 g/dL (32.0-36.0); Mean Corpuscular Hemoglobin 30.3 pg (27.0-31.0); Mean Corpuscular Volume 88.8 fL (78.0-98.0); RBC Distribution Width 11.8 % (11.5-14.5); Red Blood Cell (RBC) Count 4.73 mill/uL (4.20-5.40); White Blood Cell (WBC) Count 5.9 thou/uL (4.8-10.8)
[2019-09-25 12:57] LABS: #Lymphocytes 1.1 thou/uL (1.20-3.40); #Monocytes 0.5 thou/uL (0.11-0.59); #Neutrophils 4.1 thou/uL (1.40-6.50); %Basophils 0.6 % (0.0-1.0); %Eosinophils 0.4 % (0.0-10.0); %Lymphocytes 19.3 % (21.0-51.0); %Neutrophils 70.6 % (42.0-75.0)
[2019-09-25 13:01] LABS: Mean Platelet Volume 8.1 fL (7.4-10.4); Platelet Count 261 thou/uL (130-400)
[2019-09-25 13:58] LABS: ALT (SGPT) 21 U/L (8-55); AST (SGOT) 15 U/L (5-34); Albumin 4.1 g/dL (3.4-4.8); Alkaline Phosphatase 78 U/L (40-110); Anion Gap 17 mmol/L (10-20); BUN (Urea Nitrogen) 9 mg/dL (9.8-20.1); Bilirubin, Total 1.3 mg/dL (0.2-1.2); CK (CPK) 39 U/L (29-168); Calc. Creatinine Clearance 0 mL/min (70-130); Calcium 9.5 mg/dL (7.8-10.44); Carbon Dioxide 20 mmol/L (23-31); Chloride 103 mmol/L (98-107); Estimated GFR-MDRD Greater than 90; Globulin 2.5 g/dL (2.4-3.5); Glucose 87 mg/dL (83-110); Potassium 3.9 mmol/L (3.5-5.1); Protein, Total 6.6 g/dL (6.0-8.3); Sodium 136 mmol/L (136-145)
== END 2019-09-25 14:00 | disposition home or self-care (01) ==
LOC: ERS 12:12
DX: F41.9 Anxiety disorder, unspecified (principal); R06.00 Dyspnea, unspecified; E03.9 Hypothyroidism, unspecified; I10 Essential (primary) hypertension; Z79.899 Other long term (current) drug therapy
CPT/HCPCS: 71045; 80053; 82550; 83880; 84484; 85025; 93005; 96374; J2060

== ENCOUNTER 2019-10-01 07:35 | Emergency (ER) | payer MEDICARE, MEDICAID ==
[2019-10-01 09:09] LABS: Bilirubin Negative (Negative); Blood, Urine Negative (Negative); Clarity Clear (Clear); Glucose, Urine (Dipstick) Normal (Negative); Leukocyte Negative Leu/uL (Negative); Nitrite Negative (Negative); Protein, Urine (Dipstick) Negative (Neg-Trace); Urobilinogen Normal mg/dL (Less than 2)
[2019-10-01] MEDS ORDERED: Meclizine HCl 25 MG TAB ONE (09:25)
[2019-10-01 09:39] LABS: #Basophils 0.1 thou/uL (0.0-0.2); #Eosinphils 0.1 thou/uL (0.0-0.7); #Lymphocytes 0.9 thou/uL (1.20-3.40); #Monocytes 0.5 thou/uL (0.11-0.59); #Neutrophils 3.6 thou/uL (1.40-6.50); %Basophils 1.5 % (0.0-1.0); %Lymphocytes 17.2 % (21.0-51.0); %Monocytes 10.2 % (0.0-10.0); %Neutrophils 70.2 % (42.0-75.0); Mean Corpuscular HGB CONC 34.1 g/dL (32.0-36.0); Mean Corpuscular Hemoglobin 30.6 pg (27.0-31.0); Mean Corpuscular Volume 89.7 fL (78.0-98.0); Mean Platelet Volume 7.3 fL (7.4-10.4); Platelet Count 244 thou/uL (130-400); Red Blood Cell (RBC) Count 4.92 mill/uL (4.20-5.40); White Blood Cell (WBC) Count 5.2 thou/uL (4.8-10.8)
[2019-10-01 09:48] LABS: Anion Gap 15 mmol/L (10-20); BUN (Urea Nitrogen) 15 mg/dL (9.8-20.1); Calc. Creatinine Clearance 0 mL/min (70-130); Calcium 10.1 mg/dL (7.8-10.44); Carbon Dioxide 23 mmol/L (23-31); Chloride 106 mmol/L (98-107); Estimated GFR-MDRD 85; Glucose 100 mg/dL (83-110); Potassium 3.5 mmol/L (3.5-5.1); Sodium 140 mmol/L (136-145)
[2019-10-01] MEDS ORDERED: hydrOXYzine 25 MG TAB ONE (10:02)
--- NOTE | 2019-10-04 10:01 | EKG ---
Test Reason : Blood Pressure : / mmHG Vent. Rate : 059 BPM Atrial Rate : 059 BPM P-R Int : 180 ms QRS Dur : 088 ms QT Int : 454 ms P-R-T Axes : 088 -20 029 degrees QTc Int : 449 ms Sinus bradycardia Moderate voltage criteria for LVH, may be normal variant Nonspecific ST abnormality Abnormal ECG Confirmed by SANA CEJA D.O. ([id number]), social media editor FREDI KEY ([id number]) on 10/04/2019 10:00:34 AM Referred By: Confirmed By:SANA CEJA D.O.
== END 2019-10-01 11:46 | disposition home or self-care (01) ==
LOC: ERS 07:35
DX: F41.9 Anxiety disorder, unspecified (principal); R07.9 Chest pain, unspecified; E03.9 Hypothyroidism, unspecified; I10 Essential (primary) hypertension; Z79.899 Other long term (current) drug therapy
CPT/HCPCS: 80048; 81003; 84484; 85025; 93005; 96360; J8597

== ENCOUNTER 2020-07-24 13:38 | Emergency (ER) | payer MEDICARE, MEDICAID ==
[2020-07-24 14:54] LABS: #Lymphocytes 1.2 thou/uL (1.20-3.40); #Monocytes 0.6 thou/uL (0.11-0.59); #Neutrophils 5.3 thou/uL (1.40-6.50); %Basophils 0.6 % (0.0-1.0); %Eosinophils 0.3 % (0.0-10.0); %Lymphocytes 16.4 % (21.0-51.0); %Monocytes 8.9 % (0.0-10.0); %Neutrophils 73.8 % (42.0-75.0); Hemoglobin 14.6 g/dL (12.0-16.0); Mean Corpuscular Volume 91.3 fL (78.0-98.0); Mean Platelet Volume 7.6 fL (7.4-10.4); Platelet Count 217 thou/uL (130-400); Red Blood Cell (RBC) Count 4.69 mill/uL (4.20-5.40); White Blood Cell (WBC) Count 7.2 thou/uL (4.8-10.8)
--- NOTE | 2020-07-24 14:59 | RAD ---
RADIOGRAPH CHEST 1 VIEW: DATE: 07/24/2020 HISTORY: 74-year-old female status post syncope. Concern for aspiration. FINDINGS: There are no airspace densities, pulmonary edema, pneumothorax, or cardiomegaly. The lateral costophr enic angles are sharp. IMPRESSION: No acute cardiopulmonary findings.
[2020-07-24 15:18] LABS: ALT (SGPT) 17 U/L (8-55); AST (SGOT) 18 U/L (5-34); Alkaline Phosphatase 60 U/L (40-110); Anion Gap 14 mmol/L (10-20); BUN (Urea Nitrogen) 11 mg/dL (9.8-20.1); Bilirubin, Total 0.8 mg/dL (0.2-1.2); Calc. Creatinine Clearance 0 mL/min (70-130); Calcium 9.4 mg/dL (7.8-10.44); Carbon Dioxide 26 mmol/L (23-31); Chloride 102 mmol/L (98-107); Estimated GFR-MDRD 82; Globulin 3.4 g/dL (2.4-3.5); Glucose 95 mg/dL (83-110); Potassium 4.2 mmol/L (3.5-5.1); Protein, Total 7.4 g/dL (6.0-8.3); Sodium 138 mmol/L (136-145)
== END 2020-07-24 16:50 | disposition home or self-care (01) ==
LOC: ERS 13:38
DX: R53.1 Weakness (principal); E03.9 Hypothyroidism, unspecified; I10 Essential (primary) hypertension; F41.9 Anxiety disorder, unspecified; Z79.899 Other long term (current) drug therapy
CPT/HCPCS: 71045; 80053; 84484; 85025; 93005

== ENCOUNTER 2020-08-23 08:37 | Emergency (ER) | payer MEDICARE, MEDICAID ==
--- NOTE | 2020-08-23 09:48 | RAD ---
PORTABLE CHEST: Date: 08/23/2020 HISTORY: Weakness and tachypnea. COMPARISON: 07/24/2020. FINDINGS: Heart size is enlarged. No signs of overt failure. There are some atelectatic changes in the bases. IMPRESSION: 1. Linear atelectasis in both lungs bases. 2. Mild cardiomegaly. POS: KIRILL
[2020-08-23 09:54] LABS: #Lymphocytes 0.8 thou/uL (1.20-3.40); #Monocytes 0.5 thou/uL (0.11-0.59); #Neutrophils 4.2 thou/uL (1.40-6.50); %Basophils 0.5 % (0.0-1.0); %Eosinophils 0.9 % (0.0-10.0); %Lymphocytes 14.2 % (21.0-51.0); %Monocytes 9.2 % (0.0-10.0); %Neutrophils 75.2 % (42.0-75.0); ALT (SGPT) 15 U/L (8-55); AST (SGOT) 13 U/L (5-34); Albumin 3.9 g/dL (3.4-4.8); Alkaline Phosphatase 56 U/L (40-110); Anion Gap 13 mmol/L (10-20); BUN (Urea Nitrogen) 12 mg/dL (9.8-20.1); Bilirubin, Total 1.1 mg/dL (0.2-1.2); Calc. Creatinine Clearance 0 mL/min (70-130); Calcium 9.2 mg/dL (7.8-10.44); Carbon Dioxide 25 mmol/L (23-31); Chloride 103 mmol/L (98-107); Globulin 2.9 g/dL (2.4-3.5); Glucose 101 mg/dL (83-110); Hemoglobin 14.2 g/dL (12.0-16.0); Mean Corpuscular Hemoglobin 31.5 pg (27.0-31.0); Mean Corpuscular Volume 89.9 fL (78.0-98.0); Mean Platelet Volume 7.6 fL (7.4-10.4); Platelet Count 214 thou/uL (130-400); Protein, Total 6.8 g/dL (6.0-8.3); RBC Distribution Width 12.3 % (11.5-14.5); Sodium 137 mmol/L (136-145); White Blood Cell (WBC) Count 5.6 thou/uL (4.8-10.8)
[2020-08-23 10:13] LABS: Bilirubin Negative (Negative); Blood, Urine Negative (Negative); Clarity Clear (Clear); Glucose, Urine (Dipstick) Normal (Negative); Ketone, Urine Negative (Negative); Leukocyte Negative Leu/uL (Negative); Nitrite Negative (Negative); Protein, Urine (Dipstick) Negative (Neg-Trace); Specific Gravity, Urine 1.012 (1.002-1.036); Urobilinogen Normal mg/dL (Less than 2); pH, Urine 7.5 (5.0-9.0)
== END 2020-08-23 11:03 | disposition home or self-care (01) ==
LOC: ERS 08:37
DX: R53.1 Weakness (principal); F33.9 Major depressive disorder, recurrent, unspecified; I10 Essential (primary) hypertension; E03.9 Hypothyroidism, unspecified; Z85.42 Personal history of malignant neoplasm of other parts of uterus; Z79.899 Other long term (current) drug therapy
CPT/HCPCS: 71045; 80053; 81003; 83605; 83880; 84484; 85025; 93005; 94760

== ENCOUNTER 2020-09-06 11:29 | Emergency (ER) | payer MEDICARE, MEDICAID ==
[2020-09-06 11:59] LABS: Bilirubin Negative (Negative); Blood, Urine Negative (Negative); Glucose, Urine (Dipstick) Negative (Negative); Ketone, Urine Negative (Negative); Leukocyte Negative (Negative); Nitrite Negative (Negative); Protein, Urine (Dipstick) Negative (Neg-Trace); Specific Gravity, Urine 1.015 (1.005-1.030); Urobilinogen 0.2 mg/dL (Less than 2); pH, Urine 7.5 (5.0-9.0)
[2020-09-06 12:03] LABS: Clarity Clear (Clear)
[2020-09-06 12:41] LABS: #Lymphocytes 1.1 thou/uL (1.20-3.40); #Monocytes 0.7 thou/uL (0.11-0.59); #Neutrophils 5.5 thou/uL (1.40-6.50); %Basophils 0.1 % (0.0-1.0); %Eosinophils 0.3 % (0.0-10.0); %Lymphocytes 14.6 % (21.0-51.0); %Monocytes 9.5 % (0.0-10.0); %Neutrophils 75.6 % (42.0-75.0); Hemoglobin 14.7 g/dL (12.0-16.0); Mean Corpuscular HGB CONC 33.9 g/dL (32.0-36.0); Mean Corpuscular Volume 91.5 fL (78.0-98.0); Mean Platelet Volume 7.4 fL (7.4-10.4); Platelet Count 217 thou/uL (130-400); RBC Distribution Width 12.3 % (11.5-14.5); Red Blood Cell (RBC) Count 4.75 mill/uL (4.20-5.40); White Blood Cell (WBC) Count 7.3 thou/uL (4.8-10.8)
[2020-09-06 13:06] LABS: ALT (SGPT) 17 U/L (8-55); AST (SGOT) 14 U/L (5-34); Albumin 4.1 g/dL (3.4-4.8); Alkaline Phosphatase 58 U/L (40-110); Anion Gap 15 mmol/L (10-20); BUN (Urea Nitrogen) 12 mg/dL (9.8-20.1); Bilirubin, Total 0.7 mg/dL (0.2-1.2); Calc. Creatinine Clearance 0 mL/min (70-130); Calcium 9.2 mg/dL (7.8-10.44); Carbon Dioxide 22 mmol/L (23-31); Chloride 103 mmol/L (98-107); Globulin 3.1 g/dL (2.4-3.5); Glucose 103 mg/dL (83-110); Protein, Total 7.2 g/dL (6.0-8.3); Sodium 136 mmol/L (136-145)
== END 2020-09-06 13:55 | disposition home or self-care (01) ==
LOC: ERS 11:29
DX: R53.83 Other fatigue (principal); E03.9 Hypothyroidism, unspecified; I10 Essential (primary) hypertension
CPT/HCPCS: 51701; 80053; 81003; 85025; 93005

== ENCOUNTER 2020-12-22 09:48 | Emergency (ER) | payer MEDICARE, MEDICAID ==
[2020-12-22 10:20] LABS: #Lymphocytes 1.2 thou/uL (1.20-3.40); #Monocytes 0.6 thou/uL (0.11-0.59); #Neutrophils 3.5 thou/uL (1.40-6.50); %Basophils 0.6 % (0.0-1.0); %Eosinophils 0.9 % (0.0-10.0); %Lymphocytes 22.5 % (21.0-51.0); %Monocytes 10.4 % (0.0-10.0); %Neutrophils 65.7 % (42.0-75.0); Hemoglobin 14.4 g/dL (12.0-16.0); Mean Corpuscular HGB CONC 33.8 g/dL (32.0-36.0); Mean Corpuscular Hemoglobin 31.1 pg (27.0-31.0); Mean Platelet Volume 6.8 fL (7.4-10.4); Platelet Count 243 thou/uL (130-400); RBC Distribution Width 11.8 % (11.5-14.5); Red Blood Cell (RBC) Count 4.64 mill/uL (4.20-5.40); White Blood Cell (WBC) Count 5.4 thou/uL (4.8-10.8)
[2020-12-22 10:44] LABS: ALT (SGPT) 12 U/L (8-55); AST (SGOT) 13 U/L (5-34); Albumin 3.9 g/dL (3.4-4.8); Alkaline Phosphatase 67 U/L (40-110); Anion Gap 14 mmol/L (10-20); BUN (Urea Nitrogen) 10 mg/dL (9.8-20.1); Bilirubin, Total 0.9 mg/dL (0.2-1.2); Calc. Creatinine Clearance 0 mL/min (70-130); Calcium 9.3 mg/dL (7.8-10.44); Carbon Dioxide 22 mmol/L (23-31); Chloride 105 mmol/L (98-107); Globulin 3.1 g/dL (2.4-3.5); Glucose 99 mg/dL (83-110); Sodium 137 mmol/L (136-145)
== END 2020-12-22 12:40 | disposition home or self-care (01) ==
LOC: ERS 09:48
DX: R06.00 Dyspnea, unspecified (principal); Z79.899 Other long term (current) drug therapy; E03.9 Hypothyroidism, unspecified; I10 Essential (primary) hypertension; Z85.42 Personal history of malignant neoplasm of other parts of uterus
CPT/HCPCS: 36415; 71045; 80053; 83880; 84484; 85025; 93005

== ENCOUNTER 2021-01-03 10:28 | Emergency (ER) | payer MEDICARE, MEDICAID ==
[2021-01-03 11:28] LABS: #Lymphocytes 0.8 thou/uL (1.20-3.40); #Monocytes 0.5 thou/uL (0.11-0.59); #Neutrophils 2.9 thou/uL (1.40-6.50); %Basophils 0.6 % (0.0-1.0); %Eosinophils 0.9 % (0.0-10.0); %Lymphocytes 19.2 % (21.0-51.0); %Monocytes 11.4 % (0.0-10.0); %Neutrophils 67.8 % (42.0-75.0); Hemoglobin 14.1 g/dL (12.0-16.0); Mean Corpuscular HGB CONC 33.9 g/dL (32.0-36.0); Mean Corpuscular Hemoglobin 31.4 pg (27.0-31.0); Mean Corpuscular Volume 92.8 fL (78.0-98.0); Mean Platelet Volume 7.1 fL (7.4-10.4); Platelet Count 223 thou/uL (130-400); RBC Distribution Width 11.7 % (11.5-14.5); Red Blood Cell (RBC) Count 4.48 mill/uL (4.20-5.40); White Blood Cell (WBC) Count 4.2 thou/uL (4.8-10.8)
[2021-01-03 11:57] LABS: ALT (SGPT) 16 U/L (8-55); AST (SGOT) 21 U/L (5-34); Albumin 3.6 g/dL (3.4-4.8); Alkaline Phosphatase 58 U/L (40-110); Anion Gap 14 mmol/L (10-20); BUN (Urea Nitrogen) 13 mg/dL (9.8-20.1); Calc. Creatinine Clearance 0 mL/min (70-130); Calcium 9.4 mg/dL (7.8-10.44); Carbon Dioxide 22 mmol/L (23-31); Chloride 104 mmol/L (98-107); Globulin 3.1 g/dL (2.4-3.5); Glucose 93 mg/dL (83-110); Lipase 33 U/L (8-78); Potassium 4.6 mmol/L (3.5-5.1); Protein, Total 6.7 g/dL (5.8-8.1); Sodium 135 mmol/L (136-145)
[2021-01-03 12:56] LABS: Bilirubin Negative (Negative); Blood, Urine Negative (Negative); Clarity Clear (Clear); Glucose, Urine (Dipstick) Normal (Negative); Ketone, Urine Negative (Negative); Leukocyte Negative Leu/uL (Negative); Nitrite Negative (Negative); Protein, Urine (Dipstick) Negative (Neg-Trace); Specific Gravity, Urine 1.008 (1.002-1.036); Urobilinogen Normal mg/dL (Less than 2)
== END 2021-01-03 13:30 | disposition home or self-care (01) ==
LOC: ERS 10:28
DX: R53.1 Weakness (principal); E03.9 Hypothyroidism, unspecified; I10 Essential (primary) hypertension; E78.00 Pure hypercholesterolemia, unspecified; Z79.82 Long term (current) use of aspirin; Z79.899 Other long term (current) drug therapy
CPT/HCPCS: 71045; 80053; 81003; 83690; 84484; 85025; 93005

== ENCOUNTER 2021-02-28 09:20 | Emergency (ER) | payer MEDICARE, MEDICAID ==
[2021-02-28 10:36] LABS: #Eosinphils 0.1 thou/uL (0.0-0.7); #Monocytes 0.6 thou/uL (0.11-0.59); #Neutrophils 3.3 thou/uL (1.40-6.50); %Basophils 0.6 % (0.0-1.0); %Eosinophils 1.1 % (0.0-10.0); %Lymphocytes 19.6 % (21.0-51.0); %Monocytes 12.6 % (0.0-10.0); %Neutrophils 66.2 % (42.0-75.0); Mean Corpuscular HGB CONC 33.9 g/dL (32.0-36.0); Mean Corpuscular Hemoglobin 31.4 pg (27.0-31.0); Mean Corpuscular Volume 92.7 fL (78.0-98.0); Mean Platelet Volume 7.3 fL (7.4-10.4); Platelet Count 207 thou/uL (130-400); RBC Distribution Width 11.5 % (11.5-14.5); Red Blood Cell (RBC) Count 4.15 mill/uL (4.20-5.40)
[2021-02-28 10:49] LABS: ALT (SGPT) 20 U/L (8-55); AST (SGOT) 16 U/L (5-34); Albumin 3.5 g/dL (3.4-4.8); Alkaline Phosphatase 52 U/L (40-110); Anion Gap 12 mmol/L (10-20); BUN (Urea Nitrogen) 13 mg/dL (9.8-20.1); Bilirubin, Total 0.7 mg/dL (0.2-1.2); Calc. Creatinine Clearance 0 mL/min (70-130); Calcium 8.9 mg/dL (7.8-10.44); Carbon Dioxide 23 mmol/L (23-31); Chloride 108 mmol/L (98-107); Globulin 2.5 g/dL (2.4-3.5); Glucose 97 mg/dL (83-110); Lipase 31 U/L (8-78); Potassium 4.4 mmol/L (3.5-5.1); Sodium 139 mmol/L (136-145)
[2021-02-28 12:51] LABS: Bilirubin Negative (Negative); Blood, Urine Negative (Negative); Glucose, Urine (Dipstick) Negative (Negative); Ketone, Urine Negative (Negative); Leukocyte Negative (Negative); Nitrite Negative (Negative); Protein, Urine (Dipstick) Negative (Neg-Trace); Specific Gravity, Urine 1.015 (1.005-1.030); Urobilinogen 0.2 mg/dL (Less than 2); pH, Urine 8.5 (5.0-9.0)
[2021-02-28 12:54] LABS: Clarity Clear (Clear)
[2021-02-28 12:57] LABS: Bacteria/HPF None Seen HPF (None Seen); RBC/HPF 0-3 HPF (0-3); Squamous Epithelial 0-3 HPF (0-3); WBC/HPF 0-3 HPF (0-3)
== END 2021-02-28 19:25 ==
LOC: ERS 09:20
DX: R53.1 Weakness (principal); I10 Essential (primary) hypertension; E03.9 Hypothyroidism, unspecified; Z85.42 Personal history of malignant neoplasm of other parts of uterus; Z79.82 Long term (current) use of aspirin; Z79.899 Other long term (current) drug therapy
CPT/HCPCS: 36415; 71045; 80053; 81003; 83690; 84484; 85025; 93005

== ENCOUNTER 2021-03-03 21:51 | Inpatient (IN) | payer MEDICARE, MEDICAID ==
[2021-03-03] MEDS ORDERED: Fentanyl 100 MCG/2 ML VIAL ONE (22:23)
[2021-03-03] MEDS ORDERED: Ondansetron PF 4 MG/2 ML Vial ONE (22:23)
[2021-03-03 22:29] LABS: #Lymphocytes 0.8 thou/uL (1.20-3.40); #Monocytes 0.7 thou/uL (0.11-0.59); #Neutrophils 6.6 thou/uL (1.40-6.50); %Eosinophils 0.2 % (0.0-10.0); %Lymphocytes 9.8 % (21.0-51.0); Hemoglobin 15.8 g/dL (12.0-16.0); Mean Corpuscular HGB CONC 34.4 g/dL (32.0-36.0); Mean Corpuscular Hemoglobin 31.8 pg (27.0-31.0); Mean Corpuscular Volume 92.4 fL (78.0-98.0); Mean Platelet Volume 7.1 fL (7.4-10.4); Platelet Count 236 thou/uL (130-400); RBC Distribution Width 11.8 % (11.5-14.5); Red Blood Cell (RBC) Count 4.96 mill/uL (4.20-5.40); White Blood Cell (WBC) Count 8.1 thou/uL (4.8-10.8)
[2021-03-03 22:49] LABS: ALT (SGPT) 20 U/L (8-55); AST (SGOT) 16 U/L (5-34); Albumin 3.9 g/dL (3.4-4.8); Alkaline Phosphatase 62 U/L (40-110); Anion Gap 15 mmol/L (10-20); BUN (Urea Nitrogen) 13 mg/dL (9.8-20.1); Calc. Creatinine Clearance 0 mL/min (70-130); Calcium 9.8 mg/dL (7.8-10.44); Carbon Dioxide 25 mmol/L (23-31); Chloride 100 mmol/L (98-107); Globulin 3.2 g/dL (2.4-3.5); Glucose 136 mg/dL (83-110); Lipase 24 U/L (8-78); Potassium 4.3 mmol/L (3.5-5.1); Protein, Total 7.1 g/dL (5.8-8.1); Sodium 136 mmol/L (136-145)
[2021-03-03] MEDS ORDERED: Midazolam HCl 2 mg/2 ml Vial ONE (23:11)
[2021-03-04] MEDS ORDERED: Ondansetron ODT 4 MG TAB SL PRN (01:15)
[2021-03-04] MEDS ORDERED: Ondansetron PF 4 MG/2 ML Vial IVP PRN ×2 (01:15→09:57)
[2021-03-04 01:41] VITALS: BMI 27.4
[2021-03-04] MEDS: Sodium Chloride 0.9% 1,000 ML IV SCH ×2 (02:23→08:36)
[2021-03-04] MEDS ORDERED: Morphine 2 MG/ML VIAL SLOW IVP PRN ×2 (02:54→09:57)
[2021-03-04] MEDS ORDERED: Morphine 4 MG/ML VIAL SLOW IVP PRN (02:55)
[2021-03-04] MEDS ORDERED: Ondansetron ODT 4 MG TAB PO PRN (09:57)
[2021-03-04] MEDS ORDERED: hydrALAZINE 20 MG/ML VIAL SLOW IVP PRN (09:57)
[2021-03-04] MEDS ORDERED: Lactated Ringer's 1,000 ML IV SCH (10:15)
[2021-03-04] MEDS ORDERED: MD-Gastroview 120 ML BOT ONE (11:01)
[2021-03-04 12:14] LABS: SARS-CoV-2 PCR by NAA Not Detected (NotDetected)
[2021-03-04] MEDS ORDERED: Famotidine/PF 20 mg/2ml Vial SLOW IVP SCH (21:00)
[2021-03-04] MEDS ORDERED: risperiDONE 0.25 MG TAB PO SCH (21:00)
[2021-03-04] MEDS ORDERED: Atorvastatin Calcium 10 MG TAB PO SCH (21:00)
[2021-03-04] MEDS ORDERED: Enoxaparin Sodium 40 MG/0.4 ML SYRINGE SC SCH (21:00)
[2021-03-05] MEDS ORDERED: Levothyroxine Sodium 88 MCG TAB PO SCH (06:00)
[2021-03-05 06:09] LABS: Anion Gap 11 mmol/L (10-20); BUN (Urea Nitrogen) 12 mg/dL (9.8-20.1); Calc. Creatinine Clearance 88 mL/min (70-130); Calcium 8.6 mg/dL (7.8-10.44); Carbon Dioxide 26 mmol/L (23-31); Chloride 105 mmol/L (98-107); Glucose 97 mg/dL (83-110); Potassium 3.8 mmol/L (3.5-5.1); Sodium 138 mmol/L (136-145)
[2021-03-05 06:12] LABS: Mean Corpuscular HGB CONC 33.6 g/dL (32.0-36.0); Mean Corpuscular Hemoglobin 31.7 pg (27.0-31.0); Mean Corpuscular Volume 94.4 fL (78.0-98.0); Mean Platelet Volume 7.3 fL (7.4-10.4); Platelet Count 196 thou/uL (130-400); RBC Distribution Width 11.9 % (11.5-14.5); Red Blood Cell (RBC) Count 4.08 mill/uL (4.20-5.40); White Blood Cell (WBC) Count 5.2 thou/uL (4.8-10.8)
[2021-03-05 07:54] LABS: Band 9 % (5-11); Eosinophils 2 % (0-10); Lymphocytes 32 % (21-51); MDiff Complete? YES; Monocytes 3 % (0-10); Neutrophil 54 % (42-75)
[2021-03-05] MEDS ORDERED: Lisinopril 10 MG TAB PO SCH (09:00)
[2021-03-05] MEDS ORDERED: Aspirin Chewable 81 MG TAB PO SCH (09:00)
[2021-03-05] MEDS ORDERED: Fluticasone Propionate Nasal Spray 16 gm Bottle NASAL SCH (09:00)
[2021-03-05] MEDS ORDERED: Polyethylene Glycol 3350 17 GM Packet PO SCH (09:00)
[2021-03-05 11:49] VITALS: BP 129/68; TEMP 97.4
== END 2021-03-05 13:36 | DRG 390 ==
LOC: ERS 21:51 → SURG B 23:32
PROVIDERS: ADMIT Specialist; ATTEND Specialist
PROC: 0D9670Z Drainage of Stomach with Drainage Device, Via Natural or Artificial Opening (ICD-10-PCS; principal; 2021-03-03)
DX: K56.609 Unspecified intestinal obstruction, unspecified as to partial versus complete obstruction (principal); F32.9 Major depressive disorder, single episode, unspecified; I48.91 Unspecified atrial fibrillation; Z20.822 Contact with and (suspected) exposure to COVID-19; E03.9 Hypothyroidism, unspecified; E78.00 Pure hypercholesterolemia, unspecified; I10 Essential (primary) hypertension; Z85.42 Personal history of malignant neoplasm of other parts of uterus; Z90.710 Acquired absence of both cervix and uterus; Z88.1 Allergy status to other antibiotic agents; Z88.8 Allergy status to other drugs, medicaments and biological substances; Z79.82 Long term (current) use of aspirin; Z79.890 Hormone replacement therapy; Z79.899 Other long term (current) drug therapy; Z92.3 Personal history of irradiation; Z92.21 Personal history of antineoplastic chemotherapy
CPT/HCPCS: 36415; 43752; 74018; 74250; 80048; 80053; 83605; 83690; 85025; 96374; 96375; J2250; J2405; J3010; Q9963; U0003; U0005

== ENCOUNTER 2021-07-11 17:10 | Observation (INO) | payer MEDICARE, MEDICAID ==
[2021-07-11 18:54] LABS: #Eosinphils 0.1 thou/uL (0.0-0.7); #Lymphocytes 1.3 thou/uL (1.20-3.40); #Monocytes 0.7 thou/uL (0.11-0.59); #Neutrophils 4.6 thou/uL (1.40-6.50); %Basophils 0.5 % (0.0-1.0); %Eosinophils 0.8 % (0.0-10.0); %Lymphocytes 19.6 % (21.0-51.0); %Monocytes 10.7 % (0.0-10.0); %Neutrophils 68.4 % (42.0-75.0); Hemoglobin 12.9 g/dL (12.0-16.0); Mean Corpuscular HGB CONC 33.7 g/dL (32.0-36.0); Mean Corpuscular Hemoglobin 30.7 pg (27.0-31.0); Mean Corpuscular Volume 91.2 fL (78.0-98.0); Mean Platelet Volume 7.4 fL (7.4-10.4); Platelet Count 200 thou/uL (130-400); RBC Distribution Width 11.6 % (11.5-14.5); White Blood Cell (WBC) Count 6.7 thou/uL (4.8-10.8)
[2021-07-11 19:23] LABS: ALT (SGPT) 15 U/L (8-55); AST (SGOT) 16 U/L (5-34); Albumin 3.8 g/dL (3.4-4.8); Alkaline Phosphatase 62 U/L (40-110); Anion Gap 14 mmol/L (10-20); BUN (Urea Nitrogen) 11 mg/dL (9.8-20.1); Bilirubin, Total 0.7 mg/dL (0.2-1.2); CK (CPK) 119 U/L (29-168); Calc. Creatinine Clearance 0 mL/min (70-130); Calcium 9.4 mg/dL (7.8-10.44); Carbon Dioxide 25 mmol/L (23-31); Chloride 105 mmol/L (98-107); Globulin 2.8 g/dL (2.4-3.5); Glucose 91 mg/dL (83-110); Lipase 25 U/L (8-78); Potassium 3.7 mmol/L (3.5-5.1); Protein, Total 6.6 g/dL (5.8-8.1); Sodium 140 mmol/L (136-145)
[2021-07-11 20:18] LABS: Bacteria/HPF None Seen HPF (None Seen); Bilirubin Negative (Negative); Blood, Urine Negative (Negative); Clarity Turbid (Clear); Glucose, Urine (Dipstick) Normal (Negative); Ketone, Urine Negative (Negative); Leukocyte 75 Leu/uL (Negative); Nitrite Negative (Negative); Protein, Urine (Dipstick) Negative (Neg-Trace); RBC/HPF 0-3 HPF (0-3); Specific Gravity, Urine 1.007 (1.002-1.036); Urobilinogen Normal mg/dL (Less than 2); WBC/HPF 0-3 HPF (0-3); pH, Urine 7.5 (5.0-9.0)
[2021-07-11] MEDS ORDERED: Nitroglycerin 0.4 MG TAB (25 Tab Bottle) SL PRN (22:14)
[2021-07-11] MEDS ORDERED: Ondansetron PF 4 MG/2 ML Vial IVP PRN (22:18)
[2021-07-11] MEDS ORDERED: Acetaminophen 650 MG Suppository PR PRN (22:18)
[2021-07-11] MEDS ORDERED: Acetaminophen 325 MG TAB PO PRN (22:18)
[2021-07-11] MEDS ORDERED: Ondansetron ODT 4 MG TAB PO PRN (22:18)
[2021-07-11] MEDS ORDERED: Senokot S 8.6-50 MG TAB PO PRN (22:18)
[2021-07-11] MEDS: Sodium Chloride 0.9% 1,000 ML IV SCH (23:26)
[2021-07-11 23:50] VITALS: BMI 29.4
[2021-07-12 01:44] LABS: Bacteria/HPF None Seen HPF (None Seen); Bilirubin Negative (Negative); Blood, Urine 1+ (Negative); Clarity Clear (Clear); Glucose, Urine (Dipstick) Normal (Negative); Ketone, Urine Negative (Negative); Leukocyte Negative Leu/uL (Negative); Nitrite Negative (Negative); Protein, Urine (Dipstick) Negative (Neg-Trace); RBC/HPF 0-3 HPF (0-3); Specific Gravity, Urine 1.009 (1.002-1.036); Squamous Epithelial 0-3 HPF (0-3); Urobilinogen Normal mg/dL (Less than 2); WBC/HPF 0-3 HPF (0-3); pH, Urine 6.5 (5.0-9.0)
[2021-07-12 01:46] LABS: Urine Culture Reflex No No
[2021-07-12 01:59] LABS: #Eosinphils 0.1 thou/uL (0.0-0.7); #Lymphocytes 1.4 thou/uL (1.20-3.40); #Monocytes 0.8 thou/uL (0.11-0.59); #Neutrophils 3.9 thou/uL (1.40-6.50); %Basophils 0.3 % (0.0-1.0); %Eosinophils 1.3 % (0.0-10.0); %Lymphocytes 22.3 % (21.0-51.0); %Monocytes 12.8 % (0.0-10.0); %Neutrophils 63.2 % (42.0-75.0); Hemoglobin 12.1 g/dL (12.0-16.0); Mean Corpuscular HGB CONC 34.6 g/dL (32.0-36.0); Mean Corpuscular Hemoglobin 31.5 pg (27.0-31.0); Mean Platelet Volume 7.4 fL (7.4-10.4); Platelet Count 184 thou/uL (130-400); RBC Distribution Width 11.6 % (11.5-14.5); Red Blood Cell (RBC) Count 3.84 mill/uL (4.20-5.40); White Blood Cell (WBC) Count 6.1 thou/uL (4.8-10.8)
[2021-07-12 02:23] LABS: Troponin I Less than 0.010 ng/mL (< 0.028)
[2021-07-12 02:27] LABS: Anion Gap 12 mmol/L (10-20); BUN (Urea Nitrogen) 12 mg/dL (9.8-20.1); Calc. Creatinine Clearance 99 mL/min (70-130); Calcium 8.7 mg/dL (7.8-10.44); Carbon Dioxide 25 mmol/L (23-31); Chloride 106 mmol/L (98-107); Glucose 89 mg/dL (83-110); Magnesium 1.6 mg/dL (1.6-2.6); Potassium 3.5 mmol/L (3.5-5.1); Sodium 139 mmol/L (136-145)
[2021-07-12] MEDS ORDERED: Hydrocerin (Eucerin) Cream 120 gm Jar TOP PRN (06:58)
[2021-07-12] MEDS ORDERED: HYDROcodone/Acetaminophen 5/325 mg Tablet PO PRN (06:58)
[2021-07-12] MEDS ORDERED: Loratadine 10 MG TAB PO PRN (06:58)
[2021-07-12] MEDS ORDERED: hydrALAZINE 20 MG/ML VIAL SLOW IVP PRN (06:58)
[2021-07-12] MEDS ORDERED: Bisacodyl 5 MG TAB PO PRN (06:58)
[2021-07-12] MEDS ORDERED: GUAIFENESIN SF SOLN 200 MG/10 ML UDCUP PO PRN (06:58)
[2021-07-12] MEDS ORDERED: Sodium Chloride 0.65% Nasal 44 ML BOT EA NARE PRN (06:58)
[2021-07-12] MEDS ORDERED: Calcium Carbonate 500 MG ChewTAB PO PRN (06:58)
[2021-07-12] MEDS ORDERED: Cepastat Lozenges 1 LOZ PO PRN (06:58)
[2021-07-12] MEDS ORDERED: Artificial Tear Sol 15 ML BOT EA EYE PRN (06:58)
[2021-07-12] MEDS ORDERED: Zolpidem Tartrate 5 MG TAB PO PRN (06:58)
[2021-07-12] MEDS ORDERED: Levothyroxine Sodium 88 MCG TAB PO SCH (07:30)
[2021-07-12] MEDS ORDERED: Aspirin Chewable 81 MG TAB PO SCH (09:00)
[2021-07-12] MEDS ORDERED: Polyethylene Glycol 3350 17 GM Packet PO SCH (09:00)
[2021-07-12] MEDS ORDERED: Famotidine 20 MG TAB PO SCH (09:00)
[2021-07-12] MEDS ORDERED: Lisinopril 10 MG TAB PO SCH (09:00)
[2021-07-12 11:53] LABS: SARS-CoV-2 PCR by NAA Not Detected (NotDetected)
[2021-07-12] MEDS: Sodium Chloride 0.9% 1,000 ML IV SCH (12:03)
[2021-07-12 15:44] VITALS: BP 148/92; TEMP 97.8
[2021-07-12] MEDS ORDERED: Atorvastatin Calcium 10 MG TAB PO SCH (21:00)
[2021-07-12] MEDS ORDERED: risperiDONE 0.25 MG TAB PO SCH (21:00)
[2021-07-12] MEDS ORDERED: Simvastatin 20 MG TAB PO SCH (21:00)
== END 2021-07-12 16:53 ==
LOC: ERS 17:10 → 2SE 21:23
PROVIDERS: ADMIT Student in an Organized Health Care Education/Training Program; ATTEND Internal Medicine
DX: R07.89 Other chest pain (principal); R10.84 Generalized abdominal pain; I10 Essential (primary) hypertension; E78.5 Hyperlipidemia, unspecified; E03.9 Hypothyroidism, unspecified; F41.9 Anxiety disorder, unspecified; C55 Malignant neoplasm of uterus, part unspecified; F32.A Depression, unspecified; Z20.822 Contact with and (suspected) exposure to COVID-19; Z98.890 Other specified postprocedural states; Z79.82 Long term (current) use of aspirin; Z79.899 Other long term (current) drug therapy; Z88.1 Allergy status to other antibiotic agents; Z88.8 Allergy status to other drugs, medicaments and biological substances; Z91.041 Radiographic dye allergy status; Z90.710 Acquired absence of both cervix and uterus
CPT/HCPCS: 74022; 80048; 80053; 81001; 82550; 83690; 83735; 84484 ×3; 85025 ×2; 87086; 93005; 97116; 97139 ×3; 99285; G0378 ×3; U0003; U0005; 36415; 81003; 81015; J7050

== ENCOUNTER 2021-08-02 08:16 | Emergency (ER) | payer MEDICARE, MEDICAID ==
[2021-08-02 08:59] LABS: #Eosinphils 0.1 thou/uL (0.0-0.7); #Monocytes 0.6 thou/uL (0.11-0.59); #Neutrophils 4.1 thou/uL (1.40-6.50); %Basophils 0.8 % (0.0-1.0); %Eosinophils 1.1 % (0.0-10.0); %Lymphocytes 16.7 % (21.0-51.0); %Monocytes 10.4 % (0.0-10.0); Hemoglobin 13.2 g/dL (12.0-16.0); Mean Corpuscular HGB CONC 33.2 g/dL (32.0-36.0); Mean Corpuscular Hemoglobin 30.5 pg (27.0-31.0); Mean Corpuscular Volume 91.7 fL (78.0-98.0); Platelet Count 210 thou/uL (130-400); RBC Distribution Width 11.6 % (11.5-14.5); Red Blood Cell (RBC) Count 4.33 mill/uL (4.20-5.40); White Blood Cell (WBC) Count 5.8 thou/uL (4.8-10.8)
[2021-08-02 09:16] LABS: ALT (SGPT) 14 U/L (8-55); AST (SGOT) 14 U/L (5-34); Albumin 3.7 g/dL (3.4-4.8); Alkaline Phosphatase 64 U/L (40-110); Anion Gap 10 mmol/L (10-20); BUN (Urea Nitrogen) 12 mg/dL (9.8-20.1); Bilirubin, Total 0.8 mg/dL (0.2-1.2); Calc. Creatinine Clearance 0 mL/min (70-130); Calcium 9.2 mg/dL (7.8-10.44); Carbon Dioxide 27 mmol/L (23-31); Chloride 104 mmol/L (98-107); Glucose 99 mg/dL (83-110); Potassium 4.1 mmol/L (3.5-5.1); Protein, Total 6.7 g/dL (5.8-8.1); Sodium 137 mmol/L (136-145)
[2021-08-02 09:53] LABS: Bilirubin Negative (Negative); Blood, Urine Negative (Negative); Clarity Clear (Clear); Glucose, Urine (Dipstick) Normal (Negative); Ketone, Urine Negative (Negative); Leukocyte Negative Leu/uL (Negative); Nitrite Negative (Negative); Protein, Urine (Dipstick) Negative (Neg-Trace); Specific Gravity, Urine 1.012 (1.002-1.036); Urobilinogen Normal mg/dL (Less than 2); pH, Urine 7.5 (5.0-9.0)
== END 2021-08-02 11:15 | disposition home or self-care (01) ==
LOC: ERS 08:16
DX: R53.1 Weakness (principal); E03.9 Hypothyroidism, unspecified; E78.00 Pure hypercholesterolemia, unspecified; I10 Essential (primary) hypertension; Z85.42 Personal history of malignant neoplasm of other parts of uterus; Z79.82 Long term (current) use of aspirin; Z79.899 Other long term (current) drug therapy
CPT/HCPCS: 71045; 80053; 81003; 84484; 85025; 93005

== ENCOUNTER 2021-08-10 08:34 | Emergency (ER) | payer MEDICARE, MEDICAID ==
[2021-08-10 08:57] LABS: #Basophils 0.1 thou/uL (0.0-0.2); #Eosinphils 0.1 thou/uL (0.0-0.7); #Monocytes 0.7 thou/uL (0.11-0.59); #Neutrophils 4.2 thou/uL (1.40-6.50); %Basophils 0.9 % (0.0-1.0); %Eosinophils 1.4 % (0.0-10.0); %Lymphocytes 16.5 % (21.0-51.0); %Neutrophils 69.2 % (42.0-75.0); Hemoglobin 13.7 g/dL (12.0-16.0); Mean Corpuscular HGB CONC 33.3 g/dL (32.0-36.0); Mean Corpuscular Hemoglobin 30.4 pg (27.0-31.0); Mean Corpuscular Volume 91.3 fL (78.0-98.0); Mean Platelet Volume 6.8 fL (7.4-10.4); Platelet Count 215 thou/uL (130-400); RBC Distribution Width 11.7 % (11.5-14.5); Red Blood Cell (RBC) Count 4.51 mill/uL (4.20-5.40); White Blood Cell (WBC) Count 6.1 thou/uL (4.8-10.8)
[2021-08-10] MEDS ORDERED: Lorazepam 2 MG/ML VIAL ONE (09:03)
[2021-08-10 09:18] LABS: ALT (SGPT) 16 U/L (8-55); AST (SGOT) 19 U/L (5-34); Albumin 3.8 g/dL (3.4-4.8); Alkaline Phosphatase 64 U/L (40-110); Anion Gap 13 mmol/L (10-20); BUN (Urea Nitrogen) 14 mg/dL (9.8-20.1); Bilirubin, Total 0.8 mg/dL (0.2-1.2); CK (CPK) 63 U/L (29-168); Calc. Creatinine Clearance 0 mL/min (70-130); Calcium 9.4 mg/dL (7.8-10.44); Carbon Dioxide 25 mmol/L (23-31); Chloride 103 mmol/L (98-107); Globulin 3.5 g/dL (2.4-3.5); Glucose 102 mg/dL (83-110); Protein, Total 7.3 g/dL (5.8-8.1); Sodium 136 mmol/L (136-145)
[2021-08-10 09:44] LABS: Bilirubin Negative (Negative); Blood, Urine Negative (Negative); Clarity Clear (Clear); Glucose, Urine (Dipstick) Normal (Negative); Ketone, Urine Negative (Negative); Leukocyte Negative Leu/uL (Negative); Nitrite Negative (Negative); Protein, Urine (Dipstick) Negative (Neg-Trace); Specific Gravity, Urine 1.013 (1.002-1.036); Urobilinogen Normal mg/dL (Less than 2)
[2021-08-10] MEDS ORDERED: Ondansetron PF 4 MG/2 ML Vial ONE (11:40)
== END 2021-08-10 13:28 | disposition home or self-care (01) ==
LOC: ERS 08:34
DX: R11.0 Nausea (principal); R53.81 Other malaise; I10 Essential (primary) hypertension; E03.9 Hypothyroidism, unspecified; E78.00 Pure hypercholesterolemia, unspecified; Z79.899 Other long term (current) drug therapy
CPT/HCPCS: 70450; 80053; 81003; 82550; 84484; 85025; 93005; 96374; J2060; J2405

== ENCOUNTER 2021-08-19 11:04 | Emergency (ER) | payer MEDICARE, MEDICAID ==
[2021-08-19 11:35] LABS: Bilirubin Negative (Negative); Blood, Urine Negative (Negative); Clarity Clear (Clear); Glucose, Urine (Dipstick) Normal (Negative); Ketone, Urine Negative (Negative); Leukocyte Negative Leu/uL (Negative); Nitrite Negative (Negative); Protein, Urine (Dipstick) Negative (Neg-Trace); Specific Gravity, Urine 1.011 (1.002-1.036); Urobilinogen Normal mg/dL (Less than 2)
[2021-08-19 11:38] LABS: #Eosinphils 0.1 thou/uL (0.0-0.7); #Lymphocytes 0.8 thou/uL (1.20-3.40); #Monocytes 0.7 thou/uL (0.11-0.59); %Basophils 0.5 % (0.0-1.0); %Lymphocytes 12.4 % (21.0-51.0); %Monocytes 9.9 % (0.0-10.0); %Neutrophils 76.2 % (42.0-75.0); Mean Corpuscular HGB CONC 33.3 g/dL (32.0-36.0); Mean Corpuscular Hemoglobin 30.6 pg (27.0-31.0); Mean Corpuscular Volume 91.8 fL (78.0-98.0); Mean Platelet Volume 6.9 fL (7.4-10.4); Platelet Count 238 thou/uL (130-400); RBC Distribution Width 11.7 % (11.5-14.5); Red Blood Cell (RBC) Count 4.57 mill/uL (4.20-5.40); White Blood Cell (WBC) Count 6.6 thou/uL (4.8-10.8)
[2021-08-19] MEDS ORDERED: Acetaminophen 500 MG TAB ONE (11:50)
[2021-08-19 12:07] LABS: ALT (SGPT) 18 U/L (8-55); AST (SGOT) 14 U/L (5-34); Albumin 3.8 g/dL (3.4-4.8); Alkaline Phosphatase 64 U/L (40-110); Anion Gap 10 mmol/L (10-20); BUN (Urea Nitrogen) 14 mg/dL (9.8-20.1); Bilirubin, Total 0.9 mg/dL (0.2-1.2); Calc. Creatinine Clearance 0 mL/min (70-130); Calcium 9.6 mg/dL (7.8-10.44); Carbon Dioxide 26 mmol/L (23-31); Chloride 100 mmol/L (98-107); Globulin 3.3 g/dL (2.4-3.5); Glucose 111 mg/dL (83-110); Potassium 4.3 mmol/L (3.5-5.1); Protein, Total 7.1 g/dL (5.8-8.1); Sodium 132 mmol/L (136-145)
== END 2021-08-19 17:00 | disposition home or self-care (01) ==
LOC: ERS 11:04
DX: R53.1 Weakness (principal); E03.9 Hypothyroidism, unspecified; E78.00 Pure hypercholesterolemia, unspecified; I10 Essential (primary) hypertension; Z79.82 Long term (current) use of aspirin; Z79.899 Other long term (current) drug therapy
CPT/HCPCS: 36415; 70450; 71045; 80053; 81003; 85025; 87086; 93005

== ENCOUNTER 2021-09-05 13:02 | Emergency (ER) | payer MEDICARE, MEDICAID ==
[2021-09-05] MEDS ORDERED: Magnesium Citrate 300 ML BOT ONE (13:35)
[2021-09-05] MEDS ORDERED: Acetaminophen 500 MG TAB ONE (13:35)
== END 2021-09-05 13:49 | disposition home or self-care (01) ==
LOC: ERS 13:02
DX: K59.00 Constipation, unspecified (principal); I10 Essential (primary) hypertension; E03.9 Hypothyroidism, unspecified; E78.00 Pure hypercholesterolemia, unspecified; Z79.82 Long term (current) use of aspirin; Z79.899 Other long term (current) drug therapy
CPT/HCPCS: 99283

== ENCOUNTER 2021-11-14 13:29 | Emergency (ER) | payer MEDICARE, MEDICAID ==
[2021-11-14 14:56] LABS: Bilirubin Negative (Negative); Blood, Urine Negative (Negative); Clarity Clear (Clear); Glucose, Urine (Dipstick) Normal (Negative); Ketone, Urine Negative (Negative); Leukocyte Negative Leu/uL (Negative); Nitrite Negative (Negative); Protein, Urine (Dipstick) Negative (Neg-Trace); Specific Gravity, Urine 1.005 (1.002-1.036); Urobilinogen Normal mg/dL (Less than 2); pH, Urine 7.5 (5.0-9.0)
[2021-11-14 14:57] LABS: #Eosinphils 0.1 thou/uL (0.0-0.7); #Monocytes 0.7 thou/uL (0.11-0.59); #Neutrophils 3.7 thou/uL (1.40-6.50); %Basophils 0.4 % (0.0-1.0); %Lymphocytes 18.4 % (21.0-51.0); %Neutrophils 67.2 % (42.0-75.0); Hemoglobin 13.2 g/dL (12.0-16.0); Mean Corpuscular HGB CONC 33.3 g/dL (32.0-36.0); Mean Corpuscular Volume 93.2 fL (78.0-98.0); Mean Platelet Volume 6.7 fL (7.4-10.4); Platelet Count 229 thou/uL (130-400); RBC Distribution Width 11.9 % (11.5-14.5); Red Blood Cell (RBC) Count 4.26 mill/uL (4.20-5.40); White Blood Cell (WBC) Count 5.5 thou/uL (4.8-10.8)
[2021-11-14 15:13] LABS: ALT (SGPT) 11 U/L (8-55); AST (SGOT) 11 U/L (5-34); Albumin 3.5 g/dL (3.4-4.8); Alkaline Phosphatase 54 U/L (40-110); Anion Gap 13 mmol/L (10-20); BUN (Urea Nitrogen) 11 mg/dL (9.8-20.1); Bilirubin, Total 1.7 mg/dL (0.2-1.2); Calc. Creatinine Clearance 0 mL/min (70-130); Calcium 9.2 mg/dL (7.8-10.44); Carbon Dioxide 26 mmol/L (23-31); Chloride 101 mmol/L (98-107); Globulin 2.9 g/dL (2.4-3.5); Glucose 98 mg/dL (83-110); Potassium 3.7 mmol/L (3.5-5.1); Protein, Total 6.4 g/dL (5.8-8.1); Sodium 136 mmol/L (136-145)
[2021-11-14] MEDS ORDERED: methylPREDNISolone Sod Succ/PF 125 MG/2 ML VIAL ONE (16:12)
[2021-11-14] MEDS ORDERED: Famotidine/PF 20 mg/2ml Vial ONE (16:12)
[2021-11-14] MEDS ORDERED: diphenhydrAMINE 50 MG/ML VIAL ONE (16:12)
== END 2021-11-14 17:47 | disposition home or self-care (01) ==
LOC: ERS 13:29
DX: R10.9 Unspecified abdominal pain (principal); E03.9 Hypothyroidism, unspecified; I10 Essential (primary) hypertension
CPT/HCPCS: 36415; 74176; 80053; 81003; 83605; 83690; 85025; 93005; J1200; J2930; S0028

== ENCOUNTER 2022-03-04 14:27 | Emergency (ER) | payer MEDICARE, MEDICAID ==
[2022-03-04 16:05] LABS: #Eosinphils 0.1 thou/uL (0.0-0.7); #Lymphocytes 0.9 thou/uL (1.20-3.40); #Monocytes 0.6 thou/uL (0.11-0.59); #Neutrophils 5.3 thou/uL (1.40-6.50); %Basophils 0.3 % (0.0-1.0); %Eosinophils 0.9 % (0.0-10.0); %Lymphocytes 12.4 % (21.0-51.0); %Monocytes 9.1 % (0.0-10.0); %Neutrophils 77.3 % (42.0-75.0); Hemoglobin 12.7 g/dL (12.0-16.0); Mean Corpuscular HGB CONC 33.4 g/dL (32.0-36.0); Mean Corpuscular Hemoglobin 31.6 pg (27.0-31.0); Mean Corpuscular Volume 94.7 fL (78.0-98.0); Mean Platelet Volume 6.5 fL (7.4-10.4); Platelet Count 236 thou/uL (130-400); RBC Distribution Width 11.8 % (11.5-14.5); Red Blood Cell (RBC) Count 4.02 mill/uL (4.20-5.40); White Blood Cell (WBC) Count 6.9 thou/uL (4.8-10.8)
[2022-03-04 16:25] LABS: ALT (SGPT) 31 U/L (8-55); AST (SGOT) 30 U/L (5-34); Albumin 3.5 g/dL (3.4-4.8); Alkaline Phosphatase 67 U/L (40-110); Anion Gap 12 mmol/L (10-20); BUN (Urea Nitrogen) 15 mg/dL (9.8-20.1); Bilirubin, Total 0.6 mg/dL (0.2-1.2); Calc. Creatinine Clearance 0 mL/min (70-130); Calcium 9.2 mg/dL (7.8-10.44); Carbon Dioxide 25 mmol/L (23-31); Chloride 104 mmol/L (98-107); Globulin 3.2 g/dL (2.4-3.5); Glucose 113 mg/dL (83-110); Potassium 3.9 mmol/L (3.5-5.1); Protein, Total 6.7 g/dL (5.8-8.1); Sodium 137 mmol/L (136-145)
== END 2022-03-04 17:13 | disposition home or self-care (01) ==
LOC: ERS 14:27
DX: S09.90XA Unspecified injury of head, initial encounter (principal); S01.112A Laceration without foreign body of left eyelid and periocular area, initial encounter; S05.12XA Contusion of eyeball and orbital tissues, left eye, initial encounter; I87.2 Venous insufficiency (chronic) (peripheral); I10 Essential (primary) hypertension; E03.9 Hypothyroidism, unspecified; E78.00 Pure hypercholesterolemia, unspecified; W10.9XXA Fall (on) (from) unspecified stairs and steps, initial encounter; Z85.42 Personal history of malignant neoplasm of other parts of uterus; Z79.899 Other long term (current) drug therapy
CPT/HCPCS: 36415; 70450; 70486; 72125; 80053; 85025

== ENCOUNTER 2022-03-17 15:11 | Outpatient (CLI) | payer MEDICARE, MEDICAID | END 2022-03-17 15:12 | disposition home or self-care (01) | LOC: BICRAD 15:11 | PROVIDERS: ATTEND Family Medicine | DX: M25.532 Pain in left wrist (principal); M79.89 Other specified soft tissue disorders ==

== ENCOUNTER 2022-03-28 10:17 | Outpatient (CLI) | payer MEDICARE, MEDICAID | END 2022-03-28 10:18 | disposition home or self-care (01) | LOC: BICMAMMO 10:17 | PROVIDERS: ATTEND Family Medicine | DX: Z12.31 Encounter for screening mammogram for malignant neoplasm of breast (principal); Z80.3 Family history of malignant neoplasm of breast | CPT/HCPCS: 77063; 77067 ==

== ENCOUNTER 2022-11-10 10:05 | Emergency (ER) | payer MEDICARE, MEDICAID ==
[2022-11-10 12:21] LABS: Bilirubin Negative (Negative); Blood, Urine Negative (Negative); Clarity Clear (Clear); Glucose, Urine (Dipstick) Normal (Negative); Ketone, Urine Negative (Negative); Leukocyte Negative Leu/uL (Negative); Nitrite Negative (Negative); Protein, Urine (Dipstick) Negative (Neg-Trace); Specific Gravity, Urine 1.012 (1.002-1.036); Urobilinogen Normal mg/dL (Less than 2)
[2022-11-10 12:48] LABS: SARS-CoV-2 NAA Rapid Test Not Detected (NotDetected)
[2022-11-10 12:48] LABS: ALT (SGPT) 20 U/L (8-55); AST (SGOT) 15 U/L (5-34); Albumin 3.9 g/dL (3.4-4.8); Alkaline Phosphatase 65 U/L (40-110); Anion Gap 12 mmol/L (10-20); BUN (Urea Nitrogen) 11 mg/dL (9.8-20.1); Bilirubin, Total 0.8 mg/dL (0.2-1.2); Calc. Creatinine Clearance 0 mL/min (70-130); Calcium 9.8 mg/dL (7.8-10.44); Carbon Dioxide 25 mmol/L (23-31); Chloride 104 mmol/L (98-107); Estimated GFR 90; Globulin 3.1 g/dL (2.4-3.5); Glucose 98 mg/dL (83-110); Lipase 24 U/L (8-78); Potassium 4.3 mmol/L (3.5-5.1); Sodium 137 mmol/L (136-145)
[2022-11-10 12:56] LABS: #Lymphocytes 1.2 thou/uL (1.20-3.40); #Monocytes 0.5 thou/uL (0.11-0.59); #Neutrophils 3.4 thou/uL (1.40-6.50); %Basophils 0.1 % (0.0-1.0); %Eosinophils 0.8 % (0.0-10.0); %Lymphocytes 22.6 % (21.0-51.0); %Monocytes 9.7 % (0.0-10.0); %Neutrophils 66.7 % (42.0-75.0); Hemoglobin 14.1 g/dL (12.0-16.0); Mean Corpuscular HGB CONC 32.3 g/dL (32.0-36.0); Mean Corpuscular Volume 92.8 fl (78.0-98.0); Mean Platelet Volume 8.4 fL (7.4-10.4); Platelet Count 196 10x3/uL (130-400); RBC Distribution Width 11.8 % (11.5-14.5); Red Blood Cell (RBC) Count 4.71 mill/uL (4.20-5.40); White Blood Cell (WBC) Count 5.1 10x3/uL (4.8-10.8)
== END 2022-11-10 15:17 | disposition home or self-care (01) ==
LOC: ERS 10:05
DX: R11.0 Nausea (principal); E03.9 Hypothyroidism, unspecified; E78.00 Pure hypercholesterolemia, unspecified; I10 Essential (primary) hypertension; Z79.899 Other long term (current) drug therapy; Z20.822 Contact with and (suspected) exposure to COVID-19
CPT/HCPCS: 74019; 80053; 81003; 83690; 85025; 93005; 96360; 96361; 99284; U0002

== ENCOUNTER 2022-11-22 10:10 | Emergency (ER) | payer MEDICARE, MEDICAID ==
[2022-11-22 11:02] LABS: #Eosinphils 0.1 thou/uL (0.0-0.7); #Lymphocytes 0.9 thou/uL (1.20-3.40); #Monocytes 0.7 thou/uL (0.11-0.59); #Neutrophils 3.3 thou/uL (1.40-6.50); %Basophils 0.4 % (0.0-1.0); %Lymphocytes 18.2 % (21.0-51.0); %Monocytes 14.2 % (0.0-10.0); %Neutrophils 66.2 % (42.0-75.0); Hemoglobin 14.1 g/dL (12.0-16.0); Mean Corpuscular Hemoglobin 30.3 pg (27.0-31.0); Mean Corpuscular Volume 91.7 fl (78.0-98.0); Mean Platelet Volume 7.7 fL (7.4-10.4); Platelet Count 203 10x3/uL (130-400); RBC Distribution Width 11.7 % (11.5-14.5); Red Blood Cell (RBC) Count 4.66 mill/uL (4.20-5.40)
[2022-11-22 11:23] LABS: ALT (SGPT) 15 U/L (8-55); AST (SGOT) 15 U/L (5-34); Albumin 3.7 g/dL (3.4-4.8); Alkaline Phosphatase 64 U/L (40-110); Anion Gap 14 mmol/L (10-20); BUN (Urea Nitrogen) 15 mg/dL (9.8-20.1); Bilirubin, Total 0.8 mg/dL (0.2-1.2); Calc. Creatinine Clearance 0 mL/min (70-130); Calcium 9.5 mg/dL (7.8-10.44); Carbon Dioxide 21 mmol/L (23-31); Chloride 104 mmol/L (98-107); Estimated GFR 90; Globulin 2.9 g/dL (2.4-3.5); Glucose 99 mg/dL (83-110); Magnesium 1.8 mg/dL (1.6-2.6); Protein, Total 6.6 g/dL (5.8-8.1); Sodium 135 mmol/L (136-145)
[2022-11-22 12:29] LABS: Bilirubin Negative (Negative); Blood, Urine Negative (Negative); Clarity Clear (Clear); Glucose, Urine (Dipstick) Normal (Negative); Ketone, Urine Negative (Negative); Leukocyte Negative Leu/uL (Negative); Nitrite Negative (Negative); Protein, Urine (Dipstick) Negative (Neg-Trace); Specific Gravity, Urine 1.007 (1.002-1.036); Urobilinogen Normal mg/dL (Less than 2)
== END 2022-11-22 17:47 ==
LOC: ERS 10:10
DX: K29.70 Gastritis, unspecified, without bleeding (principal); K59.00 Constipation, unspecified; E03.9 Hypothyroidism, unspecified; R11.0 Nausea; E78.00 Pure hypercholesterolemia, unspecified; I10 Essential (primary) hypertension; Z79.899 Other long term (current) drug therapy; Z79.82 Long term (current) use of aspirin
CPT/HCPCS: 74022; 80053; 81003; 83735; 84443; 85025; 93005; 96360

== ENCOUNTER 2023-03-01 14:33 | Emergency (ER) | payer MEDICARE, MEDICAID ==
[2023-03-01 15:32] LABS: #Eosinphils 0.1 thou/uL (0.0-0.7); #Monocytes 0.8 thou/uL (0.11-0.59); #Neutrophils 4.9 thou/uL (1.40-6.50); %Basophils 0.5 % (0.0-1.0); %Eosinophils 0.8 % (0.0-10.0); %Lymphocytes 19.7 % (21.0-51.0); %Monocytes 11.5 % (0.0-10.0); %Neutrophils 67.2 % (42.0-75.0); Hemoglobin 13.9 g/dL (12.0-16.0); Mean Corpuscular HGB CONC 34.4 g/dL (32.0-36.0); Mean Corpuscular Hemoglobin 30.5 pg (27.0-31.0); Mean Corpuscular Volume 88.6 fl (78.0-98.0); Mean Platelet Volume 9.7 fL (7.4-10.4); Platelet Count 228 10x3/uL (130-400); RBC Distribution Width 12.5 % (11.5-14.5); Red Blood Cell (RBC) Count 4.56 mill/uL (4.20-5.40); White Blood Cell (WBC) Count 7.3 10x3/uL (4.8-10.8)
[2023-03-01 15:58] LABS: ALT (SGPT) 14 U/L (8-55); AST (SGOT) 12 U/L (5-34); Albumin 4.1 g/dL (3.4-4.8); Alkaline Phosphatase 75 U/L (40-110); Anion Gap 13 mmol/L (10-20); BUN (Urea Nitrogen) 14 mg/dL (9.8-20.1); Bilirubin, Total 0.7 mg/dL (0.2-1.2); Calc. Creatinine Clearance 0 mL/min (70-130); Calcium 9.8 mg/dL (7.8-10.44); Carbon Dioxide 25 mmol/L (23-31); Chloride 103 mmol/L (98-107); Estimated GFR 78; Globulin 2.7 g/dL (2.4-3.5); Glucose 88 mg/dL (83-110); Potassium 4.1 mmol/L (3.5-5.1); Protein, Total 6.8 g/dL (5.8-8.1); Sodium 137 mmol/L (136-145)
[2023-03-01 17:23] LABS: Bacteria/HPF None Seen HPF (None Seen); Bilirubin Negative (Negative); Blood, Urine Negative (Negative); CAUTI Indications for Culture Dysuria,urgency,freq; Clarity Clear (Clear); Glucose, Urine (Dipstick) Normal (Negative); Ketone, Urine Negative (Negative); Leukocyte Negative Leu/uL (Negative); Nitrite Negative (Negative); Protein, Urine (Dipstick) Negative (Neg-Trace); RBC/HPF 0-3 HPF (0-3); Specific Gravity, Urine 1.005 (1.002-1.036); Squamous Epithelial 0-3 HPF (0-3); Urobilinogen Normal mg/dL (Less than 2); WBC/HPF 0-3 HPF (0-3)
[2023-03-01 17:24] LABS: Urine Culture Reflex No No
== END 2023-03-01 22:29 | disposition home or self-care (01) ==
LOC: ERS 14:33
DX: R53.1 Weakness (principal); R42 Dizziness and giddiness; E78.00 Pure hypercholesterolemia, unspecified; I10 Essential (primary) hypertension; E03.9 Hypothyroidism, unspecified; Z79.899 Other long term (current) drug therapy; Z79.82 Long term (current) use of aspirin
CPT/HCPCS: 71045; 80053; 81001; 83880; 84484; 85025; 93005

== ENCOUNTER 2023-03-06 14:18 | Emergency (ER) | payer MEDICARE, MEDICAID ==
[2023-03-06 15:03] LABS: #Basophils 0.1 thou/uL (0.0-0.2); #Eosinphils 0.1 thou/uL (0.0-0.7); #Monocytes 0.8 thou/uL (0.11-0.59); #Neutrophils 4.3 thou/uL (1.40-6.50); %Basophils 0.8 % (0.0-1.0); %Eosinophils 0.9 % (0.0-10.0); %Lymphocytes 20.5 % (21.0-51.0); %Monocytes 11.8 % (0.0-10.0); %Neutrophils 65.7 % (42.0-75.0); Hemoglobin 14.4 g/dL (12.0-16.0); Mean Corpuscular HGB CONC 34.5 g/dL (32.0-36.0); Mean Corpuscular Hemoglobin 30.8 pg (27.0-31.0); Mean Corpuscular Volume 89.1 fl (78.0-98.0); Mean Platelet Volume 9.5 fL (7.4-10.4); Platelet Count 238 10x3/uL (130-400); RBC Distribution Width 12.6 % (11.5-14.5); Red Blood Cell (RBC) Count 4.68 mill/uL (4.20-5.40); White Blood Cell (WBC) Count 6.6 10x3/uL (4.8-10.8)
[2023-03-06 15:15] LABS: Bacteria/HPF None Seen HPF (None Seen); Bilirubin Negative (Negative); Blood, Urine Negative (Negative); CAUTI Indications for Culture Alt mental st,lethar; Clarity Clear (Clear); Glucose, Urine (Dipstick) Normal (Negative); Ketone, Urine Negative (Negative); Leukocyte Negative Leu/uL (Negative); Nitrite Negative (Negative); Protein, Urine (Dipstick) Negative (Neg-Trace); RBC/HPF 0-3 HPF (0-3); Specific Gravity, Urine 1.011 (1.002-1.036); Squamous Epithelial 0-3 HPF (0-3); Urobilinogen Normal mg/dL (Less than 2); WBC/HPF 0-3 HPF (0-3)
[2023-03-06 15:17] LABS: Urine Culture Reflex No No
[2023-03-06 15:25] LABS: ALT (SGPT) 14 U/L (8-55); AST (SGOT) 13 U/L (5-34); Albumin 4.1 g/dL (3.4-4.8); Alkaline Phosphatase 70 U/L (40-110); Anion Gap 10 mmol/L (10-20); BUN (Urea Nitrogen) 14 mg/dL (9.8-20.1); Bilirubin, Total 0.6 mg/dL (0.2-1.2); Calc. Creatinine Clearance 0 mL/min (70-130); Calcium 10.5 mg/dL (7.8-10.44); Carbon Dioxide 29 mmol/L (23-31); Chloride 103 mmol/L (98-107); Estimated GFR 82; Globulin 3.3 g/dL (2.4-3.5); Glucose 89 mg/dL (83-110); Potassium 4.4 mmol/L (3.5-5.1); Protein, Total 7.4 g/dL (5.8-8.1); Sodium 138 mmol/L (136-145)
[2023-03-06] MEDS ORDERED: Meclizine HCl 25 MG TAB ONE (16:09)
== END 2023-03-06 16:42 ==
LOC: ERS 14:18
DX: R42 Dizziness and giddiness (principal); E78.00 Pure hypercholesterolemia, unspecified; E03.9 Hypothyroidism, unspecified; I10 Essential (primary) hypertension; Z79.899 Other long term (current) drug therapy; Z79.82 Long term (current) use of aspirin
CPT/HCPCS: 70450; 80053; 81001; 84484; 85025; 93005; 94760

== ENCOUNTER 2023-07-30 10:17 | Emergency (ER) | payer MEDICARE, MEDICAID ==
[2023-07-30 11:21] LABS: #Eosinphils 0.1 thou/uL (0.0-0.7); #Monocytes 0.6 thou/uL (0.11-0.59); #Neutrophils 2.2 thou/uL (1.40-6.50); %Basophils 0.8 % (0.0-1.0); %Eosinophils 1.8 % (0.0-10.0); %Lymphocytes 26.8 % (21.0-51.0); %Monocytes 14.8 % (0.0-10.0); %Neutrophils 55.8 % (42.0-75.0); Hematocrit 39.4 % (36.0-47.0); Hemoglobin 13.5 g/dL (12.0-16.0); Mean Corpuscular HGB CONC 34.3 g/dL (32.0-36.0); Mean Corpuscular Hemoglobin 30.3 pg (27.0-31.0); Mean Corpuscular Volume 88.3 fl (78.0-98.0); Mean Platelet Volume 9.8 fL (7.4-10.4); Platelet Count 189 10x3/uL (130-400); RBC Distribution Width 12.4 % (11.5-14.5); Red Blood Cell (RBC) Count 4.46 mill/uL (4.20-5.40)
[2023-07-30 12:34] LABS: ALT (SGPT) 11 U/L (8-55); AST (SGOT) 13 U/L (5-34); Albumin 3.9 g/dL (3.4-4.8); Alkaline Phosphatase 51 U/L (40-110); Anion Gap 13 mmol/L (10-20); BUN (Urea Nitrogen) 16 mg/dL (9.8-20.1); Bilirubin, Total 1.2 mg/dL (0.2-1.2); Calc. Creatinine Clearance 0 mL/min (70-130); Calcium 9.3 mg/dL (7.8-10.44); Carbon Dioxide 24 mmol/L (23-31); Chloride 105 mmol/L (98-107); Estimated GFR 91; Globulin 2.4 g/dL (2.4-3.5); Glucose 94 mg/dL (83-110); Magnesium 1.7 mg/dL (1.6-2.6); Potassium 3.7 mmol/L (3.5-5.1); Protein, Total 6.3 g/dL (5.8-8.1); Sodium 138 mmol/L (136-145)
[2023-07-30 12:40] LABS: Bacteria/HPF None Seen HPF (None Seen); Bilirubin Negative (Negative); Blood, Urine Negative (Negative); CAUTI Indications for Culture Alt mental st,lethar; Clarity Clear (Clear); Glucose, Urine (Dipstick) Normal (Negative); Ketone, Urine Trace mg/dL (Negative); Leukocyte 25 Leu/uL (Negative); Nitrite Negative (Negative); Protein, Urine (Dipstick) Negative (Neg-Trace); RBC/HPF 0-3 HPF (0-3); Specific Gravity, Urine 1.013 (1.002-1.036); Urobilinogen Normal mg/dL (Less than 2)
[2023-07-30 12:42] LABS: Urine Culture Reflex No No
[2023-07-30] MEDS ORDERED: Acetaminophen 500 MG TAB ONE (17:04)
== END 2023-07-30 17:27 | disposition home or self-care (01) ==
LOC: ERS 10:17
DX: R19.7 Diarrhea, unspecified (principal); R11.2 Nausea with vomiting, unspecified; R53.1 Weakness; I10 Essential (primary) hypertension; E03.9 Hypothyroidism, unspecified; E78.00 Pure hypercholesterolemia, unspecified; Z79.899 Other long term (current) drug therapy; Z79.82 Long term (current) use of aspirin
CPT/HCPCS: 74176; 80053; 81001; 83735; 84443; 85025; 93005; 96361; 96374

== ENCOUNTER 2025-07-02 14:58 | Inpatient (IN) | payer MEDICARE ==
[2025-07-02 16:11] LABS: #Basophils 0.04 10x3/uL (0.0-0.2); #Eosinophils 0.05 10x3/uL (0.0-0.7); #Monocytes 0.70 10x3/uL (0.11-0.59); #Neutrophils 4.51 10x3/uL (1.40-6.50); %Basophils 0.6 % (0.0-1.0); %Eosinophils 0.8 % (0.0-10.0); %Lymphocytes 19.1 % (21.0-51.0); %Monocytes 10.7 % (0.0-10.0); %Neutrophils 68.6 % (42.0-75.0); Hematocrit 41.0 % (36.0-47.0); Hemoglobin 13.5 g/dL (12.0-16.0); Mean Corpuscular Hemoglobin 29.1 pg (27.0-31.0); Mean Corpuscular Volume 88.4 fL (78.0-98.0); Platelet Count 196 10x3/uL (130-400); Red Blood Cell (RBC) Count 4.64 mill/uL (4.20-5.40); White Blood Cell (WBC) Count 6.56 10x3/uL (4.8-10.8)
[2025-07-02 16:21] LABS: Bacteria/HPF None Seen HPF (None Seen); CAUTI Indications for Culture Pelvic or flank pain; Glucose, Urine (Dipstick) Normal (Negative); Leukocyte Negative Leu/uL (Negative); Protein, Urine (Dipstick) Negative (Neg-Trace); RBC/HPF 0-3 HPF (0-3); Specific Gravity, Urine 1.011 (1.002-1.036); WBC/HPF 0-3 HPF (0-3)
[2025-07-02 16:29] LABS: Urine Culture Reflex No No
[2025-07-02 16:38] LABS: ALT (SGPT) 16 U/L (Less than 34); Albumin 3.6 g/dL (3.1-4.5); Alkaline Phosphatase 72 U/L (40-110); Anion Gap 12 mmol/L (10-20); BUN (Urea Nitrogen) 18 mg/dL (9.8-20.1); Bilirubin, Total 0.7 mg/dL (0.3-1.2); Calc. Creatinine Clearance 0 mL/min (70-130); Calcium 9.2 mg/dL (7.8-10.44); Carbon Dioxide 24 mmol/L (23-31); Chloride 104 mmol/L (98-107); Globulin 3.2 g/dL (2.4-3.5); Glucose 89 mg/dL (83-110); Magnesium 1.9 mg/dL (1.6-2.6); Potassium 4.5 mmol/L (3.5-5.1); Sodium 135 mmol/L (136-145)
[2025-07-02 16:48] LABS: AST (SGOT) 20 U/L (11-34)
[2025-07-02] MEDS ORDERED: Nitroglycerin 0.4 MG TAB (25 Tab Bottle) SL PRN (17:25)
[2025-07-02] MEDS ORDERED: Ondansetron PF 4 MG/2 ML Vial IVP PRN (17:28)
[2025-07-02] MEDS ORDERED: Aspirin Chewable 81 MG TAB ONE (17:33)
[2025-07-02 22:17] VITALS: BMI 30.7
[2025-07-03 06:44] LABS: #Basophils 0.03 10x3/uL (0.0-0.2); #Eosinophils 0.12 10x3/uL (0.0-0.7); #Monocytes 0.80 10x3/uL (0.11-0.59); #Neutrophils 3.47 10x3/uL (1.40-6.50); %Basophils 0.5 % (0.0-1.0); %Eosinophils 2.1 % (0.0-10.0); %Lymphocytes 23.5 % (21.0-51.0); %Monocytes 13.8 % (0.0-10.0); %Neutrophils 59.9 % (42.0-75.0); Hematocrit 41.1 % (36.0-47.0); Hemoglobin 13.5 g/dL (12.0-16.0); Mean Corpuscular Hemoglobin 29.1 pg (27.0-31.0); Mean Corpuscular Volume 88.6 fL (78.0-98.0); Platelet Count 197 10x3/uL (130-400); Red Blood Cell (RBC) Count 4.64 mill/uL (4.20-5.40); White Blood Cell (WBC) Count 5.79 10x3/uL (4.8-10.8)
[2025-07-03 07:12] LABS: Anion Gap 11 mmol/L (10-20); BUN (Urea Nitrogen) 14 mg/dL (9.8-20.1); Calc. Creatinine Clearance 89 mL/min (70-130); Calcium 9.4 mg/dL (7.8-10.44); Carbon Dioxide 28 mmol/L (23-31); Cardiac Risk 3.4 (Less than 4.5); Chloride 106 mmol/L (98-107); Cholesterol 162 mg/dl (< 200 Desired); Glucose 87 mg/dL (83-110); HDL Cholesterol 47 mg/dL (>60 Neg Risk); LDL Cholesterol, Calculated 93 mg/dL; Magnesium 1.9 mg/dL (1.6-2.6); Potassium 4.5 mmol/L (3.5-5.1); Sodium 140 mmol/L (136-145); Triglycerides 108 mg/dL (Less than 150)
[2025-07-03] MEDS ORDERED: Aspirin Chewable 81 MG TAB PO SCH (09:00)
[2025-07-03] MEDS: Aspirin Chewable 81 MG TAB PO SCH (11:16)
[2025-07-03] MEDS: Lisinopril 10 MG TAB PO SCH (11:17)
[2025-07-03] MEDS: Sertraline 25 MG TAB PO SCH (11:18)
[2025-07-03] MEDS: Acetaminophen 325 MG TAB PO PRN (19:16)
[2025-07-04 05:58] LABS: #Basophils 0.03 10x3/uL (0.0-0.2); #Eosinophils 0.11 10x3/uL (0.0-0.7); #Monocytes 0.65 10x3/uL (0.11-0.59); #Neutrophils 3.06 10x3/uL (1.40-6.50); %Basophils 0.6 % (0.0-1.0); %Eosinophils 2.1 % (0.0-10.0); %Lymphocytes 26.9 % (21.0-51.0); %Monocytes 12.3 % (0.0-10.0); %Neutrophils 57.9 % (42.0-75.0); Hematocrit 41.6 % (36.0-47.0); Hemoglobin 13.4 g/dL (12.0-16.0); Mean Corpuscular Hemoglobin 28.8 pg (27.0-31.0); Mean Corpuscular Volume 89.5 fL (78.0-98.0); Platelet Count 194 10x3/uL (130-400); Red Blood Cell (RBC) Count 4.65 mill/uL (4.20-5.40); White Blood Cell (WBC) Count 5.28 10x3/uL (4.8-10.8)
[2025-07-04 06:24] LABS: ALT (SGPT) 15 U/L (Less than 34); AST (SGOT) 17 U/L (11-34); Albumin 3.4 g/dL (3.1-4.5); Alkaline Phosphatase 69 U/L (40-110); Anion Gap 9 mmol/L (10-20); BUN (Urea Nitrogen) 9 mg/dL (9.8-20.1); Bilirubin, Total 0.7 mg/dL (0.3-1.2); Calc. Creatinine Clearance 93 mL/min (70-130); Calcium 9.2 mg/dL (7.8-10.44); Carbon Dioxide 26 mmol/L (23-31); Chloride 106 mmol/L (98-107); Globulin 3.2 g/dL (2.4-3.5); Glucose 95 mg/dL (83-110); Potassium 4.0 mmol/L (3.5-5.1); Sodium 137 mmol/L (136-145)
[2025-07-04] MEDS: FLU (Fluad Triv) 25-26 (65UP)PF 45 MCG/0.5 ML Syringe IM ONE (07:44)
[2025-07-04 16:39] VITALS: BP 123/65; TEMP 97.6
== END 2025-07-04 17:45 | disposition home or self-care (01) | DRG 313 ==
LOC: ERS 14:58 → OBS 17:25 → OBSVTOIN 07-03 13:24
PROVIDERS: ADMIT Internal Medicine; ATTEND Student in an Organized Health Care Education/Training Program
DX: R07.89 Other chest pain (principal); R53.81 Other malaise; Z88.8 Allergy status to other drugs, medicaments and biological substances; Z79.899 Other long term (current) drug therapy; I10 Essential (primary) hypertension; E78.5 Hyperlipidemia, unspecified; E03.9 Hypothyroidism, unspecified; F41.9 Anxiety disorder, unspecified; F32.A Depression, unspecified; Z98.890 Other specified postprocedural states; Z80.8 Family history of malignant neoplasm of other organs or systems; R11.0 Nausea; R62.7 Adult failure to thrive; R00.1 Bradycardia, unspecified
CPT/HCPCS: 36415; 70450; 71045; 80048; 80053; 80061; 81001; 83735; 83880; 84443; 84484; 85025; 93005; 94760; G0378

== ENCOUNTER 2025-07-14 11:52 | Emergency (ER) | payer MEDICARE ==
[2025-07-14 13:00] LABS: #Basophils 0.03 10x3/uL (0.0-0.2); #Eosinophils 0.09 10x3/uL (0.0-0.7); #Monocytes 0.56 10x3/uL (0.11-0.59); #Neutrophils 2.73 10x3/uL (1.40-6.50); %Basophils 0.7 % (0.0-1.0); %Eosinophils 2.1 % (0.0-10.0); %Lymphocytes 22.0 % (21.0-51.0); %Monocytes 12.8 % (0.0-10.0); %Neutrophils 62.4 % (42.0-75.0); Hematocrit 42.0 % (36.0-47.0); Hemoglobin 14.2 g/dL (12.0-16.0); Mean Corpuscular Hemoglobin 29.6 pg (27.0-31.0); Mean Corpuscular Volume 87.7 fL (78.0-98.0); Platelet Count 186 10x3/uL (130-400); Red Blood Cell (RBC) Count 4.79 mill/uL (4.20-5.40); White Blood Cell (WBC) Count 4.37 10x3/uL (4.8-10.8)
[2025-07-14 13:31] LABS: ALT (SGPT) 18 U/L (Less than 34); AST (SGOT) 22 U/L (11-34); Albumin 3.6 g/dL (3.1-4.5); Alkaline Phosphatase 68 U/L (40-110); Anion Gap 15 mmol/L (10-20); BUN (Urea Nitrogen) 17 mg/dL (9.8-20.1); Bilirubin, Total 0.9 mg/dL (0.3-1.2); CK (CPK) 32 U/L (29-168); Calc. Creatinine Clearance 0 mL/min (70-130); Calcium 9.5 mg/dL (7.8-10.44); Carbon Dioxide 24 mmol/L (23-31); Chloride 104 mmol/L (98-107); Globulin 3.1 g/dL (2.4-3.5); Glucose 93 mg/dL (83-110); Magnesium 1.9 mg/dL (1.6-2.6); Potassium 4.4 mmol/L (3.5-5.1); Sodium 139 mmol/L (136-145)
== END 2025-07-14 20:21 | disposition home or self-care (01) ==
LOC: ERS 11:52
DX: R53.1 Weakness (principal); I10 Essential (primary) hypertension; E78.5 Hyperlipidemia, unspecified; E03.9 Hypothyroidism, unspecified; Z79.82 Long term (current) use of aspirin; Z79.899 Other long term (current) drug therapy; Z79.890 Hormone replacement therapy; Z85.42 Personal history of malignant neoplasm of other parts of uterus
CPT/HCPCS: 80053; 82550; 83735; 84443; 85025; 93005; 94760; 99285